=== PATIENT | female | born 1940 | race Caucasian/White ===

== ENCOUNTER → 2020-01-24 13:20 | Outpatient (BNVA) | payer MEDICARE, SELFPAY | PROVIDERS: PCP Family Medicine; Visit Provider Nurse Practitioner Family | DX: E11.65 Type 2 diabetes mellitus with hyperglycemia (principal); E55.9 Vitamin D deficiency, unspecified; Z79.4 Long term (current) use of insulin; E03.9 Hypothyroidism, unspecified; E78.5 Hyperlipidemia, unspecified; N18.9 Chronic kidney disease, unspecified | CPT/HCPCS: 80053; 80061; 82306; 83036; 83721; 84443; 85025 ==

== ENCOUNTER → 2020-09-18 08:40 | Outpatient (BNVA) | payer MEDICARE, SELFPAY | PROVIDERS: PCP Nurse Practitioner Family; Visit Provider Family Medicine | DX: E03.9 Hypothyroidism, unspecified (principal); E78.5 Hyperlipidemia, unspecified; N18.9 Chronic kidney disease, unspecified; E11.65 Type 2 diabetes mellitus with hyperglycemia; E55.9 Vitamin D deficiency, unspecified; Z79.4 Long term (current) use of insulin | CPT/HCPCS: 80053; 80061; 82306; 83036; 84443; 85025 ==

== ENCOUNTER → 2021-05-27 16:09 | Outpatient (BNVA) | payer MEDICARE, SELFPAY | PROVIDERS: PCP Nurse Practitioner Family; Visit Provider Internal Medicine Nephrology | DX: I10 Essential (primary) hypertension (principal); E55.9 Vitamin D deficiency, unspecified; E78.5 Hyperlipidemia, unspecified; E03.9 Hypothyroidism, unspecified; E11.65 Type 2 diabetes mellitus with hyperglycemia; Z79.4 Long term (current) use of insulin | CPT/HCPCS: 80053; 80061; 82043; 82306; 83036; 84100; 84443; 85025 ==

== ENCOUNTER 2021-06-08 09:25 | Outpatient (CLI) | payer MEDICARE, SELFPAY ==
--- NOTE | 2021-06-08 09:32 | US_ITS ---
WS: [id number] ULTRASOUND RENAL TECHNIQUE: Ultrasound examination of both kidneys. CLINICAL INFORMATION: CHRONIC KIDNEY DZ STAGE 4 COMPARISON: None. FINDINGS: RIGHT: Small simple right cortical cyst measuring 1.1 x 1.1 x 1.2 cm Right kidney is normal in size and appearance. Echogenicity: Normal. Cortical thickness: 1.3 cm; Normal. Hydronephrosis: None. Perinephric fluid: None. Right kidney measures: 9.6 cm x 4.7 cm x 5.3 cm. LEFT: Left kidney is normal in size and appearance. Echogenicity: Normal. Cortical thickness: cm; Normal. Hydronephrosis: None. Perinephric fluid: None. Left kidney measures: 9.6 cm x 5.1 cm x 5.4 cm. Normal visualized aorta. Normal bladder US/US renal BI* [id number] IMPRESSION: 1. Small simple right cortical cyst measuring 1.1 x 1.1 x 1.2 cm 2. No hydronephrosis in either kidney.
== END 2021-06-08 09:26 | disposition home or self-care (01) ==
PROVIDERS: PCP Family Medicine; Visit Provider Internal Medicine Nephrology
DX: N18.4 Chronic kidney disease, stage 4 (severe) (principal); N28.1 Cyst of kidney, acquired
CPT/HCPCS: 76770

== ENCOUNTER → 2021-08-25 09:37 | Outpatient (BNVA) | payer MEDICARE, SELFPAY | PROVIDERS: PCP Family Medicine; Visit Provider Internal Medicine Nephrology | DX: N18.4 Chronic kidney disease, stage 4 (severe) (principal) | CPT/HCPCS: 80069; 82043; 82310; 83970 ==

== ENCOUNTER → 2021-09-30 11:37 | Outpatient (BNVA) | payer MEDICARE, SELFPAY | PROVIDERS: PCP Family Medicine; Visit Provider Family Medicine | DX: E11.65 Type 2 diabetes mellitus with hyperglycemia (principal); Z79.4 Long term (current) use of insulin; E03.9 Hypothyroidism, unspecified; E78.2 Mixed hyperlipidemia; E55.9 Vitamin D deficiency, unspecified; I10 Essential (primary) hypertension | CPT/HCPCS: 80053; 80061; 82306; 83036; 84443; 85025 ==

== ENCOUNTER → 2022-06-02 10:12 | Outpatient (BNVA) | payer MEDICARE, SELFPAY | PROVIDERS: PCP Family Medicine; Visit Provider Family Medicine | DX: I10 Essential (primary) hypertension (principal); E55.9 Vitamin D deficiency, unspecified; Z79.4 Long term (current) use of insulin; E78.2 Mixed hyperlipidemia; K21.9 Gastro-esophageal reflux disease without esophagitis; E03.9 Hypothyroidism, unspecified; E11.65 Type 2 diabetes mellitus with hyperglycemia | CPT/HCPCS: 80053; 80061; 82306; 83036; 84443; 85025 ==

== ENCOUNTER → 2022-07-13 08:59 | Outpatient (BNVA) | payer MEDICARE, SELFPAY | PROVIDERS: PCP Family Medicine; Referring Provider Family Medicine; Visit Provider Podiatrist Foot & Ankle Surgery | DX: E11.65 Type 2 diabetes mellitus with hyperglycemia (principal); Z79.4 Long term (current) use of insulin; M21.611 Bunion of right foot; M21.612 Bunion of left foot; M20.41 Other hammer toe(s) (acquired), right foot; M20.42 Other hammer toe(s) (acquired), left foot | CPT/HCPCS: 99204 ==

== ENCOUNTER → 2022-09-20 09:00 | Outpatient (BNVA) | payer MEDICARE, SELFPAY | PROVIDERS: PCP Family Medicine; Visit Provider Family Medicine | DX: E55.9 Vitamin D deficiency, unspecified (principal); E11.65 Type 2 diabetes mellitus with hyperglycemia; Z79.4 Long term (current) use of insulin; I10 Essential (primary) hypertension | CPT/HCPCS: 80053; 82306; 83036; 85025 ==

== ENCOUNTER 2022-11-20 00:11 | Emergency (ER) | payer MEDICARE, SELFPAY ==
[2022-11-20 00:29] VITALS: BP 154/73; PULSE 68; RESP 18; TEMP 37.1; O2SAT 94; BMI 26.9
[2022-11-20 01:02] VITALS: BP 168/70; PULSE 60; RESP 16; O2SAT 97
--- NOTE | 2022-11-20 01:08 | ECG_ITS ---
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 Measurements Intervals [place] Rate: 68 P: 0 GA: 0 QRS: -23 QRSD: 83 T: 22 QT: 397 QTc: 423 Interpretive Statements SINUS RHYTHM WITH FIRST DEGREE AV BLOCK LOW QRS VOLTAGE IN PRECORDIAL LEADS [QRS DEFLECTION < 1.0 mV IN CHEST LEADS] POSSIBLE RIGHT VENTRICULAR CONDUCTION DELAY [RSR (QR) IN V1/V2] POSSIBLE ANTERIOR MYOCARDIAL INFARCTION , PROBABLY OLD INFERIOR MYOCARDIAL INFARCTION , PROBABLY OLD Compared to ECG 02/20/2015 16:02:37 Supraventricular rhythm now present Low QRS voltage now present Myocardial infarct finding now present Sinus rhythm no longer present First degree AV block no longer present Incomplete right bundle-branch block no longer present Electronically Signed On 11-20-2022 8:16:03 WORKERS' COMPENSATION CLAIMS SUPERVISOR by Ghazal Santamaria M.D. [id number]
[2022-11-20 01:09] LABS: Glucose Point of Care 63 mg/dL (70-110)
--- NOTE | 2022-11-20 01:26 | XRR_ITS ---
PROCEDURE INFORMATION: Exam: XR Chest Exam date and time: 11/20/2022 1:32 AM Age: 82 years old Clinical indication: Other: Dizzy; Additional info: Dizzy, diaphroesis TECHNIQUE: Imaging protocol: Radiologic exam of the chest. Views: 1 view. COMPARISON: No relevant prior studies available. FINDINGS: Lungs: There are increased interstitial opacity seen in the mid lower hemithoraces bilaterally, findings that could represent mild pulmonary edema. There are some strandy opacities present in the lower hemithoraces bilaterally that most probably represents atelectasis. Pleural spaces: Unremarkable. No pleural effusion. No pneumothorax. Heart/Mediastinum: Unremarkable. No cardiomegaly. Bones/joints: Unremarkable. XR/XR chest 1V portable [id number] IMPRESSION: 1. Subtle increased interstitial opacities are seen in the mid lower hemithoraces, findings that could represent pulmonary edema. 2. Strandy opacities in the lower hemithoraces most probably represents atelectasis versus parenchymal or pleural scarring.
[2022-11-20 01:30] VITALS: BP 143/70; RESP 16
--- NOTE | 2022-11-20 01:40 | ED_ITS ---
HPI - General Adult General: Chief complaint: General Medical Stated complaint: dizzy, clammy, low bp Time Seen by Provider: 11/20/22 00:50 Source: patient and family History of Present Illness: 82-year-old female with a history of diabetes. She is insulin-dependent. She notes that before arrival this evening, she began to feel exceptionally hot which is uncommon for her. She went into the next room. She was ashen and clammy according to her , but this resolved pretty quickly. She is asymptomatic now. She did not feel ill prior to this. She has not run a fever. She has not had a cough, congestion, or vomiting. Onset (ago): hour(s) Radiation: other Severity: mild Quality: other Pain Consistency: other Relieving factors: other Exacerbating factors: other Associated symptoms: Reports diaphoresis; Deny chest pain, confusion, cough, dyspnea, fevers/chills, headache(s), short of breath, vomiting or weakness Treatments prior to arrival: none Review of Systems Const: Reports: diaphoresis; Denies: fever(s) Eyes: Denies: change in vision ENMT: Denies: throat pain Card: Denies: chest pain Resp: Denies: dyspnea, productive cough or non-productive cough GI: Denies: abdominal pain or vomiting : Denies: difficulty voiding Neuro: Denies: headache(s) or confusion PFSH ED PFSH: Medical History Anxiety CKD (chronic kidney disease) Diabetes mellitus Foot deformity, bilateral GERD (gastroesophageal reflux disease) Hx of ovarian cancer Hx of pancreatitis Hyperlipidemia Hypertension Hypothyroid Iron deficiency anemia Osteoporosis Vitamin D deficiency Surgical History Hx of colonoscopy (~2013) Hx of hysterectomy Hx of thyroidectomy Family History Father Cancer Social History Smoking and tobacco status: never smoked Physical Exam Const: COMMON NORMALS: no acute distress GENERAL APPEARANCE: cooperative, comfortable and well kempt; not ill appearing and not frail appearing ORIENTATION/CONSCIOUSNESS: Yes awake, Yes oriented to person, Yes oriented to place and Yes oriented to time HENMT: COMMON NORMALS: normocephalic, atraumatic and Normal external nose present HEAD & SCALP: normocephalic and atraumatic FACE & SINUS: normal facial exam and face symmetric NOSE: Normal external nose present Eye: COMMON NORMALS: Equal, round and reactive pupils present and EOMs intact bilaterally PUPIL: Yes Equal, round and reactive pupils present Neck/C-Spine: GENERAL: Yes trachea midline Chest: CHEST: Yes Symmetrical chest wall rise Resp: COMMON NORMALS: normal respiratory effort, No retractions, No use of accessory muscles and clear to auscultation bilaterally AUSCULTATION: clear to auscultation bilaterally Cardio: COMMON NORMALS: regular rate and regular rhythm RATE: regular rate RHYTHM: regular rhythm GI: COMMON NORMALS: Normal to inspection, nondistended, normoactive bowel sounds present Extremity: COMMON NORMALS: no pedal edema Neuro: SERGEY COMA SCALE: document GCS findings Sergey coma scale eye opening: Spontaneous [place] coma scale verbal response: Orientated Sergey coma scale motor response: Obey commands [place] coma scale total score: 15 SENSORIUM/ORIENTATION: Yes oriented to person, Yes oriented to place and Yes oriented to time SENSORY EXAM: Yes extremities (intact) Psych: COMMON NORMALS: speech normal APPEARANCE: Yes well kempt SPEECH: Yes normal speech Skin: COMMON NORMALS: no rashes or lesions noted GENERAL SKIN EXAM: no rashes or lesions noted Course Vital Signs: Vital signs: Vital Signs Temperature 98.7 F 11/20/22 00:29 Pulse Rate 60 11/20/22 01:02 Respiratory Rate 16 11/20/22 01:30 Blood Pressure 143/70 11/20/22 01:30 Pulse Oximetry 97 11/20/22 01:02 Oxygen Delivery Me thod 11/20/22 00:29 [facility] - General Adult Medical Decision Making On presentation, patient's bedside glucose is 63. He is asymptomatic now, but this is likely the cause of her diaphoresis and hot feeling at home. Again, she is asymptomatic now. COVID and flu are pending.Chest x-ray is stable from prior. EKG shows a sinus rhythm with a first-degree AV block normal axis and no acute ST wave changes. Rate is 68. Urinalysis is pending. Urinalysis shows significant pyuria. We will treat this as well. Otherwise the patient remains asymptomatic, and stable. She will be allowed discharge. Lab Data Radiology Impressions Chest X-Ray 11/20/22 01:26 IMPRESSION: 1. Subtle increased interstitial opacities are seen in the mid lower hemithoraces, findings that could represent pulmonary edema. 2. Strandy opacities in the lower hemithoraces most probably represents atelectasis versus parenchymal or pleural scarring. Laboratory Results POC Glucose 71 mg/dL (70-110) 11/20/22 01:51 Urine Color Yellow (Yellow) 11/20/22 02:14 Urine Appearance Clear (CLEAR) 11/20/22 02:14 Urine pH 5 (5-7) 11/20/22 02:14 Ur Specific [place] 1.015 (1.005-1.030) 11/20/22 02:14 Urine Protein Neg (Negative) 11/20/22 02:14 Urine Glucose (UA) 1+ (Normal) H 11/20/22 02:14 Urine Ketones Negative (Negative) 11/20/22 02:14 Urine Blood Neg (Negative) 11/20/22 02:14 Urine Nitrate Negative (Negative) 11/20/22 02:14 Urine Bilirubin Neg (Negative) 11/20/22 02:14 Urine Urobilinogen Norm mg/dL (Negative) 11/20/22 02:14 Ur Leukocyte Esterase 1+ (Negative) H 11/20/22 02:14 Urine RBC 0-4 /hpf (0-2) H 11/20/22 02:14 Urine WBC 40-55 /hpf (0-5) H 11/20/22 02:14 Ur Squamous Epith Cells 0-4 /hpf (0-5) H 11/20/22 02:14 Amorphous Sediment Not Reportable 11/20/22 02:14 Urine Bacteria 3+ /hpf (NONE) H 11/20/22 02:14 Influenza Type A Ag negative (Negative) 11/20/22 01:07 Influenza Type B Ag negative (Negative) 11/20/22 01:07 SARS-CoV-2 Ag (Rapid) negative (Negative) 11/20/22 01:07 Discharge Plan Discharge Patient Disposition: Home Clinical Impression: Urinary tract infection, Hypoglycemia Condition: Stable Prescriptions: New levofloxacin 500 mg tablet 500 mg PO DAILY 7 Days Qty: 7 0RF No Action aspirin [Adult Low Dose Aspirin] 81 mg tablet,delayed release (DR/EC) 81 mg PO DAILY rosuvastatin 20 mg tablet See Rx Instructions .ROUTE .COMPLEX Qty: 90 3RF Dose Instruction: TAKE 1 TABLET BY MOUTH DAILY Rx Instructions: TAKE 1 TABLET BY MOUTH DAILY fluticasone propionate [Flonase Allergy Relief] 50 mcg/actuation spray,suspension 2 spray intranasal DAILY Qty: 16 1RF Rx Instructions: administer into each nostril glipizide 5 mg tablet 5 mg PO BID Qty: 180 3RF Rx Instructions: NEEDS APPOINTMENT insulin glargine [Lantus Solostar U-100 Insulin] 100 unit/mL (3 mL) insulin pen 23 unit SUBCUT BID Qty: 15 3RF levothyroxine 75 mcg tablet See Rx Instructions .ROUTE .COMPLEX Qty: 30 3RF Dose Instruction: Take 1 tablet by mouth once daily Rx Instructions: Take 1 tablet by mouth once daily losartan-hydrochlorothiazide 50-12.5 mg tablet See Rx Instructions .ROUTE .COMPLEX Qty: 90 3RF Dose Instruction: TAKE 1 TABLET BY MOUTH DAILY Rx Instructions: TAKE 1 TABLET BY MOUTH DAILY ([facility] [place]) pen needle, diabetic [BD Ultra-Fine Mini Pen Needle] 31 gauge x 3/16 needle See Rx Instructions .ROUTE .MEDSUPPLY Qty: 50 4RF Rx Instructions: As directed omega 6-owi-kxa-fish oil [Fish Oil] 1,000 mg (120 mg-180 mg) capsule 1 cap PO BID Qty: 60 3RF ergocalciferol (vitamin D2) 50 mcg (2,000 unit) capsule 50 mcg PO DAILY Qty: 30 2RF Jardiance 25 mg tablet 25 mg PO DAILY Qty: 30 4RF Rx Instructions: 340 B loratadine 10 mg tablet 10 mg PO DAILY (DME) lancets Misc See Rx Instructions .Route Qty: 100 1RF Rx Instructions: As directed ([facility] [place]) blood-glucose meter Kit See Rx Instructions .Route Qty: 1 0RF Rx Instructions: check blood sugar fasting and 2 hours after largest meal of the day (DME) Diabetic shoes See Rx Instructions .Route .MEDSUPPLY Qty: 1 0RF Rx Instructions: As directed ([facility] [place]) OneTouch Ultra Test Strip See Rx Instructions .ROUTE .COMPLEX Qty: 100 5RF Dose Instruction: USE 1 STRIP TO CHECK GLUCOSE 4 TIMES DAILY DIRECTED Rx Instructions: USE 1 STRIP TO CHECK GLUCOSE 4 TIMES DAILY DIRECTED Discharge Orders: Discharge ED (Routine); Ordered 11/20/22 Ordered By: Roverto Harvey Referrals: Ariadne Campos MD [Primary Care Provider] - 1-3 days Patient Instructions: Hypoglycemia in a Person with Diabetes (ED), Urinary Tract Infection in Older Adults (ED) Activity Restrictions/Additional Instructions: Continue to check your sugar every 2 hours for the next 8 hours, then back to normal checks. Ensure that your sugar is staying up appropriately. Do not take your nighttime insulin dose this morning. Antibiotics as directed. Return for fever, mental status changes, chest discomfort, shortness of breath, any other concerning symptoms. Coding Level of Care Code ED R&D Lab Technician for Chg Fwd Exam Comprehensive
[2022-11-20 01:58] LABS: Influenza A by IFA negative (Negative); Influenza B by IFA negative (Negative); SARS Covid-2 Antigen negative (Negative)
[2022-11-20 02:12] LABS: Glucose Point of Care 71 mg/dL (70-110)
[2022-11-20 02:30] LABS: Add Urine Microscopic? YES; Bilirubin Urine Neg (Negative); Blood Urine Neg (Negative); Glucose Urine UA 1+ (Normal); Ketones Urine Negative (Negative); Leukocyte Esterase Urine 1+ (Negative); Nitrate Urine Negative (Negative); Protein Urine Neg (Negative); RBC Urine 0-4 /hpf (0-2); Specific Gravity, Urine 1.015 (1.005-1.030); Squamous Epithelial Cell Urine 0-4 /hpf (0-5); Urine Appearance Clear (CLEAR); Urine Color Yellow (Yellow); Urobilinogen Urine Norm (Negative); WBC Urine 40-55 /hpf (0-5); pH Urine 5 (5-7)
[2022-11-20 02:31] LABS: Add Urine Culture? Yes; Bacteria Urine 3+ /hpf
[2022-11-20] MEDS: levoFLOXacin 500 mg Tablet PO (03:21)
== END 2022-11-20 03:22 | disposition home or self-care (01) ==
PROVIDERS: Nurse Practitioner Family; Emergency Provider Emergency Medicine; PCP Family Medicine
DX: N39.0 Urinary tract infection, site not specified (principal); E11.649 Type 2 diabetes mellitus with hypoglycemia without coma; E11.22 Type 2 diabetes mellitus with diabetic chronic kidney disease; I12.9 Hypertensive chronic kidney disease with stage 1 through stage 4 chronic kidney disease, or unspecified chronic kidney disease; N18.9 Chronic kidney disease, unspecified; Z85.43 Personal history of malignant neoplasm of ovary; E78.5 Hyperlipidemia, unspecified; Z79.84 Long term (current) use of oral hypoglycemic drugs; Z79.82 Long term (current) use of aspirin; Z79.4 Long term (current) use of insulin; Z20.822 Contact with and (suspected) exposure to COVID-19
CPT/HCPCS: 36416; 71045; 81001; 82962; 87077; 87086; 87186; 87426; 87804; 93005; 99285

== ENCOUNTER 2022-12-06 13:58 | Outpatient (CLI) | payer MEDICARE, SELFPAY ==
[2022-12-06 14:55] LABS: Basophils # 0.1 10^3/uL (0.0-0.1); Basophils % 0.6 %; Eosinophils # 0.3 10^3/uL (0.0-0.8); Eosinophils % 2.2 %; Hematocrit 34.6 % (37.0-47.0); Hemoglobin 11.2 g/dL (11.5-15.3); Lymphocytes # 3.5 10^3/uL (0.8-4.8); Lymphocytes % 30.5 %; Mean Corpuscular HGB Conc 32.4 g/dL (30.0-36.0); Mean Corpuscular Volume 92.8 fl (81-99); Mean Platelet Volume 9.9 fL (7.4-10.4); Monocytes % 8.8 %; Neutrophils # 6.68 10^3/uL (1.8-7.7); Neutrophils % 57.6 %; Nucleated Red Blood Cells % 0 %; Platelet Count 235 10^3/cmm (130-400); Red Blood Count 3.73 10^6/uL (4.1-5.3); Red Cell Distribution Width 12.3 % (12.1-15.1); White Blood Count 11.6 10^3/uL (4.0-10.0)
[2022-12-06 15:34] LABS: Creatinine Urine, Random 66 mg/dL (28-217); Microalbumin Random Urine 11 ug/dL (0-20)
[2022-12-06 15:39] LABS: Microalbum Creatinine Ratio Ur 167 mg/dL (0-20)
[2022-12-06 15:47] LABS: Calcium 9.6 mg/dL (8.5-10.5)
[2022-12-06 15:54] LABS: 25 Hydroxy Vitamin D 49 ng/mL (30-100); Anion Gap 15.5 (5-19); Blood Urea Nitrogen 63 mg/dL (8-23); Calcium 9.4 mg/dL (8.5-10.5); Carbon Dioxide 24 mmol/L (22-29); Chloride 104 mmol/L (98-107); Glucose 180 mg/dL (65-115); Potassium 4.5 mmol/L (3.5-5.1); Sodium 139 mmol/L (136-145)
== END 2022-12-06 13:59 | disposition home or self-care (01) ==
PROVIDERS: PCP Family Medicine; Visit Provider Registered Nurse
DX: N18.4 Chronic kidney disease, stage 4 (severe) (principal); E21.3 Hyperparathyroidism, unspecified; E55.9 Vitamin D deficiency, unspecified
CPT/HCPCS: 36415; 80069; 82044; 82306; 82310; 83970; 85025

== ENCOUNTER → 2022-12-12 12:09 | Outpatient (BNVA) | payer MEDICARE, SELFPAY | PROVIDERS: PCP Family Medicine; Visit Provider Family Medicine | DX: E11.65 Type 2 diabetes mellitus with hyperglycemia (principal); B37.9 Candidiasis, unspecified; E03.9 Hypothyroidism, unspecified; E78.2 Mixed hyperlipidemia; Z79.4 Long term (current) use of insulin | CPT/HCPCS: 80053; 80061; 83036; 84443; 85025 ==

== ENCOUNTER → 2023-04-11 11:07 | Outpatient (BNVA) | payer MEDICARE, SELFPAY | PROVIDERS: PCP Family Medicine; Visit Provider Internal Medicine Nephrology | DX: N18.9 Chronic kidney disease, unspecified (principal); E55.9 Vitamin D deficiency, unspecified; E11.65 Type 2 diabetes mellitus with hyperglycemia; Z79.4 Long term (current) use of insulin; E03.9 Hypothyroidism, unspecified; E11.22 Type 2 diabetes mellitus with diabetic chronic kidney disease | CPT/HCPCS: 80053; 80061; 80069; 82043; 82306; 82310; 83036; 83970; 84443; 85025 ==

== ENCOUNTER → 2023-05-15 12:13 | Outpatient (BNVA) | payer MEDICARE, SELFPAY | PROVIDERS: PCP Family Medicine; Visit Provider Internal Medicine Nephrology | DX: N18.9 Chronic kidney disease, unspecified (principal); R79.89 Other specified abnormal findings of blood chemistry | CPT/HCPCS: 82310; 83970; 84100 ==

== ENCOUNTER → 2023-07-03 11:12 | Outpatient (BNVA) | payer MEDICARE, SELFPAY | PROVIDERS: PCP Family Medicine; Visit Provider Internal Medicine Nephrology | DX: N18.9 Chronic kidney disease, unspecified; I12.9 Hypertensive chronic kidney disease with stage 1 through stage 4 chronic kidney disease, or unspecified chronic kidney disease | CPT/HCPCS: 80069; 82043; 82310; 83970; 85025 ==

== ENCOUNTER → 2023-07-24 10:24 | Outpatient (BNVA) | payer MEDICARE, SELFPAY | PROVIDERS: PCP Family Medicine; Visit Provider Family Medicine | DX: E78.5 Hyperlipidemia, unspecified; N18.9 Chronic kidney disease, unspecified; E03.9 Hypothyroidism, unspecified; E11.65 Type 2 diabetes mellitus with hyperglycemia; Z79.4 Long term (current) use of insulin; I12.9 Hypertensive chronic kidney disease with stage 1 through stage 4 chronic kidney disease, or unspecified chronic kidney disease; E11.22 Type 2 diabetes mellitus with diabetic chronic kidney disease | CPT/HCPCS: 80053; 80061; 83036; 84443; 85025 ==

== ENCOUNTER → 2023-11-14 12:32 | Outpatient (BNVA) | payer MEDICARE, SELFPAY | PROVIDERS: PCP Family Medicine; Visit Provider Family Medicine | DX: H61.21 Impacted cerumen, right ear (principal); E11.9 Type 2 diabetes mellitus without complications; Z79.4 Long term (current) use of insulin; E11.65 Type 2 diabetes mellitus with hyperglycemia; E03.9 Hypothyroidism, unspecified; E78.2 Mixed hyperlipidemia; I10 Essential (primary) hypertension; E78.5 Hyperlipidemia, unspecified; N18.9 Chronic kidney disease, unspecified | CPT/HCPCS: 80053; 85025 ==

== ENCOUNTER → 2024-02-15 10:00 | Outpatient (BNVA) | payer MEDICARE, SELFPAY | PROVIDERS: PCP Family Medicine; Visit Provider Family Medicine | DX: E55.9 Vitamin D deficiency, unspecified (principal); I10 Essential (primary) hypertension; E78.2 Mixed hyperlipidemia; N18.9 Chronic kidney disease, unspecified; E03.9 Hypothyroidism, unspecified; E11.65 Type 2 diabetes mellitus with hyperglycemia; Z79.4 Long term (current) use of insulin; E11.9 Type 2 diabetes mellitus without complications | CPT/HCPCS: 80053; 80061; 82306; 83036; 84443; 85025 ==

== ENCOUNTER 2024-04-30 11:14 | Emergency (ER) | payer MEDICARE, SELFPAY ==
--- NOTE | 2024-04-30 11:21 | XRR_ITS ---
PROCEDURE INFORMATION: Exam: XR Chest Exam date and time: 04/30/2024 11:53 AM Age: 83 years old Clinical indication: Shortness of breath; Patient HX: Reports working outside on Monday and states she feels like she over worked herself. PT C/O of back pain and states she seen a chiropractor yesterday. PT C/O of overall feeling weak and body aches since Monday. PT is diabetic. PT denies chest pain. ; Additional info: SOB TECHNIQUE: Imaging protocol: Radiologic exam of the chest. Views: 1 view. COMPARISON: CR (CHEST, ) 20/11/2022 01:32 FINDINGS: Lungs: Unremarkable. No consolidation. Minor senescent changes of the lung bases. Pleural spaces: Unremarkable. No pleural effusion. No pneumothorax. Heart/Mediastinum: Unremarkable. No cardiomegaly. Bones/joints: Unremarkable. XR/XR chest 1V portable [id number] IMPRESSION: No radiographic evidence of acute cardiopulmonary disease
--- NOTE | 2024-04-30 11:21 | ECG_ITS ---
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 Measurements Intervals [place] Rate: 93 P: 69 GA: 243 QRS: -58 QRSD: 126 T: 37 QT: 385 QTc: 480 Interpretive Statements SINUS RHYTHM WITH FIRST DEGREE AV BLOCK WITH OCCASIONAL VENTRICULAR PREMATURE COMPLEXES RIGHT BUNDLE BRANCH BLOCK [120+ ms QRS DURATION, UPRIGHT V1, 40+ ms S IN I/aVL/V4/V5/V6] LEFT ANTERIOR FASCICULAR BLOCK [QRS AXIS <= -45, QR IN I, RS IN II] POSSIBLE ANTERIOR MYOCARDIAL INFARCTION , OF INDETERMINATE AGE [30 ms Q WAVE IN V3/V4, OR R < 0.2 mV IN V4] Compared to ECG 11/20/2022 01:15:42 Ventricular premature complex(es) now present Right bundle-branch block now present Left anterior fascicular block now present Myocardial infarct finding still present Electronically Signed On 04-30-2024 16:19:12 CDT by Harpreet Recio M.D. [id number]
[2024-04-30 11:45] VITALS: BP 119/54; PULSE 63; RESP 18; TEMP 36.4; O2SAT 97; BMI 25.3
[2024-04-30 12:20] LABS: Basophils % 1.1 %; Hematocrit 35.8 % (36-47); Lymphocytes # 0.9 10^3/uL (0.8-4.8); Lymphocytes % 32.3 %; Mean Corpuscular HGB Conc 33.8 g/dL (30-55); Mean Corpuscular Hemoglobin 30.6 pg (27-33); Mean Corpuscular Volume 90.4 fl (85-98); Mean Platelet Volume 10.8 fL (7.4-10.4); Monocytes # 0.2 10^3/uL (0.2-0.9); Monocytes % 8.4 %; Neutrophils # 1.65 10^3/uL (1.8-7.7); Neutrophils % 57.8 %; Nucleated Red Blood Cells % 0 %; Platelet Count 96 10^3/cmm (157-399); Red Blood Count 3.96 10^6/uL (3.85-5.65); Red Cell Distribution Width 12.7 % (12.1-15.1); White Blood Count 2.85 10^3/uL (3.29-11.43)
[2024-04-30 12:47] LABS: Alanine Aminotransferase 47 U/L (0-33); Albumin Level 3.8 g/dL (3.5-5.2); Alkaline Phosphatase 49 U/L (35-105); Anion Gap 18.2 (5-19); Aspartate Amino Transferase 73 U/L (0-32); Blood Urea Nitrogen 62 mg/dL (8-23); Calcium 8.7 mg/dL (8.5-10.5); Carbon Dioxide 23 mmol/L (22-29); Chloride 98 mmol/L (98-107); Creatinine Clr Calc Pharmacy 9.3152; Globulin 3.2 g/dL (1.3-4.6); Glucose 209 mg/dL (65-115); NT Pro B Type Natriuretic Pept 962 pg/mL (0-450); Osmolality Calculated 304 mOsm/kg (285-295); Potassium 4.2 mmol/L (3.5-5.1); Slide Review Slide Review Perform; Sodium 135 mmol/L (136-145); Total Bilirubin 0.3 mg/dL (0.15-1.2)
[2024-04-30] MEDS: ondansetron 2 mg/ML SDV 2 mL 4 MG IVP (14:21)
[2024-04-30] MEDS: sodium chloride 0.9% 500 ML 999 ML IV (14:21)
[2024-04-30 14:23] VITALS: RESP 16
[2024-04-30] MEDS: morphine 4 mg/mL SDV 1 mL IVP (14:23)
--- NOTE | 2024-04-30 14:23 | ED_ITS ---
HPI - Weakness 2 General: Chief complaint: Weakness Stated complaint: sob Time Seen by Provider: 04/30/24 13:58 Source: patient Mode of arrival: ambulatory Limitations: no limitations History of Present Illness: 83-year-old female states she had been w orking outside on Monday states she felt like if she overdone it and strained her back states she been having muscle spasms in her back with some generalized weakness and not feeling well since then. She states she did have a chiropractor visit and felt slightly improved but still having pains in her back. She denies any fever she has had no vomiting or diarrhea. Denies any chest pain Associated symptoms: Denies chest pain, chills, easy bruising, fever(s), headache(s), nausea or vomiting Review of Systems 2 Const: Reports: body aches; Denies: fever(s), chills or change in appetite ENMT: Denies: throat pain or dental pain Card: Denies: chest pain Resp: Denies: dyspnea GI: Denies: abdominal pain, nausea, vomiting or diarrhea Musc: Reports: back pain; Denies: neck pain Skin/Breast: Denies: rash Neuro: Denies: headache(s) Reymundo/Lymph: Denies: easy bruising PFSH ED 2 PFSH: Medical History (Updated 04/30/24 @ 15:26 by Camila Medina MD) Enrolled in chronic care management Iron deficiency anemia Osteoporosis Anxiety Foot deformity, bilateral Hx of ovarian cancer Hx of pancreatitis Hypertension Vitamin D deficiency Hyperlipidemia CKD (chronic kidney disease) GERD (gastroesophageal reflux disease) Hypothyroid Diabetes mellitus Surgical History Hx of colonoscopy (~2013) Hx of thyroidectomy Hx of hysterectomy Family History Father Cancer Social History Smoking and tobacco/nicotine status: never used tobacco/nicotine Second hand smoke exposure: No Alcohol intake: never Substance/Drug Use: never Caregiver/support person: Yes (spouse) Lives independently: Yes Household members: spouse Marital status: service: No Current occupational status: retired Current gender identity: Female Special priya needs: No Agree to transfusion: Yes Physical Exam 2 Const: COMMON NORMALS: no acute distress, patient oriented x3 and healthy appearing HENMT: COMMON NORMALS: normocephalic and atraumatic HEAD & SCALP: n ormocephalic and atraumatic Eye: COMMON NORMALS: Equal, round and reactive pupils present and EOMs intact bilaterally PUPIL: Yes Equal, round and reactive pupils present Neck/C-Spine: COMMON NORMALS: full ROM and supple Chest: COMMONS NORMALS: normal inspection of the chest and normal palpation of entire chest wall Resp: COMMON NORMALS: normal respiratory effort, No retractions, No use of accessory muscles and clear to auscultation bilaterally AUSCULTATION: clear to auscultation bilaterally Cardio: COMMON NORMALS: regular rate, regular rhythm and No murmurs present (Cardio) RATE: regular rate RHYTHM: regular rhythm GI: COMMON NORMALS: Normal to inspection, nondistended, normoactive bowel sounds present, Soft to palpation, non-tender and no masses PALPATION: Yes Soft to palpation Extremity: COMMON NORMALS: normal to inspection and full ROM Neuro: COMMON NORMALS: patient oriented x3, moves all extremities and no focal motor deficits Psych: COMMON NORMALS: mental status grossly normal, Normal thought process present and cooperative THOUGHT PROCESS: Normal thought process present Skin: COMMON NORMALS: no rashes or lesions noted and no wounds GENERAL SKIN EXAM: no rashes or lesions noted Course 2 Vital Signs: Vital signs: Vital Signs Temperature 97.6 F 04/30/24 11:45 Pulse Rate 80 04/30/24 15:49 Respiratory Rate 18 04/30/24 15:49 Blood Pressure 114/65 04/30/24 15:49 Pulse Oximetry 94 04/30/24 15:49 Oxygen Delivery Me thod Room Air 04/30/24 14:25 MDM - Weakness Medical Decision Making Patient presents here with weakness she is also been having back pain since Monday this is likely muscle strain she feels much improved here after pain meds her vital signs here been normal she does have a slight leukocytosis no signs of infection no fever she is to follow-up with PCP next week have her CBC redrawn and rechecked if she feels worse she is return she understands agrees to plan Medical Records I reviewed the patient's medical records. Lab Data I reviewed the patient's lab results. 04/30/24 12:13 04/30/24 12:13 Radiology Impressions Chest X-Ray 04/30/24 11:21 IMPRESSION: No radiographic evidence of acute cardiopulmonary disease Laboratory Results WBC 2.85 10^3/uL (3.29-11.43) L 04/30/24 12:13 RBC 3.96 10^6/uL (3.85-5.65) 04/30/24 12:13 Hgb 12.10 g/dL (11.27-16.99) 04/30/24 12:13 Hct 35.8 % (36-47) L 04/30/24 12:13 MCV 90.4 fl (85-98) 04/30/24 12:13 MCH 30.6 pg (27-33) 04/30/24 12:13 MCHC 33.8 g/dL (30-55) 04/30/24 12:13 RDW 12.7 % (12.1-15.1) 04/30/24 12:13 Plt Count 96 10^3/cmm (157-399) L 04/30/24 12:13 MPV 10.8 fL (7.4-10.4) H 04/30/24 12:13 Neut % (Auto) 57.8 % 04/30/24 12:13 Lymph % (Auto) 32.3 % 04/30/24 12:13 [place] % (Auto) 8.4 % 04/30/24 12:13 Eos % (Auto) 0.0 % 04/30/24 12:13 Baso % (Auto) 1.1 % 04/30/24 12:13 Neut # (Auto) 1.65 10^3/uL (1.8-7.7) L 04/30/24 12:13 Lymph # (Auto) 0.9 10^3/uL (0.8-4.8) 04/30/24 12:13 [place] # (Auto) 0.2 10^3/uL (0.2-0.9) 04/30/24 12:13 Eos # (Auto) 0.0 10^3/uL (0.0-0.8) 04/30/24 12:13 Baso # (Auto) 0.0 10^3/uL (0.0-0.1) 04/30/24 12:13 Nucleated RBC % (auto) 0 % 04/30/24 12:13 Nucleated RBCs # 0.0 /100WBC 04/30/24 12:13 Sodium 135 mmol/L (136-145) L 04/30/24 12:13 Potassium 4.2 mmol/L (3.5-5.1) 04/30/24 12:13 Chloride 98 mmol/L (98-107) 04/30/24 12:13 Carbon Dioxide 23 mmol/L (22-29) 04/30/24 12:13 Anion Gap 18.2 (5-19) 04/30/24 12:13 BUN 62 mg/dL (8-23) H 04/30/24 12:13 Creatinine 4.0 mg/dL (0.5-0.9) H 04/30/24 12:13 GFR Calculation Not Reportable 04/30/24 12:13 Glucose 209 mg/dL (65-115) H 04/30/24 12:13 Calculated Osmolality 304 mOsm/kg (285-295) H 04/30/24 12:13 Calcium 8.7 mg/dL (8.5-10.5) 04/30/24 12:13 Total Bilirubin 0.3 mg/dL (0.15-1.2) 04/30/24 12:13 AST 73 U/L (0-32) H 04/30/24 12:13 ALT 47 U/L (0-33) H 04/30/24 12:13 Alkaline Phosphatase 49 U/L (35-105) 04/30/24 12:13 NT-Pro-B Natriuret Pep 962 pg/mL (0-450) H 04/30/24 12:13 Total Protein 7.0 g/dL (6.6-8.7) 04/30/24 12:13 Albumin 3.8 g/dL (3.5-5.2) 04/30/24 12:13 Globulin 3.2 g/dL (1.3-4.6) 04/30/24 12:13 TSH 4.03 uIU/mL (0.27-4.20) 04/30/24 12:13 Urine Color Yellow (Yellow) 04/30/24 12:20 Urine Appearance Cloudy (CLEAR) A 04/30/24 12:20 Urine pH 5 (5-7) 04/30/24 12:20 Ur Specific [place] 1.020 (1.005-1.030) 04/30/24 12:20 Urine Protein 1+ (Negative) H 04/30/24 12:20 Urine Glucose (UA) 4+ (Normal) H 04/30/24 12:20 Urine Ketones Negative (Negative) 04/30/24 12:20 Urine Blood 2+ (Negative) H 04/30/24 12:20 Urine Nitrate Negative (Negative) 04/30/24 12:20 Urine Bilirubin Neg (Negative) 04/30/24 12:20 Urine Urobilinogen Norm mg/dL (Negative) 04/30/24 12:20 Ur Leukocyte Esterase Negative (Negative) 04/30/24 12:20 Urine RBC 0-4 /hpf (0-2) H 04/30/24 12:20 Urine WBC Rare /hpf (0-5) 04/30/24 12:20 Ur Squamous Epith Cells 5-10 /hpf (0-5) H 04/30/24 12:20 Amorphous Sediment Not Reportable 04/30/24 12:20 Urine Bacteria 1+ /hpf (NONE) H 04/30/24 12:20 Fine Granular Casts 0-4 /lpf H 04/30/24 12:20 Urine Mucus 1+ /hpf 04/30/24 12:20 All radiology interpretation(s) finalized by discharge EKG Data EKG 1: I personally reviewed and interpreted this EKG as follows: EKG interpretation date: 04/30/24 EKG interpretation time: 14:07 Interpretation: nsr hr [address] or t wave abnormalities qrs 126 qtc 436 Discharge Plan Discharge Patient Disposition: Home Clinical Impression: Weakness, Back pain Condition: Stable Prescriptions: No Action aspirin [Adult Low Dose Aspirin] 81 mg tablet,delayed release (DR/EC) 81 mg PO DAILY (DME) OneTouch Ultra Test Strip See Rx Instructions .ROUTE .COMPLEX Qty: 100 5RF Dose Instruction: USE 1 STRIP TO CHECK GLUCOSE 4 TIMES DAILY DIRECTED Rx Instructions: USE 1 STRIP TO CHECK GLUCOSE 4 TIMES DAILY DIRECTED omega 8-rvs-unk-fish oil [Fish Oil] 1,000 mg (120 mg-180 mg) capsule 1 cap PO BID Qty: 60 3RF (DME) pen needle, diabetic [BD Ultra-Fine Mini Pen Needle] 31 gauge x 3/16 needle See Rx Instructions .ROUTE .MEDSUPPLY Qty: 50 4RF Rx Instructions: As directed loratadine 10 mg tablet 10 mg PO DAILY (DME) lancets Misc See Rx Instructions .Route Qty: 100 1RF Rx Instructions: As directed (DME) blood-glucose meter Kit See Rx Instructions .Route Qty: 1 0RF Rx Instructions: check blood sugar fasting and 2 hours after largest meal of the day (DME) Diabetic shoes See Rx Instructions .Route .MEDSUPPLY Qty: 1 0RF Rx Instructions: As directed triamcinolone acetonide 0.025 % cream See Rx Instructions .ROUTE .COMPLEX Rx Instructions: APPLY THIN LAYER TO AFFECTED AREA 1-2 TIMES DAILY NEEDED FOR ITCHING hydrochlorothiazide 12.5 mg tablet 12.5 mg PO DAILY Ozempic 0.25 mg or 0.5 mg (2 mg/3 mL) pen injector 0.25 mg SUBCUT .ONCE WEEKLY levothyroxine 75 mcg tablet 75 mcg PO QAM fluticasone propionate 50 mcg/actuation spray,suspension 2 spray intranasal DAILY PRN (Reason: ALLERGIES) rosuvastatin 20 mg tablet 20 mg PO DAILY Lantus Solostar U-100 Insulin 100 unit/mL (3 mL) insulin pen 23 unit SUBCUT BID Jardiance 25 mg tablet 25 mg PO DAILY Discharge Orders: Discharge ED (Routine); Ordered 04/30/24 Ordered By: Camila Medina Referrals: Ariadne Campos MD [Primary Care Provider] - 1-3 days Discharge Diet: Advance as tolerated Discharge Activity: Resume usual activity Patient Instructions: Weakness (ED) Coding Level of Care Code ED Contact Centre Supervisor for Julian Osborne
[2024-04-30 14:25] VITALS: BP 110/54; PULSE 82; RESP 16; O2SAT 90
[2024-04-30 14:35] LABS: Thyroid Stimulating Hormone 4.03 uIU/mL (0.27-4.20)
[2024-04-30 14:45] LABS: Add Urine Microscopic? YES; Bilirubin Urine Neg (Negative); Blood Urine 2+ (Negative); Glucose Urine UA 4+ (Normal); Ketones Urine Negative (Negative); Leukocyte Esterase Urine Negative (Negative); Nitrate Urine Negative (Negative); Protein Urine 1+ (Negative); Urine Appearance Cloudy (CLEAR); Urine Color Yellow (Yellow); Urobilinogen Urine Norm (Negative); pH Urine 5 (5-7)
[2024-04-30 14:46] LABS: Bacteria Urine 1+ /hpf; Fine Granular Casts Urine 0-4 /lpf; Mucus Urine 1+ /hpf; RBC Urine 0-4 /hpf (0-2); WBC Urine RARE /hpf (0-5)
[2024-04-30 15:49] VITALS: BP 114/65; PULSE 80; RESP 18; O2SAT 94
== END 2024-04-30 15:52 | disposition home or self-care (01) ==
PROVIDERS: Emergency Provider Emergency Medicine; PCP Family Medicine
DX: R53.1 Weakness (principal); M54.9 Dorsalgia, unspecified; Z79.82 Long term (current) use of aspirin; Z79.4 Long term (current) use of insulin; Z79.85 Long-term (current) use of injectable non-insulin antidiabetic drugs; Z85.43 Personal history of malignant neoplasm of ovary; E78.5 Hyperlipidemia, unspecified; E11.22 Type 2 diabetes mellitus with diabetic chronic kidney disease; I12.9 Hypertensive chronic kidney disease with stage 1 through stage 4 chronic kidney disease, or unspecified chronic kidney disease; N18.9 Chronic kidney disease, unspecified
CPT/HCPCS: 36415; 71045; 80053; 81001; 83880; 84443; 85025; 93005; 96361; 96374; 96375; 99285; J2270; J2405; J7040

== ENCOUNTER 2024-05-13 13:42 | Inpatient (IN) | payer MEDICARE, SELFPAY ==
[2024-05-13] VITALS (48 sets, daily range): BP systolic 103–122; BP diastolic 40–80; PULSE 81–105; RESP 14–28; TEMP 37.1–37.3; O2SAT 90–98
[2024-05-13 14:02] LABS: Glucose Point of Care 145 mg/dL (70-110)
--- NOTE | 2024-05-13 14:18 | CT_ITS ---
WS: [id number] CT HEAD NONCONTRAST HISTORY: ams TECHNIQUE: Contiguous axial imaging performed through the brain in 2.5 mm imaging. Bone and soft tiss ue windows. Sagittal and coronal reformats reviewed. All CT scans at [facility] use at least one of these dose optimization techniques: automated exposure control; mA and/or kV adjustment per pa tient size (includes targeted exams where dose is matched to clinical indication); or iterative recon struction. DLP: 1085.13 mGy.cm COMPARISON: 04/17/2015 No acute intracranial hemorrhage, midline shift or mass effect. Mild atrophy and small vessel ischemic disease. Normal posterior fossa. Ventricles: Normal size with no hydrocephalus. No inferior displacement the cerebellar tonsils. Paranasal sinuses: As visualized are clear. Mastoid air cells: Well pneumatized. Calvarium and scalp: Skull is intact with no soft tissue edema or swelling. CT/CT head wo con* [id number] IMPRESSION: 1. No acute intracranial hemorrhage or edema. 2. Mild atrophy and mild small vessel ischemic disease. Very similar to 015.
--- NOTE | 2024-05-13 14:18 | XRR_ITS ---
PROCEDURE INFORMATION: Exam: XR Chest Exam date and time: 05/13/2024 2:24 PM Age: 83 years old Clinical indication: Other: AMS TECHNIQUE: Imaging protocol: Radiologic exam of the chest. Views: 1 view. COMPARISON: CR XR chest 1V portable [id number] 04/30/2024 11:53 AM FINDINGS: Lungs: Slightly increased diffuse bilateral mild pulmonary edema and/or pneumonitis, possibly superimposed upon some fibrosis. Otherwise, unremarkable. Pleural spaces: Unremarkable. No pleural effusion. No pneumothorax. Heart/Mediastinum: Unremarkable. No cardiomegaly. Bones/joints: Unchanged mild scoliosis with mild and moderate multilevel spondylosis. XR/XR chest 1V portable [id number] IMPRESSION: Slightly increased diffuse bilateral pulmonary edema and/or pneumonitis, possibly superimposed upon some fibrosis.
[2024-05-13 14:52] LABS: Basophils # 0.1 10^3/uL (0.0-0.1); Basophils % 0.4 %; Hematocrit 29.1 % (36-47); Lymphocytes # 4.8 10^3/uL (0.8-4.8); Lymphocytes % 41.2 %; Mean Corpuscular HGB Conc 32.6 g/dL (30-55); Mean Corpuscular Hemoglobin 30.1 pg (27-33); Mean Corpuscular Volume 92.1 fl (85-98); Mean Platelet Volume 10.9 fL (7.4-10.4); Monocytes # 1.1 10^3/uL (0.2-0.9); Monocytes % 9.4 %; Neutrophils % 48.6 %; Nucleated Red Blood Cells % 0 %; Platelet Count 118 10^3/cmm (157-399); Red Blood Count 3.16 10^6/uL (3.85-5.65); Red Cell Distribution Width 13.3 % (12.1-15.1); White Blood Count 11.53 10^3/uL (3.29-11.43)
[2024-05-13 15:18] LABS: Slide Review Slide Review Perform
[2024-05-13 15:30] LABS: Alanine Aminotransferase 44 U/L (0-33); Albumin Level 3.2 g/dL (3.5-5.2); Alkaline Phosphatase 41 U/L (35-105); Anion Gap 18.1 (5-19); Aspartate Amino Transferase 73 U/L (0-32); Blood Urea Nitrogen 75 mg/dL (8-23); Calcium 7.7 mg/dL (8.5-10.5); Carbon Dioxide 19 mmol/L (22-29); Chloride 94 mmol/L (98-107); Creatinine Clr Calc Pharmacy 8.2647; Globulin 3.3 g/dL (1.3-4.6); Glucose 137 mg/dL (65-115); Osmolality Calculated 288 mOsm/kg (285-295); Potassium 4.1 mmol/L (3.5-5.1); Sodium 127 mmol/L (136-145); Thyroid Stimulating Hormone 5.05 uIU/mL (0.27-4.20); Total Bilirubin 0.3 mg/dL (0.15-1.2); Total Protein 6.5 g/dL (6.6-8.7)
--- NOTE | 2024-05-13 16:17 | ED_ITS ---
HPI - Weakness 2 General: Chief complaint: Weakness Stated complaint: stroke like symtoms Sent by PCP Time Seen by Provider: 05/13/24 16:16 Source: patient Mode of arrival: ambulatory History of Present Illness: 83-year-old female presents emergency ro om with generalized weakness altered mental status over the last couple of days. reports she has difficult time completing sentences, she stares off into space and seems to sleep excessively. Symptoms began initially on April 30. She was seen in the ER at that time for back pain which was treated as musculoskeletal. Her urine at that point was negative. She not having any fever sweats or chills or chills she denies any shortness of breath or cough. Some mild abdominal discomfort at this time. MD Complaint: generalized weakness and focal weakness Onset (ago): week(s) (2) Location: generalized Relieving factors: none Exacerbating factors: none Associated symptoms: Denies chest pain, chills, confusion, melena, decreased appetite, diaphoresis, dysuria, easy bruising, fever(s), headache(s), myalgias, nausea, rash, short of breath, syncope or vomiting Review of Systems 2 Const: Reports: fatigue and malaise; Denies: fever(s), chills or diaphoresis Card: Denies: chest pain or syncope Resp: Denies: dyspnea GI: Denies: nausea, vomiting or melena : Denies: dysuria Musc: Denies: neck pain or back pain Skin/Breast: Denies: rash Neuro: Denies: headache(s) or confusion Reymundo/Lymph: Denies: easy bruising PFSH ED 2 PFSH: Medical History Enrolled in chronic care management Iron deficiency anemia Osteoporosis Anxiety Foot deformity, bilateral Hx of ovarian cancer Hx of pancreatitis Hypertension Vitamin D deficiency Hyperlipidemia CKD (chronic kidney disease) GERD (gastroesophageal reflux disease) Hypothyroid Diabetes mellitus Surgical History Hx of colonoscopy (~2013) Hx of thyroidectomy Hx of hysterectomy Family History Father Cancer Social History Smoking and tobacco/nicotine status: never used tobacco/nicotine Second hand smoke exposure: No Alcohol intake: never Substance/Drug Use: never Caregiver/support person: Yes (spouse) Lives independently: Yes Household members: spouse Marital status: service: No Current occupational status: retired Current gender identity: Female Special priya needs: No Agree to transfusion: Yes Physical Exam 2 Const: COMMON NORMALS: no acute distress GENERAL APPEARANCE: cooperative and comfortable ORIENTATION/CONSCIOUSNESS: Yes awake, Yes oriented to person, Yes oriented to place and Yes oriented to time HENMT: COMMON NORMALS: normocephalic, atraumatic and hearing grossly normal bilaterally HEAD & SCALP: normocephalic and atraumatic Resp: COMMON NORMALS: normal respiratory effort, No retractions, No use of accessory muscles and clear to auscultation bilaterally AUSCULTATION: clear to auscultation bilaterally Cardio: COMMON NORMALS: regular rate, regular rhythm and No murmurs present (Cardio) RATE: regular rate RHYTHM: regular rhythm GI: COMMON NORMALS: Soft to palpation and No hepatosplenomegaly present A USCULTATION: Yes normoactive bowel sounds PALPATION: Yes Soft to palpation, No Tenderness to palpation present (GI), No Guarding due to palpation present (GI) and Yes No hepatosplenomegaly present Extremity: COMMON NORMALS: normal to inspection, capillary refill normal, no clubbing, cyanosis or edema, no calf tenderness and no pedal edema Neuro: SENSORIUM/ORIENTATION: Yes oriented to person, Yes oriented to place and Yes oriented to time Skin: COMMON NORMALS: no rashes or lesions noted GENERAL SKIN EXAM: no rashes or lesions noted Course 2 Vital Signs: Vital signs: Vital Signs Temperature 98.2 F 05/14/24 04:00 Pulse Rate 91 05/14/24 04:00 Respiratory Rate 22 H 05/14/24 04:00 Blood Pressure 124/63 05/14/24 04:00 Pulse Oximetry 95 05/14/24 04:00 Oxygen Delivery Me thod Room Air 05/14/24 04:00 MDM - Weakness Medical Decision Making Hemoccult negative Patient generally weak having difficulty with word finding since been going on for last several days CT did not show anything acute. She has some mild hyponatremia and some relatively new anemia BUN is 75 creatinine 4.4 which is not terribly far from what her baseline is her previous creatinine was 4.1. Due to her creatinine did not do a CTA head and neck. Will place on observation for further evaluation stroke new onset congestive heart failure anemia, acute on chronic kidney failure. She does have some increased pulmonary vascular markings as well as worsening cardiomegaly. Discussed with hospitalist will place on obs. Medical Records I reviewed the patient's medical records. Lab Data I reviewed the patient's lab results. 05/14/24 03:32 05/14/24 03:32 Radiology Impressions Chest X-Ray 05/13/24 14:18 IMPRESSION: Slightly increased diffuse bilateral pulmonary edema and/or pneumonitis, possibly superimposed upon some fibrosis. Head CT 05/13/24 14:18 IMPRESSION: 1. No acute intracranial hemorrhage or edema. 2. Mild atrophy and mild small vessel ischemic disease. Very similar to 04/17/2015. Laboratory Results WBC 11.53 10^3/uL (3.29-11.43) H 05/13/24 14:38 RBC 3.16 10^6/uL (3.85-5.65) L 05/13/24 14:38 Hgb 9.50 g/dL (11.27-16.99) L 05/13/24 14:38 Hct 29.1 % (36-47) L 05/13/24 14:38 MCV 92.1 fl (85-98) 05/13/24 14:38 MCH 30.1 pg (27-33) 05/13/24 14:38 MCHC 32.6 g/dL (30-55) 05/13/24 14:38 RDW 13.3 % (12.1-15.1) 05/13/24 14:38 Plt Count 118 10^3/cmm (157-399) L 05/13/24 14:38 MPV 10.9 fL (7.4-10.4) H 05/13/24 14:38 Neut % (Auto) 48.6 % 05/13/24 14:38 Lymph % (Auto) 41.2 % 05/13/24 14:38 [place] % (Auto) 9.4 % 05/13/24 14:38 Eos % (Auto) 0.0 % 05/13/24 14:38 Baso % (Auto) 0.4 % 05/13/24 14:38 Neut # (Auto) 5.60 10^3/uL (1.8-7.7) 05/13/24 14:38 Lymph # (Auto) 4.8 10^3/uL (0.8-4.8) 05/13/24 14:38 [place] # (Auto) 1.1 10^3/uL (0.2-0.9) H 05/13/24 14:38 Eos # (Auto) 0.0 10^3/uL (0.0-0.8) 05/13/24 14:38 Baso # (Auto) 0.1 10^3/uL (0.0-0.1) 05/13/24 14:38 Nucleated RBC % (auto) 0 % 05/13/24 14:38 Nucleated RBCs # 0.0 /100WBC 05/13/24 14:38 PT 13.50 SECONDS (12.1-14.9) 05/13/24 14:38 INR 1.00 (0.8-1.2) 05/13/24 14:38 APTT 35.4 SECONDS (23.9-36.7) 05/13/24 14:38 Sodium 127 mmol/L (136-145) L 05/13/24 14:38 Potassium 4.1 mmol/L (3.5-5.1) 05/13/24 14:38 Chloride 94 mmol/L (98-107) L 05/13/24 14:38 Carbon Dioxide 19 mmol/L (22-29) L 05/13/24 14:38 Anion Gap 18.1 (5-19) 05/13/24 14:38 BUN 75 mg/dL (8-23) H 05/13/24 14:38 Creatinine 4.4 mg/dL (0.5-0.9) H 05/13/24 14:38 GFR Calculation Not Reportable 05/13/24 14:38 Glucose 137 mg/dL (65-115) H 05/13/24 14:38 POC Glucose 141 mg/dL (70-110) H 05/13/24 16:18 Calculated Osmolality 288 mOsm/kg (285-295) 05/13/24 14:38 Lactic Acid 1.5 mmol/L (0.5-2.2) 05/13/24 14:38 Calcium 7.7 mg/dL (8.5-10.5) L 05/13/24 14:38 Total Bilirubin 0.3 mg/dL (0.15-1.2) 05/13/24 14:38 AST 73 U/L (0-32) H 05/13/24 14:38 ALT 44 U/L (0-33) H 05/13/24 14:38 Alkaline Phosphatase 41 U/L (35-105) 05/13/24 14:38 Creatine Kinase 42 U/L (26-192) 05/13/24 14:38 NT-Pro-B Natriuret Pep 1023 pg/mL (0-450) H 05/13/24 14:38 Total Protein 6.5 g/dL (6.6-8.7) L 05/13/24 14:38 Albumin 3.2 g/dL (3.5-5.2) L 05/13/24 14:38 Globulin 3.3 g/dL (1.3-4.6) 05/13/24 14:38 TSH 5.05 uIU/mL (0.27-4.20) H 05/13/24 14:38 Urine Color Yellow (Yellow) 05/13/24 17:57 Urine Appearance Clear (CLEAR) 05/13/24 17:57 Urine pH 5 (5-7) 05/13/24 17:57 Ur Specific Dante 1.020 (1.005-1.030) 05/13/24 17:57 Urine Protein 1+ (Negative) H 05/13/24 17:57 Urine Glucose (UA) 2+ (Normal) H 05/13/24 17:57 Urine Ketones Negative (Negative) 05/13/24 17:57 Urine Blood Neg (Negative) 05/13/24 17:57 Urine Nitrate Negative (Negative) 05/13/24 17:57 Urine Bilirubin Neg (Negative) 05/13/24 17:57 Urine Urobilinogen Norm mg/dL (Negative) 05/13/24 17:57 Ur Leukocyte Esterase Negative (Negative) 05/13/24 17:57 Urine RBC None /hpf (0-2) 05/13/24 17:57 Urine WBC Rare /hpf (0-5) 05/13/24 17:57 Ur Squamous Epith Cells None /hpf (0-5) 05/13/24 17:57 Amorphous Sediment 1+ /hpf 05/13/24 17:57 Urine Bacteria Trace /hpf (NONE) 05/13/24 17:57 Urine Opiates Screen Negative ng/mL (Negative) 05/13/24 17:57 Ur Barbiturates Screen Negative ng/mL (Negative) 05/13/24 17:57 Ur Phencyclidine Scrn Negative ng/mL (Negative) 05/13/24 17:57 Ur Amphetamines Screen Negative ng/mL (Negative) 05/13/24 17:57 U Benzodiazepines Scrn Negative ng/mL (Negative) 05/13/24 17:57 Urine Cocaine Screen Negative ng/mL (Negative) 05/13/24 17:57 U Marijuana (THC) Screen Negative ng/mL (Negative) 05/13/24 17:57 All radiology interpretation(s) finalized by discharge Discharge Plan Discharge Patient Disposition: Admitted As Inpatient Admit Provider: Mirella Torres Clinical Impression: Acute CVA (cerebrovascular accident), Anemia, Acute kidney injury superimposed on chronic kidney disease, CHF (congestive heart failure) Condition: Stable Coding Level of Care Code ED Habitat Management Coordinator for Julian Osborne
[2024-05-13 16:22] LABS: Glucose Point of Care 141 mg/dL (70-110)
--- NOTE | 2024-05-13 16:30 | ECG_ITS ---
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 Measurements Intervals [place] Rate: 90 P: 50 MA: 232 QRS: -45 QRSD: 128 T: 32 QT: 403 QTc: 493 Interpretive Statements SINUS RHYTHM WITH FIRST DEGREE AV BLOCK WITH FREQUENT VENTRICULAR PREMATURE COMPLEXES RIGHT BUNDLE BRANCH BLOCK [120+ ms QRS DURATION, UPRIGHT V1, 40+ ms S IN I/aVL/V4/V5/V6] LEFT ANTERIOR FASCICULAR BLOCK [QRS AXIS <= -45, QR IN I, RS IN II] Compared to ECG 04/30/2024 14:07:43 Ventricular premature complex(es) now present Myocardial infarct finding no longer present Electronically Signed On 05-17-2024 13:18:38 CDT by Tacho Galeano M.D. [id number]
[2024-05-13 16:56] LABS: Partial Thromboplastin Time 35.4 SECONDS (23.9-36.7)
[2024-05-13 16:57] LABS: Creatine Phosphokinase 42 U/L (26-192); Lactic Sepsis W/Reflex 1.5 mmol/L (0.5-2.2)
[2024-05-13 18:09] LABS: NT Pro B Type Natriuretic Pept 1023 pg/mL (0-450)
[2024-05-13 18:20] LABS: Amphetamines Screen Urine Negative (Negative); Barbiturates Screen Urine Negative (Negative); Benzodiazepines Screen Urine Negative (Negative); Cocaine Screen Urine Negative (Negative); Opiate Screen Urine Negative (Negative); PCP Screen Urine Negative (Negative); THC Screen Urine Negative (Negative); Urine Appearance Clear (CLEAR); Urine Color Yellow (Yellow); pH Urine 5 (5-7)
[2024-05-13 18:21] LABS: Add Urine Culture? No; Add Urine Microscopic? YES; Amorphous Sediment Urine 1+ /hpf; Bacteria Urine TRACE /hpf; Bilirubin Urine Neg (Negative); Blood Urine Neg (Negative); Glucose Urine UA 2+ (Normal); Ketones Urine Negative (Negative); Leukocyte Esterase Urine Negative (Negative); Nitrate Urine Negative (Negative); Protein Urine 1+ (Negative); Urobilinogen Urine Norm (Negative); WBC Urine RARE /hpf (0-5)
[2024-05-13 20:42] LABS: Glucose Point of Care 131 mg/dL (70-110)
--- NOTE | 2024-05-13 21:45 | PM.HP ---
Providers/Chief Complaint Admitting Physician: Mirella Torres MD Primary Care Provider: Ariadne Campos MD Chief Complaint: stroke like symtoms Sent by PCP History of Present Illness Annalise Mariscal is a 83 year old female With a history of diabetes and chronic kidney disease presents in her words for pain all over. She tells me this pain is severe and it has been going on ever since she started Ozempic. She states her is really worried about her and he thinks it is due to the Ozempic. She denies trouble remembering she denies trouble talking. She has no complaints except for overall pain but she is unable to describe this. Per the ER notes and signout to the hospitalist earlier as well as the current nurse that there was concern that the patient was possibly having a stroke. She was seen in her PCPs office patient was unable to urinate which she does report. She just recently had a urinary tract infection. She was found to have word finding difficulties and sent to the emergency room. In the emergency room the patient did show word finding difficulties workup however was negative. Review of Systems Const: Reports: body aches; Denies: fever(s) or chills Eyes: Denies: change in vision ENMT: Denies: throat pain or nasal congestion Card: Denies: chest pain or palpitations Resp: Denies: dyspnea or productive cough GI: Denies: abdominal pain, nausea, vomiting or change in stool character : Reports: difficulty voiding; Denies: dysuria Skin/Breast: Denies: rash or lesions Neuro: Denies: headache(s) or dizziness Psych: Denies: anxiety or depression Reymundo/Lymph: Denies: easy bruising or easy bleeding Medications/Allergies Home Medications Medication Instructions Recorded Confirmed Last Taken Type aspirin 81 mg tablet,delayed 81 mg PO DAILY 01/24/20 05/13/24 05/13/24 History release (Adult Low Dose Aspirin) blood-glucose meter #1 ea 11/30/21 05/13/24 Unknown Rx lancets #100 ea 06/02/22 05/13/24 Unknown Rx loratadine 10 mg tablet 10 mg PO DAILY 06/02/22 05/13/24 05/13/24 History Diabetic shoes #1 ea 09/14/22 05/13/24 Unknown Rx blood sugar diagnostic (OneTouch #100 ea 11/14/23 05/13/24 Unknown Rx Ultra Test strips) omega 4-xeh-tth-fish oil 1,000 mg 1 cap PO BID #60 caps 11/14/23 05/13/24 05/13/24 Rx (120 mg-180 mg) capsule (Fish Oil) pen needle, diabetic 31 gauge x #50 ea 11/14/23 05/13/24 Unknown Rx 3/16 (BD Ultra-Fine Mini Pen Needle) empagliflozin 25 mg tablet 25 mg PO DAILY 04/30/24 05/13/24 05/13/24 History (Jardiance) fluticasone propionate 50 2 spray intranasal DAILY PRN 04/30/24 05/13/24 Unknown History mcg/actuation nasal ALLERGIES spray,suspension hydrochlorothiazide 12.5 mg tablet 12.5 mg PO DAILY 04/30/24 05/13/24 05/13/24 History insulin glargine 100 unit/mL (3 23 unit SUBCUT BID 04/30/24 05/13/24 05/13/24 History mL) subcutaneous pen (Lantus Solostar U-100 Insulin) levothyroxine 75 mcg tablet 75 mcg PO QAM 04/30/24 05/13/24 05/13/24 History rosuvastatin 20 mg tablet 20 mg PO DAILY 04/30/24 05/13/24 05/13/24 History semaglutide 0.25 mg or 0.5 mg (2 0.25 mg SUBCUT .ONCE WEEKLY 04/30/24 05/13/24 3 Days Ago History mg/3 mL) subcutaneous pen injector ~05/10/24 (Ozempic) triamcinolone acetonide 0.025 % See Rx Instructions .Route .COMPLEX 04/30/24 05/13/24 Unknown History topical cream Allergies Allergy/AdvReac Type Severity Reaction Status Date / Time Sulfa (Sulfonamide Allergy Unknown Verified 05/13/24 13:57 Antibiotics) PFSH Acute PFSH: Medical History Enrolled in chronic care management Iron deficiency anemia Osteoporosis Anxiety Foot deformity, bilateral Hx of ovarian cancer Hx of pancreatitis Hypertension Vitamin D deficiency Hyperlipidemia CKD (chronic kidney disease) GERD (gastroesophageal reflux disease) Hypothyroid Diabetes mellitus Surgical History Hx of colonoscopy (~2013) Hx of thyroidectomy Hx of hysterectomy Family History Father Cancer Social History Smoking and tobacco/nicotine status: never used tobacco/nicotine Second hand smoke exposure: No Alcohol intake: never Substance/Drug Use: never Caregiver/support person: Yes (spouse) Lives independently: Yes Household members: spouse Marital status: service: No Current occupational status: retired Current gender identity: Female Special priya needs: No Agree to transfusion: Yes Vitals/I&O/Wt Last Vital Signs Temp 98.7 F 05/13/24 20:35 Pulse 93 05/13/24 20:55 Resp 25 H 05/13/24 20:55 BP 110/40 05/13/24 20:55 Pulse Ox 97 05/13/24 20:55 O2 Del Method Room Air 05/13/24 20:35 Weight last 48 hrs Weight 64.864 kg Physical Exam Narrative: Elderly white female in no acute distress at time of exam Neurologic she is alert and oriented to person place time and situation NIH of 1 with a right upper extremity drift. Patient does have slow recall mild impairment of memory. And some word finding difficulty however her NIH exam for speech is normal. HEENT head is normocephalic atraumatic pupils equal round and reactive to light and commendation extraocular muscles are intact there is no scleral icterus neck is supple no JVD carotid bruits or lymphadenopathy heart is irregular with ectopy no loud murmur is auscultated Lungs are clear to auscultation without wheezes rales or rhonchi Abdomen soft protuberant positive bowel sounds hyperactive no rebound rigidity or guarding nontender Extremities no clubbing cyanosis or edema Skin no rashes or lesions noted Psych patient's mood and affect is appropriate Back pelvis no CVA tenderness Data 05/13/24 14:38 05/13/24 14:38 Micro: Microbiology 05/13/24 17:06 Blood Culture - Preliminary Blood SPECIMEN COLLECTED 05/13/24 16:57 Blood Culture - Preliminary Blood SPECIMEN COLLECTED CT Head: My impression: Significant cerebral atrophy noted. Significant white matter disease noted Radiologist's impression: 1. No acute intracranial hemorrhage or edema. 2. Mild atrophy and mild small vessel ischemic disease. Very similar to 04/17/2015. CXR: My impression: Poor inspiratory effort No significant change in lungs from prior exam Perhaps some minimal fibrotic changes Radiologist's impression: IMPRESSION: Slightly increased diffuse bilateral pulmonary edema and/or pneumonitis, possibly superimposed upon some fibrosis. EKG 1: My Interpretation: Sinus rhythm rate of 90 first-degree AV block with AR interval of 0.23 frequent PVCs noted EKG computer-generated impression: SINUS RHYTHM WITH FIRST DEGREE AV BLOCK WITH FREQUENT VENTRICULAR PREMATURE COMPLEXES RIGHT BUNDLE BRANCH BLOCK [120+ ms QRS DURATION, UPRIGHT V1, 40+ ms S IN I/aVL/V4/V5/V6] LEFT ANTERIOR FASCICULAR BLOCK [QRS AXIS <= -45, QR IN I, RS IN II] A&P Assessment and plan (1) Memory impairment: MRI of brain to ascertain degree of atrophy and white matter disease and rule out stroke Formal MoCA or slums as a screening test for memory impairment is appropriate (2) Generalized pain: (3) Acute kidney injury superimposed on chronic kidney disease: Noted the significant increase in creatinine on 07/03/2023 as well as 04/2024. There are reports that patient has started new medications like Ozempic around that time Will hold both Jiardiance and Ozempic at this time Both medications can also worsen chronic kidney disease if patient is hypovolemic. Will gently hydrate patient UA is negative for urinary tract infection (4) Diabetes mellitus: See above Qualifiers: Diabetes mellitus type: type 2 Diabetes mellitus group home insulin use: with middle or intermediate school principal use Diabetes mellitus complication status: with hyperglycemia Qualified Code(s): E11.65 - Type 2 diabetes mellitus with hyperglycemia; Z79.4 - long term care phlebotomist (current) use of insulin (5) Abnormal CT of brain: MRI of brain Attestations Medical Necessity Statement*: Patient with acute on chronic kidney disease generalized pain and weakness and memory impairment patient requires a neurologic workup and close observation. Coding Level of Care Code Acute Code for [facility] Fwd Diagnoses Memory impairment R41.3 Generalized pain R52 Acute kidney injury superimposed on chronic kidney disease N17.9; N18.9 Type 2 diabetes mellitus with hyperglycemia, with long-term current use of insulin E11.65; Z79.4 Diabetes mellitus type: type 2 Diabetes mellitus middle or intermediate school principal insulin use: with group home use Diabetes mellitus complication status: with hyperglycemia Abnormal CT of brain R90.89
[2024-05-13] MEDS: sodium chloride 0.9% 1,000 ML 75 ML IV (22:50)
[2024-05-14] VITALS (8 sets, daily range): BP systolic 106–128; BP diastolic 52–64; PULSE 86–93; RESP 18–22; TEMP 36.7–37.2; O2SAT 94–99
[2024-05-14 04:14] LABS: Basophils # 0.1 10^3/uL (0.0-0.1); Basophils % 0.5 %; Lymphocytes # 4.3 10^3/uL (0.8-4.8); Lymphocytes % 42.9 %; Mean Corpuscular HGB Conc 33.2 g/dL (30-55); Mean Corpuscular Hemoglobin 30.1 pg (27-33); Mean Corpuscular Volume 90.6 fl (85-98); Mean Platelet Volume 11.3 fL (7.4-10.4); Monocytes # 0.8 10^3/uL (0.2-0.9); Monocytes % 8.2 %; Neutrophils # 4.78 10^3/uL (1.8-7.7); Neutrophils % 48.1 %; Nucleated Red Blood Cells % 0 %; Platelet Count 111 10^3/cmm (157-399); Red Blood Count 3.09 10^6/uL (3.85-5.65); Red Cell Distribution Width 13.3 % (12.1-15.1); White Blood Count 9.94 10^3/uL (3.29-11.43)
[2024-05-14 04:36] LABS: Anion Gap 19.8 (5-19); Carbon Dioxide 19 mmol/L (22-29); Chloride 93 mmol/L (98-107); Glucose 103 mg/dL (65-115); Osmolality Calculated 294 mOsm/kg (285-295); Phosphorus 4.3 mg/dL (2.5-4.5); Potassium 3.8 mmol/L (3.5-5.1); Sodium 128 mmol/L (136-145)
[2024-05-14 05:01] LABS: Blood Urea Nitrogen 89 mg/dL (8-23); Creatinine Clr Calc Pharmacy 7.4426
[2024-05-14 05:04] LABS: Slide Review Slide Review Perform
[2024-05-14 06:19] LABS: Glucose Point of Care 103 mg/dL (70-110)
[2024-05-14] MEDS: levothyroxine 75 mcg Tablet PO (06:24)
[2024-05-14] MEDS: aspirin 81 mg EC Tablet PO (09:19)
[2024-05-14] MEDS: insulin glargine 100 units/1 mL 23 UNIT SUBCUT ×2 (09:20→17:08)
[2024-05-14] MEDS: heparin 5,000 unit/mL INJ 1 mL 5000 UNIT SUBCUT ×2 (09:20→20:31)
--- NOTE | 2024-05-14 10:02 | PC.CHAP ---
Pastoral Care Encounter/Spiritual Assessment Type of Contact [] Declined canvas shrinker visit [] Patient/Family/Request visit [] Outpatient visit [] Follow-up visit [] Physician referral [] Code/Alert [x] Routine visit [] Staff referral [] Actively dying [] Patient sleeping [] Family support [] [] Out of room [] Palliative care [] [] Receiving care in room [] Pre-surgical visit [] Trauma [] Long length of stay [] ICU visit [] Other: Relational/Emotional Strength [x] Patient feels connected with others/family/visitors/staff [] Distress [] Loneliness/isolation [] Abandonment Spirituality of Patient [x] Person of Quynh [] Attends Episcopal of their Quynh [x] Believes in Prayer [] Reads Bible or Anabaptist materials [] There are Spiritual issues to be addressed Appeals Assistant Interventions [x] Prayer [x] Active listening [] Non-anxious presence [x] Spiritual/emotional support [] Crisis/trauma care [] Spiritual counseling [] Bereavement support [] Provided bereavement packet [] Provided Bible/devotional materials [] Provided toy/stuffed animal, coloring book to patient or family member [] Provided Communion [] Anointing/Warren [] Salvation [x] Completed spiritual assessment [] Other: Impact on Illness or Injury [] Angry [] Fearful [] Anxious [] Often cries [] Exhaustion [] Unable to work [] Unable to attend zoroastrianism [] Unable to walk/stand [] Unable to read [] Unable to drive [] Unable to eat/drink [] Unable to sleep [] Unable to be with family [] Patient intubated [] Other: Summary Time spent with patient 5 min
--- NOTE | 2024-05-14 11:02 | US_ITS ---
WS: [id number] RENAL ULTRASOUND HISTORY: carito COMPARISON: 06/08/2021 TECHNIQUE: 2-D and color Doppler imaging of the kidney submitted. Right kidney: 9.7 cm x 5.3 cm x 5.7 cm. Cortex: 1.3 cm Normal echogenicity with no hydronephrosis or mass. Left kidney: 9.2 cm x 5.4 cm x 4.8 cm. Cortex: 1.0 cm Normal echogenicity with no hydronephrosis or mass. Aorta: Normal. Urinary Bladder: Normal distention. US/US renal BI* [id number] IMPRESSION: Normal renal ultrasound.
--- NOTE | 2024-05-14 11:06 | ECG_ITS ---
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 Measurements Intervals [place] Rate: 89 P: 50 [place]: 220 QRS: -53 QRSD: 146 T: 20 QT: 414 QTc: 504 Interpretive Statements SINUS RHYTHM WITH FIRST DEGREE AV BLOCK RIGHT BUNDLE BRANCH BLOCK [120+ ms QRS DURATION, UPRIGHT V1, 40+ ms S IN I/aVL/V4/V5/V6] LEFT ANTERIOR FASCICULAR BLOCK [QRS AXIS <= -45, QR IN I, RS IN II] Compared to ECG 05/13/2024 16:30:29 Ventricular premature complex(es) no longer present Electronically Signed On 05-17-2024 13:22:29 CDT by Tacho Galeano M.D. [id number]
[2024-05-14 12:02] LABS: Estmated Average Glucose 200; Hemoglobin A1C 8.6 % (4.0-6.0)
[2024-05-14 12:09] LABS: Creatine Phosphokinase 63 U/L (26-192); Ferritin 935 ng/mL (15-150); Iron 14 ug/dL (37-145); NT Pro B Type Natriuretic Pept 912 pg/mL (0-450); Percent Saturation 8.4 % (20-50); Total Iron Binding Capacity 166 mcg/dl; Unsaturated Iron Binding 152 ug/dL (112-347)
[2024-05-14 12:14] LABS: HIV 1 & 2 Antibody Non-Reactive (Non-Reactiv); HIV 1 & 2 Antigen Non-Reactive (Non-Reactiv)
[2024-05-14 12:18] LABS: Hepatitis A Antibody IgM Non-Reactive (Nonreactive); Hepatitis B Core IgM Non-Reactive (Nonreactive); Hepatitis B Surface Antigen Non-Reactive (Nonreactive); Hepatitis C Virus Antibody Non-Reactive (Nonreactive)
[2024-05-14 12:33] LABS: Free T4 Free Thyroxine 1.09 ng/dL (0.82-1.77); T3 Free 0.9 PG/ML (2.0-4.4)
--- NOTE | 2024-05-14 12:37 | P.PN_ITS ---
Subjective 2 Subjective: - Morning, she does seem to have signifi cant memory slowing, fogginess, but is alert to person, to place, not to time -Her response are delayed, she does sign ificant cognitive slowing, and forgetfulness, but does get a lot of questions right, no focal neurologic deficits, no focal weakness, no slurring of words no facial droop no visual deficits ? She does report diffuse musculoskeletal aches and pains, no one placed in particular ? We discussed her uremia, possible uremic encephalopathy her renal failure she is shocked to learn about her worsening renal function ? She does tell me that she had a UTI about a week ago, finished antibiotics on Monday, she is not exactly sure which antibiotic she was prescribed ? Denies any flank pain no dysuria Vitals/I&O/Wt Last Vital Signs Temp 98.9 F 05/14/24 07:51 Pulse 88 05/14/24 07:51 Resp 21 H 05/14/24 07:51 BP 106/55 05/14/24 07:51 Pulse Ox 94 05/14/24 07:51 O2 Del Method Room Air 05/14/24 07:51 Weight last 48 hrs Weight 68.13 kg Weight 64.864 kg Physical Exam 2 Const: COMMON NORMALS: no acute distress and patient oriented x3 HENMT: COMMON NORMALS: normocephalic HEAD & SCALP: normocephalic Resp: COMMON NORMALS: normal respiratory effort, No retractions, No use of accessory muscles and clear to auscultation bilaterally AUSCULTATION: clear to auscultation bilaterally Cardio: COMMON NORMALS: regular rate, regular rhythm, S1 normal heart sound present and S2 normal heart sound present RATE: regular rate RHYTHM: r egular rhythm HEART SOUNDS: S1 normal heart sound present and S2 normal heart sound present GI: COMMON NORMALS: Normal to inspection, nondistended, normoactive bowel sounds present and non-tender Extremity: COMMON NORMALS: no calf tenderness and no pedal edema Neuro: COMMON NORMALS: patient oriented x3 Psych: COMMON NORMALS: mental status grossly normal Data 05/14/24 03:32 05/14/24 03:32 Micro: Microbiology 05/13/24 17:06 Blood Culture - Preliminary Blood SPECIMEN COLLECTED 05/13/24 16:57 Blood Culture - Preliminary Blood SPECIMEN COLLECTED A&P Assessment and plan (1) Memory impairment: (2) Generalized pain: (3) Acute kidney injury superimposed on chronic kidney disease: (4) Diabetes mellitus: See above Qualifiers: Diabetes mellitus type: type 2 Diabetes mellitus intermediate insulin use: with terminal operations manager use Diabetes mellitus complication status: with hyperglycemia Qualified Code(s): E11.65 - Type 2 diabetes mellitus with hyperglycemia; Z79.4 - MCC (current) use of insulin (5) Abnormal CT of brain: MRI of brain (6) Acute encephalopathy: (7) Uremic encephalopathy: (8) Hypertension: Qualifiers: Hypertension type: essential hypertension Qualified Code(s): I10 - Essential (primary) hypertension (9) CHF (congestive heart failure): (10) Hyperlipidemia: Qualifiers: Hyperlipidemia type: mixed hyperlipidemia Qualified Code(s): E78.2 - Mixed hyperlipidemia (11) Transaminitis: (12) Generalized weakness: Plan Acute encephalopathy ? Head CT within normal limits, no focal neurologic deficits ? UA within normal limits - chest x-ray shows diffuse bilateral pulm edema and/or pneumonitis, ? Could be uremic encephalopathy ? Could be component of hyponatremia ? Continue IV fluids ? Neurochecks, night stroke scale, aspiration precautions ? MRI of the brain ordered Uremic encephalopathy ? Monitor ? IV fluids Acute renal failure on chronic kidney disease ? Patient has CKD, at times looking at her blood work she has had uremia ? Renal ultrasound ? Urine studies ? Consult nephrology Transaminitis, ? Liver ultrasound ? HIV ? Acute hep ? Lipase, GGT Generalized weakness ? PT OT Acute on chronic anemia ? Iron studies, ferritin, Hemoccult stool Type 2 diabetes mellitus, continue Lantus 23 units twice daily, low-dose sliding scale Full code ? Heparin for DVT prophylaxis Attestations 2 Medical Necessity Statement*: Patient requires hospitalization, inpatient, greater than 2 midnights, for acute encephalopathy, uremic encephalopathy, NICOLAS, uremia, transaminitis, and High MDM includes number and complexity of problems actively addressed during encounter and amount and/or complexity of data reviewed/ordered as documented Diagnoses Memory impairment R41.3 Generalized pain R52 Acute kidney injury superimposed on chronic kidney disease N17.9; N18.9 Type 2 diabetes mellitus with hyperglycemia, with long-term current use of insulin E11.65; Z79.4 Diabetes mellitus type: type 2 Diabetes mellitus terminal operations manager insulin use: with terminal operations manager use Diabetes mellitus complication status: with hyperglycemia Abnormal CT of brain R90.89 Acute encephalopathy G93.40 Uremic encephalopathy G93.49; N19 Essential hypertension I10 Hypertension type: essential hypertension CHF (congestive heart failure) I50.9 Mixed hyperlipidemia E78.2 Hyperlipidemia type: mixed hyperlipidemia Transaminitis R74.01 Generalized weakness R53.1
[2024-05-14 13:01] LABS: Glucose Point of Care 133 mg/dL (70-110)
[2024-05-14 13:21] LABS: Troponin(5th) Baseline 64 ng/L (0-10)
[2024-05-14 15:04] LABS: Troponin 5 2HR 57.72 ng/L (0-10)
--- NOTE | 2024-05-14 15:07 | ECG_ITS ---
[facility] Test Date: 2024-05-14 Pat Name: Annalise Mariscal Department: Room: 104 Gender: Female [employer]ner: : 1940 Requested By: Joey Jack Order Number: [id number] Miladis MD: Tacho Galeano M.D. Measurements Intervals [place] Rate: 94 P: 59 IL: 250 QRS: -47 QRSD: 149 T: 32 QT: 361 QTc: 451 Interpretive Statements SINUS RHYTHM WITH FIRST DEGREE AV BLOCK WITH FREQUENT VENTRICULAR PREMATURE COMPLEXES RIGHT BUNDLE BRANCH BLOCK [120+ ms QRS DURATION, UPRIGHT V1, 40+ ms S IN I/aVL/V4/V5/V6] LEFT ANTERIOR FASCICULAR BLOCK [QRS AXIS <= -45, QR IN I, RS IN II] Compared to ECG 05/14/2024 11:28:44 Ventricular premature complex(es) now present Electronically Signed On 05-17-2024 13:50:02 CDT by Tacho Galeano M.D. [id number]
[2024-05-14 15:08] LABS: Troponin 5 2HR Delta -6.28 ABS# (0-10)
[2024-05-14 15:54] LABS: Amphetamines Screen Urine Negative (Negative); Barbiturates Screen Urine Negative (Negative); Benzodiazepines Screen Urine Negative (Negative); Cocaine Screen Urine Negative (Negative); Opiate Screen Urine Negative (Negative); PCP Screen Urine Negative (Negative); THC Screen Urine Negative (Negative)
[2024-05-14] MEDS: sodium chloride 0.9% 1,000 ML 75 ML IV (16:09)
[2024-05-14 16:11] LABS: Urea Nitrogen,Urine Random 383 mg/dL
[2024-05-14 16:17] LABS: Urine Creatinine 87 mg/dL (28-217)
[2024-05-14 16:19] LABS: Urine Protein Random 47 mg/dL
[2024-05-14 16:51] LABS: Urine Random Sodium < 10 mmol/L
[2024-05-14 17:42] LABS: Glucose Point of Care 244 mg/dL (70-110)
[2024-05-14 18:54] LABS: Glucose Point of Care 243 mg/dL (70-110)
[2024-05-14 19:01] LABS: Eosinophil Urine No Eosinophils Seen
[2024-05-14] MEDS: insulin lispro 100 unit/1 mL SUBCUT (19:20)
[2024-05-14 19:23] LABS: Troponin 5 6HR 58.95 ng/L (0-10)
[2024-05-14 19:24] LABS: Troponin 5 6HR Delta -5.05 ng/L (0-12)
[2024-05-14 20:48] LABS: Glucose Point of Care 232 mg/dL (70-110)
--- NOTE | 2024-05-14 22:05 | MR_ITS ---
WS: [id number] MRI HEAD WITHOUT CONTRAST TECHNIQUE: Sagittal T1, T2 axial, T2 axial FLAIR, axial and coronal T1 images, axial susceptibility w eighted imaging, axial diffusion weighted images, and coronal T2 images were obtained. CLINICAL INFORMATION: r/o stroke, atrophy, WMD COMPARISON: CT head 05/13/2024 FINDINGS: No evidence of restricted diffusion to suggest acute ischemia. Ventricular system and basal cisterns are patent. Mild small vessel changes. Moderate parenchymal volume loss. Small vessel changes in the letitia. Normal posterior fossa. Normal vascular flow voids at the skull base. No extra-axial fluid kyleigh ections. No evidence of mass or mass effect. Paranasal sinuses and mastoid air cells are well aerated . Small punctate foci of hemosiderin in the RIGHT thalamus. Moderate symmetric atrophy temporal lobes a nd hippocampal formations. MR/MR head wo con* [id number] IMPRESSION: 1. No evidence of restricted diffusion to suggest acute ischemia. 2. Mild small vessel changes. Moderate parenchymal volume loss. 3. Small vessel changes in the letitia. 4. Moderate symmetric atrophy temporal lobes and hippocampal formations. 5. Chronic punctate foci of hemosiderin in the RIGHT thalamus. 6. No other acute findings.
[2024-05-15] VITALS (28 sets, daily range): BP systolic 105–139; BP diastolic 50–76; PULSE 80–98; RESP 18–35; TEMP 36.4–37.6; O2SAT 87–100
[2024-05-15] MEDS: levothyroxine 75 mcg Tablet PO (05:44)
[2024-05-15] MEDS: sodium chloride 0.9% 1,000 ML 75 ML IV (05:44)
[2024-05-15 06:20] LABS: Glucose Point of Care 115 mg/dL (70-110)
[2024-05-15] MEDS: heparin 5,000 unit/mL INJ 1 mL 5000 UNIT SUBCUT ×2 (08:16→21:17)
[2024-05-15] MEDS: aspirin 81 mg EC Tablet PO (08:16)
[2024-05-15] MEDS: insulin glargine 100 units/1 mL 23 UNIT SUBCUT ×2 (08:16→17:38)
[2024-05-15 09:58] LABS: Basophils # 0.1 10^3/uL (0.0-0.1); Basophils % 0.5 %; Hematocrit 25.9 % (36-47); Lymphocytes # 5.5 10^3/uL (0.8-4.8); Mean Corpuscular HGB Conc 32.8 g/dL (30-55); Mean Corpuscular Hemoglobin 29.6 pg (27-33); Mean Corpuscular Volume 90.2 fl (85-98); Mean Platelet Volume 11.3 fL (7.4-10.4); Monocytes # 0.9 10^3/uL (0.2-0.9); Monocytes % 7.9 %; Neutrophils # 5.21 10^3/uL (1.8-7.7); Neutrophils % 44.3 %; Nucleated Red Blood Cells % 0 %; Platelet Count 117 10^3/cmm (157-399); Red Blood Count 2.87 10^6/uL (3.85-5.65); Red Cell Distribution Width 13.5 % (12.1-15.1); White Blood Count 11.78 10^3/uL (3.29-11.43)
[2024-05-15 10:24] LABS: Alanine Aminotransferase 42 U/L (0-33); Albumin Level 2.7 g/dL (3.5-5.2); Alkaline Phosphatase 43 U/L (35-105); Anion Gap 20.8 (5-19); Aspartate Amino Transferase 71 U/L (0-32); Calcium 6.5 mg/dL (8.5-10.5); Carbon Dioxide 17 mmol/L (22-29); Chloride 97 mmol/L (98-107); Globulin 2.9 g/dL (1.3-4.6); Glucose 117 mg/dL (65-115); Magnesium 2.1 mg/dL (1.7-2.3); NT Pro B Type Natriuretic Pept 1093 pg/mL (0-450); Osmolality Calculated 302 mOsm/kg (285-295); Potassium 3.8 mmol/L (3.5-5.1); Slide Review Slide Review Perform; Sodium 131 mmol/L (136-145); Total Bilirubin 0.2 mg/dL (0.15-1.2); Total Protein 5.6 g/dL (6.6-8.7)
[2024-05-15 10:32] LABS: Blood Urea Nitrogen 95 mg/dL (8-23)
--- NOTE | 2024-05-15 10:49 | PC.NURSE ---
family called for an update on patients condition explained what the POC was and they expressed concerns that the doctor had not been in contact with them. This nurse spoke with provider and expressed family concerns and he reported he would call them and provide an update and wanted to have a family meeting to discuss further POC. High critical labs reported during this call no new orders received from provider.
[2024-05-15 12:05] LABS: Glucose Point of Care 183 mg/dL (70-110)
[2024-05-15] MEDS: insulin lispro 100 unit/1 mL SUBCUT (12:27)
[2024-05-15 13:06] LABS: Ionized Calcium 0.9 mmol/L (1.1-1.4)
[2024-05-15 13:50] LABS: Alanine Aminotransferase 43 U/L (0-33); Albumin Level 2.7 g/dL (3.5-5.2); Alkaline Phosphatase 45 U/L (35-105); Anion Gap 20.8 (5-19); Aspartate Amino Transferase 73 U/L (0-32); Calcium 6.5 mg/dL (8.5-10.5); Carbon Dioxide 16 mmol/L (22-29); Chloride 97 mmol/L (98-107); Creatinine Clr Calc Pharmacy 6.5286; Globulin 3.1 g/dL (1.3-4.6); Glucose 189 mg/dL (65-115); Osmolality Calculated 305 mOsm/kg (285-295); Potassium 3.8 mmol/L (3.5-5.1); Sodium 130 mmol/L (136-145); Total Bilirubin 0.2 mg/dL (0.15-1.2); Total Protein 5.8 g/dL (6.6-8.7)
[2024-05-15 14:18] LABS: Blood Urea Nitrogen 97 mg/dL (8-23)
[2024-05-15 14:54] LABS: Calcium 6.5 mg/dL (8.5-10.5)
[2024-05-15 15:00] LABS: Parathyroid Hormone 230.7 pg/mL (15-65)
[2024-05-15 15:04] LABS: CENTROMERE B ANTIBODY <1.0 NEG AI (<1.0 NEG); JO-1 ANTIBODY <1.0 NEG AI (<1.0 NEG); RNP ANTIBODY <1.0 NEG AI (<1.0 NEG); SCL-70 ANTIBODY <1.0 NEG AI (<1.0 NEG); SJOGREN'S ANTIBODY (SS-A) <1.0 NEG AI (<1.0 NEG); SM ANTIBODY <1.0 NEG AI (<1.0 NEG); SS-B <1.0 NEG AI (<1.0 NEG)
[2024-05-15 15:14] LABS: Osmolality Urine 282 mOsm/kg (50-1200)
--- NOTE | 2024-05-15 15:32 | P.CONIM_ITS ---
Providers/Reason For Consult 2 Consulting Physician/Specialty*: kommana/nephrology Reason for Consult*: NICOLAS / CKD Attending Physician: Joey Jack MD Primary Care Provider: Ariadne Campos MD History of Present Illness History of Present Illness Annalise Mariscal is a 83 year old female Patient is 83-year-old female with past medical history of diabetes, hypertension, chronic kidney disease with a baseline creatinine in the 3 range about 3 months ago presented to the emergency department due to generalized weakness and generalized pain all over the body. She has started Ozempic 3 months ago and since then her p.o. intake has worsened including nausea and vomiting. Patient also complains of decreased urine output. Patient does not follow-up with nephrology on a regular basis. Creatinine was in the 4 range on presentation worsened progressively to the creatinine of 5.7 and a BUN of 97 today. Also has metabolic acidosis with a bicarbonate level of 16. Review of Systems 2 Narrative: Other ROS negative Medications/Allergies Home Medications Medication Instructions Recorded Confirmed Last Taken Type aspirin 81 mg tablet,delayed 81 mg PO DAILY 01/24/20 05/13/24 05/13/24 History release (Adult Low Dose Aspirin) blood-glucose meter #1 ea 11/30/21 05/13/24 Unknown Rx lancets #100 ea 06/02/22 05/13/24 Unknown Rx loratadine 10 mg tablet 10 mg PO DAILY 06/02/22 05/13/24 05/13/24 History Diabetic shoes #1 ea 09/14/22 05/13/24 Unknown Rx blood sugar diagnostic (OneTouch #100 ea 11/14/23 05/13/24 Unknown Rx Ultra Test strips) omega 6-lkk-jvm-fish oil 1,000 mg 1 cap PO BID #60 caps 11/14/23 05/13/24 05/13/24 Rx (120 mg-180 mg) capsule (Fish Oil) pen needle, diabetic 31 gauge x #50 ea 11/14/23 05/13/24 Unknown Rx 3/16 (BD Ultra-Fine Mini Pen Needle) empagliflozin 25 mg tablet 25 mg PO DAILY 04/30/24 05/13/24 05/13/24 History (Jardiance) fluticasone propionate 50 2 spray intranasal DAILY PRN 04/30/24 05/13/24 Unknown History mcg/actuation nasal ALLERGIES spray,suspension hydrochlorothiazide 12.5 mg tablet 12.5 mg PO DAILY 04/30/24 05/13/24 05/13/24 History insulin glargine 100 unit/mL (3 23 unit SUBCUT BID 04/30/24 05/13/24 05/13/24 History mL) subcutaneous pen (Lantus Solostar U-100 Insulin) levothyroxine 75 mcg tablet 75 mcg PO QAM 04/30/24 05/13/24 05/13/24 History rosuvastatin 20 mg tablet 20 mg PO DAILY 04/30/24 05/13/24 05/13/24 History semaglutide 0.25 mg or 0.5 mg (2 0.25 mg SUBCUT .ONCE WEEKLY 04/30/24 05/13/24 3 Days Ago History mg/3 mL) subcutaneous pen injector ~05/10/24 (Ozempic) triamcinolone acetonide 0.025 % See Rx Instructions .Route .COMPLEX 04/30/24 05/13/24 Unknown History topical cream Allergies Allergy/AdvReac Type Severity Reaction Status Date / Time Sulfa (Sulfonamide Allergy Unknown Verified 05/13/24 13:57 Antibiotics) Current Medications Generic Name Dose Route Start Last Admin Trade Name Freq PRN Reason Stop Dose Admin Aspirin 81 mg 05/14/24 09:00 05/15/24 08:16 Aspirin 81 Mg Ec Tablet PO 81 mg DAILY JOSE Administration Heparin Sodium (Porcine) 5,000 unit 05/14/24 09:00 05/15/24 08:16 Heparin 5,000 Unit/Ml Inj 1 Ml SUBCUT 5,000 unit Q12H JOSE Administration Sodium Chloride 1,000 mls @ 75 mls/hr 05/13/24 22:15 05/15/24 05:44 Sodium Chloride 0.9% IV 75 mls/hr .[id number] JOSE Administration Insulin Glargine 23 unit 05/14/24 09:00 05/15/24 08:16 Insulin Glargine 100 Units/1 Ml SUBCUT 23 unit BID JOSE Administration Insulin Human Lispro 0 unit 05/14/24 12:00 05/15/24 12:27 Insulin Lispro 100 Unit/1 Ml SUBCUT 4 unit TIDWM JOSE Administration Protocol PFSH Acute 2 PFSH: Medical History Enrolled in chronic care management Iron deficiency anemia Osteoporosis Anxiety Foot deformity, bilateral Hx of ovarian cancer Hx of pancreatitis Hypertension Vitamin D deficiency Hyperlipidemia CKD (chronic kidney disease) GERD (gastroesophageal reflux disease) Hypothyroid Diabetes mellitus Surgical History Hx of colonoscopy (~2013) Hx of thyroidectomy Hx of hysterectomy Family History Father Cancer Social History Smoking and tobacco/nicotine status: never used tobacco/nicotine Second hand smoke exposure: No Alcohol intake: never Substance/Drug Use: never Caregiver/support person: Yes (spouse) Lives independently: Yes Household members: spouse Marital status: service: No Current occupational status: retired Current gender identity: Female Special priya needs: No Agree to transfusion: Yes Vitals/I&O/Wt Last Vital Signs Temp 97.9 F 05/15/24 12:00 Pulse 93 05/15/24 14:00 Resp 25 H 05/15/24 12:00 BP 111/61 05/15/24 12:00 Pulse Ox 100 05/15/24 11:33 O2 Del Method Room Air 05/15/24 11:33 05/15/24 05/15/24 05/15/24 06:59 14:59 22:59 Intake Total 1000 / 2360 300 / 300 Output Total 300 / 750 Balance 700 / 1610 300 / 300 Weight last 48 hrs Weight 68.13 kg Physical Exam 2 Narrative: awake , alert HEENT s1s2 RRR per report Lungs clear per report No edema Data 05/15/24 09:24 05/15/24 12:57 Micro: Microbiology 05/13/24 17:06 Blood Culture - Preliminary Blood NEGATIVE TO DATE 05/13/24 16:57 Blood Culture - Preliminary Blood NEGATIVE TO DATE 05/14/24 10:13 Occult Blood (FIT) - Final Stool - Stool Aspirate A&P Assessment and plan (1) Acute kidney injury superimposed on chronic kidney disease: 1. Acute on chronic kidney disease stage IV: Baseline creatinine in the 3 range now creatinine has worsened to 5.7 associated with uremia and metabolic acidosis. NICOLAS likely contributed by prerenal in the setting of recent Ozempic use. Has normal renal ultrasound. -Will switch IV fluids to bicarbonate drip overnight, keep n.p.o. overnight, if no improvement in renal function will ask for tunneled hemodialysis catheter for HD initiation. -Avoid nephrotoxins and IV contrast studies. 2. Metabolic acidosis: Switch fluids to bicarbonate drip and monitor 3. Hyponatremia: Hypovolemic likely monitor History of diabetes History of hypertension Anemia: Hemoglobin 8.5, check iron studies will order JORDEN Patient evaluated using artificial car. 40 minutes. Consult Attestations 2 [facility] Ne[facility]ity [facility] Coding Level of Care Code Acute Code for Chg Fwd Diagnoses Acute kidney injury superimposed on chronic kidney disease N17.9; N18.9
[2024-05-15 16:09] LABS: COMPLEMENT COMPONENT C3C 117 mg/dL; COMPLEMENT COMPONENT C4C 29 mg/dL; COMPLEMENT, TOTAL (CH50) >60 U/mL (31-60)
[2024-05-15] MEDS: sodium bicarbonate 150 MEQ in dextrose 5% 1,000 ML 100 MEQ IV (16:36)
--- NOTE | 2024-05-15 16:51 | PM.PN ---
Subjective Subjective: - Patient was examined multiple times throughout the morning, with the family meeting in the afternoon, discussion with nephrology ? Patient was seen early in the morning, she was able to ambulate to the bathroom, use the bathroom she sitting up to side of bed, having her breakfast, I monitored all this, she is alert to person, place not to time she sees still seems a bit dazed, a bit groggy, response times are delayed, no focal neurologic deficits, no slurring of words, no focal weakness, she denies any headache, blurry vision, nausea, vomiting, during my history taking she gets a lot of the questions right however her response signs are delayed and she seems like she is in a cognitive fog ? I had a family meeting with patient, her daughter, and her at bedside this afternoon ? I had a detailed discussion with him that that Annalise has a history of chronic kidney disease, but I can see from her labs her creatinine is anywhere between 3-4 for the last year she is also developed episodes of her uremia as high as 91 over the last year, her family was a bit shocked to hear that she has chronic kidney disease and uremia, the etiology is likely from her history of diabetes and hypertension which is longstanding ? I think that the acute worsening of her renal function is likely because of Bactrim or use for her UTI, her last dose was on Monday ? In addition Ozempic could be an etiology behind her acute worsening in addition neck ? Nonetheless I have kept her here in the hospital, her renal ultrasound is within normal limits, I have consulted nephrology she is on IV fluids however creatinine continues to go upwards up to 5.7, if she continues to have uremia, and she is developing fluid overload ? I had a detailed discussion with her and her family about her goals of care, we had discussion about continuing medical interventions giving her time, watching her creatinine, and they are agreeable towards that ? However we also had a discussion about dialysis, given her persistent elevated creatinine her uremia, her now developing hyponatremia I think the likelihood of her needing dialysis is fairly likely, given her underlying chronic kidney disease, ? I had additional discussion with him about the risk of benefits of dialysis, shared decision making, they all voiced understanding, all questions answered etc. patient's daughter at bedside tells me that she has done a lot of research about dialysis with her underlying kidney disease and the family wants to pursue dialysis as Annalise has a good quality of life, a week before all this she was cleaning the dishes, taking care of herself taking care of family members, she is fairly independent ? I had a detailed discussion with Annalise about dialysis, what dialysis would entail, her quality of life with dialysis, that dialysis likely will be long-term for the rest of her life, discussed dialysis schedule, dialysis catheter placement, after discussing the risk benefits, Annalise and her family voiced understanding, all questions answered, agreed to proceed ? Patient's family and patient spoke to nephrology, they want to go ahead and proceed with dialysis possibly tomorrow, if her creatinine continues to worsen ? Spoke to psychological operations officer, plan is to monitor creatinine continue bicarb drip, if her creatinine worsens by tomorrow, develops worsening uremia, then will go ahead with tunneled dialysis catheter placement and dialysis Vitals/I&O/Wt Last Vital Signs Temp 97.9 F 05/15/24 12:00 Pulse 93 05/15/24 14:00 Resp 25 H 05/15/24 12:00 BP 111/61 05/15/24 12:00 Pulse Ox 100 05/15/24 11:33 O2 Del Method Room Air 05/15/24 11:33 05/15/24 05/15/24 05/15/24 06:59 14:59 22:59 Intake Total 1000 / 2360 300 / 300 811.25 / 1111.25 Output Total 300 / 750 Balance 700 / 1610 300 / 300 811.25 / 1111.25 Weight last 48 hrs Weight 68.13 kg Physical Exam Const: COMMON NORMALS: no acute distress EXAM LIMITATIONS: altered mental status ORIENTATION/CONSCIOUSNESS: Yes awake, Yes oriented to person, Yes oriented to place and Yes confused; not oriented to time Resp: COMMON NORMALS: normal respiratory effort, No retractions, No use of accessory muscles and clear to auscultation bilaterally AUSCULTATION: clear to auscultation bilaterally Cardio: COMMON NORMALS: regular rate, regular rhythm, S1 normal heart sound present and S2 normal heart sound present RATE: regular rate RHYTHM: regular rhythm HEART SOUNDS: S1 normal heart sound present and S2 normal heart sound present GI: COMMON NORMALS: Normal to inspection, nondistended, normoactive bowel sounds present and non-tender Extremity: COMMON NORMALS: no pedal edema Neuro: SENSORIUM/ORIENTATION: Yes oriented to person, Yes oriented to place and No oriented to time Psych: COMMON NORMALS: mental status grossly normal Data 05/15/24 09:24 05/15/24 12:57 Micro: Microbiology 05/13/24 17:06 Blood Culture - Preliminary Blood NEGATIVE TO DATE 05/13/24 16:57 Blood Culture - Preliminary Blood NEGATIVE TO DATE 05/14/24 10:13 Occult Blood (FIT) - Final Stool - Stool Aspirate A&P Assessment and plan (1) Memory impairment: (2) Generalized pain: (3) Acute kidney injury superimposed on chronic kidney disease: (4) Diabetes mellitus: See above Qualifiers: Diabetes mellitus type: type 2 Diabetes mellitus intermodal customer service insulin use: with intermodal customer service use Diabetes mellitus complication status: with hyperglycemia Qualified Code(s): E11.65 - Type 2 diabetes mellitus with hyperglycemia; Z79.4 - correction (current) use of insulin (5) Abnormal CT of brain: MRI of brain (6) Acute encephalopathy: (7) Uremic encephalopathy: (8) Hypertension: Qualifiers: Hypertension type: essential hypertension Qualified Code(s): I10 - Essential (primary) hypertension (9) CHF (congestive heart failure): (10) Hyperlipidemia: Qualifiers: Hyperlipidemia type: mixed hyperlipidemia Qualified Code(s): E78.2 - Mixed hyperlipidemia (11) Transaminitis: (12) Generalized weakness: Plan Acute encephalopathy ? Head CT within normal limits, no focal neurologic deficits ? UA within normal limits - chest x-ray shows diffuse bilateral pulm edema and/or pneumonitis, ? Likely related to uremic encephalopathy ? Could be component of hyponatremia ? Continue IV fluids ? Neurochecks, night stroke scale, aspiration precautions ? MRI of the brain ordered, no acute findings Uremic encephalopathy ? Monitor ? IV fluids Acute renal failure on chronic kidney disease ? Patient has CKD, at times looking at her blood work she has had uremia ? Renal ultrasound within normal limits ? Urine studies ? Likely component related to Bactrim toxicity ? Likely component related to possibly Ozempic ? Consult nephrology ? Will continue bicarb drip?monitor uremia, creatinine if she continues to have worsening uremia and renal function n.p.o. midnight, for dialysis catheter placement, and dialysis tomorrow Transaminitis, Generalized weakness ? PT OT Acute on chronic anemia ? Iron studies, ferritin, Hemoccult stool Type 2 diabetes mellitus, continue Lantus 23 units twice daily, low-dose sliding scale Full code ? Heparin for DVT prophylaxis Spoke to patient, family meeting, spoke to nephrology, spoke to general surgery, spoke to nursing staff, on bicarb drip Attestations Medical Necessity Statement*: Patient requires hospitalization for acute encephalopathy, uremic encephalopathy, acute renal failure, transaminitis, Diagnoses Memory impairment R41.3 Generalized pain R52 Acute kidney injury superimposed on chronic kidney disease N17.9; N18.9 Type 2 diabetes mellitus with hyperglycemia, with long-term current use of insulin E11.65; Z79.4 Diabetes mellitus type: type 2 Diabetes mellitus correction insulin use: with correction use Diabetes mellitus complication status: with hyperglycemia Abnormal CT of brain R90.89 Acute encephalopathy G93.40 Uremic encephalopathy G93.49; N19 Essential hypertension I10 Hypertension type: essential hypertension CHF (congestive heart failure) I50.9 Mixed hyperlipidemia E78.2 Hyperlipidemia type: mixed hyperlipidemia Transaminitis R74.01 Generalized weakness R53.1
[2024-05-15 16:59] LABS: Glucose Point of Care 155 mg/dL (70-110)
[2024-05-15] MEDS: acetaminophen 325 mg Tablet 650 MG PO (17:39)
[2024-05-15 20:18] LABS: Glucose Point of Care 326 mg/dL (70-110)
[2024-05-16] VITALS (28 sets, daily range): BP systolic 98–131; BP diastolic 39–59; PULSE 0–89; RESP 10–28; TEMP 36.7–37.1; O2SAT 94–98
[2024-05-16] MEDS: sodium bicarbonate 150 MEQ in dextrose 5% 1,000 ML 100 MEQ IV ×2 (03:39→15:20)
[2024-05-16 05:33] LABS: Basophils % 0.4 %; Eosinophils % 0.1 %; Hematocrit 24.1 % (36-47); Lymphocytes # 5.1 10^3/uL (0.8-4.8); Lymphocytes % 48.1 %; Mean Corpuscular HGB Conc 32.8 g/dL (30-55); Mean Corpuscular Hemoglobin 29.9 pg (27-33); Mean Corpuscular Volume 91.3 fl (85-98); Mean Platelet Volume 11.1 fL (7.4-10.4); Monocytes # 0.7 10^3/uL (0.2-0.9); Monocytes % 6.1 %; Neutrophils # 4.75 10^3/uL (1.8-7.7); Neutrophils % 44.7 %; Nucleated Red Blood Cells % 0 %; Platelet Count 114 10^3/cmm (157-399); Red Blood Count 2.64 10^6/uL (3.85-5.65); Red Cell Distribution Width 13.3 % (12.1-15.1); White Blood Count 10.62 10^3/uL (3.29-11.43)
[2024-05-16] MEDS: levothyroxine 88 mcg Tablet PO (05:42)
[2024-05-16 05:56] LABS: Alanine Aminotransferase 38 U/L (0-33); Albumin Level 2.7 g/dL (3.5-5.2); Alkaline Phosphatase 44 U/L (35-105); Anion Gap 19.4 (5-19); Aspartate Amino Transferase 60 U/L (0-32); Calcium 6.2 mg/dL (8.5-10.5); Carbon Dioxide 21 mmol/L (22-29); Chloride 96 mmol/L (98-107); Globulin 2.6 g/dL (1.3-4.6); Glucose 182 mg/dL (65-115); Magnesium 2.1 mg/dL (1.7-2.3); Osmolality Calculated 311 mOsm/kg (285-295); Phosphorus 4.5 mg/dL (2.5-4.5); Potassium 3.4 mmol/L (3.5-5.1); Sodium 133 mmol/L (136-145); Total Bilirubin 0.2 mg/dL (0.15-1.2); Total Protein 5.3 g/dL (6.6-8.7)
[2024-05-16 06:01] LABS: NT Pro B Type Natriuretic Pept 2313 pg/mL (0-450)
[2024-05-16 06:07] LABS: Blood Urea Nitrogen 97 mg/dL (8-23); Creatinine Clr Calc Pharmacy 6.3073
[2024-05-16 06:18] LABS: Slide Review Slide Review Perform
[2024-05-16 06:41] LABS: Glucose Point of Care 178 mg/dL (70-110)
[2024-05-16 07:15] LABS: THYROID PEROXIDASE ANTIBODIES 1 IU/mL (<9)
--- NOTE | 2024-05-16 08:08 | P.PN_ITS ---
Subjective 2 Subjective: denies any complaints Medications: Reviewed: Yes Vitals/I&O/Wt Last Vital Signs Temp 98.0 F 05/16/24 07:32 Pulse 85 05/16/24 07:32 Resp 22 H 05/16/24 07:32 BP 109/59 05/16/24 07:32 Pulse Ox 97 05/16/24 07:32 O2 Del Method Room Air 05/16/24 07:32 05/15/24 05/16/24 05/16/24 22:59 06:59 14:59 Intake Total 811.25 / 1111.25 1135 / 2246.25 Output Total 150 / 150 1025 / 1175 Balance 661.25 / 961.25 110 / 1071.25 Physical Exam 2 Narrative: awake , alert HEENT s1s2 RRR per report Lungs clear per report No edema Data 05/16/24 04:58 05/16/24 04:58 A&P Assessment and plan (1) Acute kidney injury superimposed on chronic kidney disease: 1. Acute on chronic kidney disease stage IV: Baseline creatinine in the 3 range now creatinine has worsened to 5.7 associated with uremia and metabolic acidosis. NICOLAS likely contributed by prerenal in the setting of recent Ozempic use. Has normal renal ultrasound. -on bicarbonate drip overnight, continue IVF and monitor renal fxn - noted renal fxn slightly worse , but pt on RA, and lytes stable , UOP picked up - if no improvement - will need hD -Avoid nephrotoxins and IV contrast studies. 2. Metabolic acidosis: Switch fluids to bicarbonate drip and monitor 3. Hyponatremia: Hypovolemic likely monitor History of diabetes History of hypertension Anemia: Hemoglobin 8.5, check iron studies will order JORDEN Patient evaluated using audiovisual cart. 40 minutes. Attestations 2 Medical Necessity Statement*: per [facility] Coding Level of Care Code Acute Code for Chg Fwd Diagnoses Acute kidney injury superimposed on chronic kidney disease N17.9; N18.9
[2024-05-16] MEDS: heparin 5,000 unit/mL INJ 1 mL 5000 UNIT SUBCUT ×2 (08:24→20:44)
[2024-05-16] MEDS: aspirin 81 mg EC Tablet PO (08:24)
[2024-05-16 11:50] LABS: C.Diff PCR (Lab) NEGATIVE (Negative)
[2024-05-16 12:33] LABS: Glucose Point of Care 179 mg/dL (70-110)
[2024-05-16] MEDS: insulin lispro 100 unit/1 mL SUBCUT ×2 (12:47→17:56)
[2024-05-16 12:55] LABS: ANA PATTERN Nuclear, Homogeneous; ANA SCREEN, IFA POSITIVE (NEGATIVE)
[2024-05-16 13:09] LABS: Basophils % 0.3 %; Eosinophils % 0.1 %; Hematocrit 26.6 % (36-47); Lymphocytes # 4.9 10^3/uL (0.8-4.8); Lymphocytes % 46.9 %; Mean Corpuscular HGB Conc 33.8 g/dL (30-55); Mean Corpuscular Hemoglobin 29.6 pg (27-33); Mean Corpuscular Volume 87.5 fl (85-98); Mean Platelet Volume 10.7 fL (7.4-10.4); Monocytes # 0.6 10^3/uL (0.2-0.9); Monocytes % 6.1 %; Neutrophils # 4.85 10^3/uL (1.8-7.7); Neutrophils % 46.4 %; Nucleated Red Blood Cells % 0 %; Platelet Count 140 10^3/cmm (157-399); Red Blood Count 3.04 10^6/uL (3.85-5.65); Red Cell Distribution Width 13.3 % (12.1-15.1); White Blood Count 10.46 10^3/uL (3.29-11.43)
[2024-05-16 13:23] LABS: Anion Gap 16.4 (5-19); Calcium 6.4 mg/dL (8.5-10.5); Carbon Dioxide 25 mmol/L (22-29); Chloride 97 mmol/L (98-107); Glucose 193 mg/dL (65-115); Osmolality Calculated 313 mOsm/kg (285-295); Potassium 3.4 mmol/L (3.5-5.1); Sodium 135 mmol/L (136-145)
[2024-05-16 13:31] LABS: Slide Review Slide Review Perform
--- NOTE | 2024-05-16 13:31 | P.PN_ITS ---
Subjective 2 Subjective: Patient was seen this morning, she is alert to person, to place, not to time, she follows all commands she was able to ambulate to the bathroom she is able to follow commands, I did detailed discussion with her about her creatinine, at 5.9 her uremia, she has had good urine output at about a liter, we discussed about monitoring her kidney function versus pursuing dialysis, I relayed my discussion with nephrology to patient, nephrology wants to watch her kidney function for now, see what the trajectory of her kidney function does, before fully committing patient to dialysis, patient respects that she tells me that she agrees she wants to try to avoid dialysis as much as she can, and doing if it is absolutely necessary, she is worried about the quality of life that she will have on dialysis, and a detailed discussion with her about dialysis, what it would entail, she tells me that she before all of this, was fairly functional, she can ambulate on her own and take care of her affairs on her own, the goal of dialysis would be ultimately for her to retain or return to her baseline level of functioning, she understands this, this is what she wants, she still tells me that she is agreeable to dialysis, but she wants to wait and see what the trajectory of her kidney function does over the next 24 hours, denies any shortness of breath, no chest pain, no lightheadedness, dizziness Vitals/I&O/Wt Last Vital Signs Temp 98.0 F 05/16/24 11:18 Pulse 73 05/16/24 11:18 Resp 17 05/16/24 11:18 BP 117/59 05/16/24 11:18 Pulse Ox 97 05/16/24 11:18 O2 Del Method Room Air 05/16/24 11:18 05/15/24 05/16/24 05/16/24 22:59 06:59 14:59 Intake Total 811.25 / 1111.25 1135 / 2246.25 Output Total 150 / 150 1025 / 1175 Balance 661.25 / 961.25 110 / 1071.25 Physical Exam 2 Const: COMMON NORMALS: no acute distress ORIENTATION/CONSCIOUSNESS: Yes awake, Yes oriented to person and Yes oriented to place; not oriented to time Resp: COMMON NORMALS: normal respiratory effort, No retractions, No use of accessory muscles and clear to auscultation bilaterally AUSCULTATION: clear to auscultation bilaterally Cardio: COMMON NORMALS: regular rate, regular rhythm, S1 normal heart sound present and S2 normal heart sound present RATE: regular rate RHYTHM: r egular rhythm HEART SOUNDS: S1 normal heart sound present and S2 normal heart sound present GI: COMMON NORMALS: Normal to inspection, nondistended, normoactive bowel sounds present and non-tender Extremity: COMMON NORMALS: no pedal edema Neuro: SENSORIUM/ORIENTATION: Yes oriented to person, Yes oriented to place and No oriented to time Psych: COMMON NORMALS: mental status grossly normal Data 05/16/24 04:58 05/16/24 12:57 A&P Assessment and plan (1) Memory impairment: (2) Generalized pain: (3) Acute kidney injury superimposed on chronic kidney disease: (4) Diabetes mellitus: See above Qualifiers: Diabetes mellitus type: type 2 Diabetes mellitus intermediate frame tender insulin use: with intermediate frame tender use Diabetes mellitus complication status: with hyperglycemia Qualified Code(s): E11.65 - Type 2 diabetes mellitus with hyperglycemia; Z79.4 - skilled nursing (current) use of insulin (5) Abnormal CT of brain: MRI of brain (6) Acute encephalopathy: (7) Uremic encephalopathy: (8) Hypertension: Qualifiers: Hypertension type: essential hypertension Qualified Code(s): I10 - Essential (primary) hypertension (9) CHF (congestive heart failure): (10) Hyperlipidemia: Qualifiers: Hyperlipidemia type: mixed hyperlipidemia Qualified Code(s): E78.2 - Mixed hyperlipidemia (11) Transaminitis: (12) Generalized weakness: Plan Acute encephalopathy ? Head CT within normal limits, no focal neurologic deficits ? UA within normal limits - chest x-ray shows diffuse bilateral pulm edema and/or pneumonitis, ? Likely related to uremic encephalopathy ? Could be component of hyponatremia ? Continue IV fluids ? Neurochecks, night stroke scale, aspiration precautions ? MRI of the brain ordered, no acute findings Uremic encephalopathy ? Monitor ? IV fluids Acute renal failure on chronic kidney disease ? Patient has CKD, at times looking at her blood work she has had uremia ? Renal ultrasound within normal limits ? Urine studies ? Likely component related to Bactrim toxicity ? Likely component related to possibly Ozempic ? Consult nephrology ? Will continue bicarb drip?monitor uremia, creatinine if she continues to have worsening uremia and renal function n.p.o. midnight, for dialysis catheter placement, and dialysis tomorrow Transaminitis, Generalized weakness ? PT OT Acute on chronic anemia ? Iron studies, ferritin, Hemoccult stool Type 2 diabetes mellitus, continue Lantus 23 units twice daily, low-dose sliding scale Full code ? Heparin for DVT prophylaxis Spoke to patient in detail, spoke to patient's daughter in detail about plans on holding off on dialysis for today, following kidney function, monitoring urine output, plans on possible dialysis based on kidney function tomorrow, monitor respiratory status, Attestations 2 Medical Necessity Statement*: Patient requires hospitalization for NICOLAS, uremia, uremic encephalopathy Diagnoses Memory impairment R41.3 Generalized pain R52 Acute kidney injury superimposed on chronic kidney disease N17.9; N18.9 Type 2 diabetes mellitus with hyperglycemia, with long-term current use of insulin E11.65; Z79.4 Diabetes mellitus type: type 2 Diabetes mellitus intermediate frame tender insulin use: with assisted use Diabetes mellitus complication status: with hyperglycemia Abnormal CT of brain R90.89 Acute encephalopathy G93.40 Uremic encephalopathy G93.49; N19 Essential hypertension I10 Hypertension type: essential hypertension CHF (congestive heart failure) I50.9 Mixed hyperlipidemia E78.2 Hyperlipidemia type: mixed hyperlipidemia Transaminitis R74.01 Generalized weakness R53.1
[2024-05-16 13:49] LABS: Blood Urea Nitrogen 91 mg/dL (8-23)
[2024-05-16 17:05] LABS: Glucose Point of Care 238 mg/dL (70-110)
[2024-05-16] MEDS: insulin glargine 100 units/1 mL 23 UNIT SUBCUT (17:55)
[2024-05-16 21:56] LABS: Glucose Point of Care 160 mg/dL (70-110)
[2024-05-16 22:20] LABS: Hepatitis B Surface Antigen Non-Reactive (Nonreactive)
[2024-05-17] VITALS (12 sets, daily range): BP systolic 101–145; BP diastolic 47–75; PULSE 64–86; RESP 13–26; TEMP 36.2–36.7; O2SAT 91–98
[2024-05-17] MEDS: sodium bicarbonate 150 MEQ in dextrose 5% 1,000 ML 100 MEQ IV ×2 (02:58→16:37)
[2024-05-17 05:03] LABS: Basophils % 0.4 %; Eosinophils # 0.1 10^3/uL (0.0-0.8); Eosinophils % 0.5 %; Hematocrit 25.6 % (36-47); Lymphocytes # 4.8 10^3/uL (0.8-4.8); Lymphocytes % 48.8 %; Mean Corpuscular HGB Conc 34.4 g/dL (30-55); Mean Corpuscular Volume 87.4 fl (85-98); Mean Platelet Volume 11.2 fL (7.4-10.4); Monocytes # 0.7 10^3/uL (0.2-0.9); Monocytes % 7.1 %; Neutrophils # 4.21 10^3/uL (1.8-7.7); Neutrophils % 42.9 %; Nucleated Red Blood Cells % 0 %; Platelet Count 154 10^3/cmm (157-399); Red Blood Count 2.93 10^6/uL (3.85-5.65); Red Cell Distribution Width 13.2 % (12.1-15.1); White Blood Count 9.83 10^3/uL (3.29-11.43)
[2024-05-17 05:25] LABS: Alanine Aminotransferase 35 U/L (0-33); Albumin Level 2.5 g/dL (3.5-5.2); Alkaline Phosphatase 51 U/L (35-105); Aspartate Amino Transferase 65 U/L (0-32); Calcium 6.2 mg/dL (8.5-10.5); Carbon Dioxide 29 mmol/L (22-29); Chloride 96 mmol/L (98-107); Globulin 3.2 g/dL (1.3-4.6); Glucose 117 mg/dL (65-115); Osmolality Calculated 318 mOsm/kg (285-295); Phosphorus 4.3 mg/dL (2.5-4.5); Sodium 140 mmol/L (136-145); Total Bilirubin 0.2 mg/dL (0.15-1.2); Total Protein 5.7 g/dL (6.6-8.7)
[2024-05-17 05:34] LABS: NT Pro B Type Natriuretic Pept 4008 pg/mL (0-450)
[2024-05-17 05:39] LABS: Slide Review Slide Review Perform
[2024-05-17 05:48] LABS: Anion Gap 18.3 (5-19); Potassium 3.3 mmol/L (3.5-5.1)
[2024-05-17 05:49] LABS: Blood Urea Nitrogen 88 mg/dL (8-23)
[2024-05-17 07:39] LABS: Glucose Point of Care 145 mg/dL (70-110)
[2024-05-17] MEDS: insulin glargine 100 units/1 mL 23 UNIT SUBCUT (07:39)
[2024-05-17] MEDS: levothyroxine 88 mcg Tablet PO (07:39)
[2024-05-17] MEDS: heparin 5,000 unit/mL INJ 1 mL 5000 UNIT SUBCUT ×2 (07:39→20:11)
[2024-05-17] MEDS: aspirin 81 mg EC Tablet PO (07:39)
[2024-05-17] MEDS: insulin lispro 100 unit/1 mL SUBCUT (07:39)
--- NOTE | 2024-05-17 08:54 | PC.CHAP ---
Pastoral Care Encounter/Spiritual Assessment Type of Contact [] Declined inset cutter visit [] Patient/Family/Request visit [] Outpatient visit [] Follow-up visit [] Physician referral [] Code/Alert [] Routine visit [] Staff referral [] Actively dying [x] Patient sleeping [] Family support [] [] Out of room [] Palliative care [] [] Receiving care in room [] Pre-surgical visit [] Trauma [] Long length of stay [] ICU visit [] Other: Relational/Emotional Strength [] Patient feels connected with others/family/visitors/staff [] Distress [] Loneliness/isolation [] Abandonment Spirituality of Patient [] Person of Quynh [] Attends Rastafari of their Quynh [] Believes in Prayer [] Reads Bible or Moravian materials [] There are Spiritual issues to be addressed Dairy Associate Interventions [] Prayer [] Active listening [] Non-anxious presence [] Spiritual/emotional support [] Crisis/trauma care [] Spiritual counseling [] Bereavement support [] Provided bereavement packet [] Provided Bible/devotional materials [] Provided toy/stuffed animal, coloring book to patient or family member [] Provided Communion [] Anointing/[place] [] Salvation [] Completed spiritual assessment [] Other: Impact on Illness or Injury [] Angry [] Fearful [] Anxious [] Often cries [] Exhaustion [] Unable to work [] Unable to attend yarsani [] Unable to walk/stand [] Unable to read [] Unable to drive [] Unable to eat/drink [] Unable to sleep [] Unable to be with family [] Patient intubated [] Other: Summary Time spent with patient
--- NOTE | 2024-05-17 10:00 | P.PN_ITS ---
Subjective 2 Subjective: feels better Medications: Reviewed: Yes Vitals/I&O/Wt Last Vital Signs Temp 97.8 F 05/17/24 08:00 Pulse 78 05/17/24 08:00 Resp 17 05/17/24 08:00 BP 145/62 05/17/24 08:00 Pulse Ox 91 05/17/24 08:00 O2 Del Method Room Air 05/17/24 08:00 05/16/24 05/17/24 05/17/24 22:59 06:59 14:59 Intake Total 1490 / 1730 1150 / 2880 Balance 1490 / 1730 1150 / 2880 Physical Exam 2 Narrative: awake , alert HEENT s1s2 RRR per report Lungs clear per report No edema Data 05/17/24 04:25 05/17/24 04:25 A&P Assessment and plan (1) Acute kidney injury superimposed on chronic kidney disease: 1. Acute on chronic kidney disease stage IV: Baseline creatinine in the 3 range now creatinine has worsened to 5.7 associated with uremia and metabolic acidosis. NICOLAS likely contributed by prerenal in the setting of recent Ozempic use. Has normal renal ultrasound. -continue IVF and monitor renal fxn - noted renal fxn improving , pt on RA, and lytes stable , UOP picked up - no acute indication for HD currently -Avoid nephrotoxins and IV contrast studies. 2. Metabolic acidosis: improved c 3. Hyponatremia: Hypovolemic likely monitor History of diabetes History of hypertension Anemia: Hemoglobin 8.8, check iron studies will order JORDEN Patient evaluated using audiovisual cart. 40 minutes. Attestations 2 Medical Necessity Statement*: per medicine Coding Level of Care Code Acute Code for Chg Fwd Diagnoses Acute kidney injury superimposed on chronic kidney disease N17.9; N18.9
[2024-05-17 11:12] LABS: Glucose Point of Care 119 mg/dL (70-110)
--- NOTE | 2024-05-17 13:49 | PM.PN ---
Subjective Subjective: Patient was seen this morning, she is alert to person, to place, not to time she can follow commands, denies any fevers, chills, no cough we had a detailed discussion about dialysis, she tells me that she wants to try to avoid dialysis as much as we can, her creatinine is improving, she has had good urine output, discussed monitoring, she is agreeable, at times during my conversation she does have delayed responses, cognitive slowing, no facial droop no slurring of words no focal weakness, Vitals/I&O/Wt Last Vital Signs Temp 98.0 F 05/17/24 11:31 Pulse 76 05/17/24 11:31 Resp 26 H 05/17/24 11:31 BP 120/72 05/17/24 11:31 Pulse Ox 93 05/17/24 11:31 O2 Del Method Room Air 05/17/24 11:31 05/16/24 05/17/24 05/17/24 22:59 06:59 14:59 Intake Total 1490 / 1730 1150 / 2880 Balance 1490 / 1730 1150 / 2880 Physical Exam Const: COMMON NORMALS: no acute distress EXAM LIMITATIONS: altered mental status ORIENTATION/CONSCIOUSNESS: Yes awake, Yes oriented to person and Yes oriented to place; not oriented to time Resp: COMMON NORMALS: normal respiratory effort, No retractions, No use of accessory muscles and clear to auscultation bilaterally AUSCULTATION: clear to auscultation bilaterally Cardio: COMMON NORMALS: regular rate, regular rhythm, S1 normal heart sound present and S2 normal heart sound present RATE: regular rate RHYTHM: regular rhythm HEART SOUNDS: S1 normal heart sound present and S2 normal heart sound present GI: COMMON NORMALS: Normal to inspection, nondistended, normoactive bowel sounds present and non-tender Extremity: COMMON NORMALS: no pedal edema Neuro: COMMON NORMALS: CN's II-XII intact bilaterally, moves all extremities and no focal motor deficits SENSORIUM/ORIENTATION: Yes oriented to person, Yes oriented to place and No oriented to time Psych: COMMON NORMALS: mental status grossly normal Data 05/17/24 04:25 05/17/24 04:25 A&P Assessment and plan (1) Memory impairment: (2) Generalized pain: (3) Acute kidney injury superimposed on chronic kidney disease: (4) Diabetes mellitus: See above Qualifiers: Diabetes mellitus type: type 2 Diabetes mellitus terminal manager insulin use: with terminal manager use Diabetes mellitus complication status: with hyperglycemia Qualified Code(s): E11.65 - Type 2 diabetes mellitus with hyperglycemia; Z79.4 - snf (current) use of insulin (5) Abnormal CT of brain: MRI of brain (6) Acute encephalopathy: (7) Uremic encephalopathy: (8) Hypertension: Qualifiers: Hypertension type: essential hypertension Qualified Code(s): I10 - Essential (primary) hypertension (9) CHF (congestive heart failure): (10) Hyperlipidemia: Qualifiers: Hyperlipidemia type: mixed hyperlipidemia Qualified Code(s): E78.2 - Mixed hyperlipidemia (11) Transaminitis: (12) Generalized weakness: Plan Acute encephalopathy ? Head CT within normal limits, no focal neurologic deficits ? UA within normal limits - chest x-ray shows diffuse bilateral pulm edema and/or pneumonitis, ? Likely related to uremic encephalopathy ? Could be component of hyponatremia ? Continue IV fluids ? Neurochecks, night stroke scale, aspiration precautions ? MRI of the brain ordered, no acute findings Uremic encephalopathy ? Monitor ? IV fluids Acute renal failure on chronic kidney disease ? Patient has CKD, at times looking at her blood work she has had uremia ? Renal ultrasound within normal limits ? Urine studies ? Likely component related to Bactrim toxicity ? Likely component related to possibly Ozempic ? Consult nephrology ? Will continue bicarb drip?monitor uremia, creatinine if she continues to have worsening uremia and renal function n.p.o. midnight, for dialysis catheter placement, and dialysis tomorrow Transaminitis, Generalized weakness ? PT OT Acute on chronic anemia, 8.4 ? Iron studies, ferritin, Hemoccult stool Type 2 diabetes mellitus, continue Lantus 23 units twice daily, low-dose sliding scale Full code ? Heparin for DVT prophylaxis Spoke to patient in detail, creatinine is 5.5, BUN 88, continue fluid resuscitation monitor urine output monitor creatinine, monitor mentation, she is at times confused this morning his encephalopathy, monitor closely Attestations Medical Necessity Statement*: Patient requires hospitalization for acute renal failure with CKD, now with episodes of encephalopathy Diagnoses Memory impairment R41.3 Generalized pain R52 Acute kidney injury superimposed on chronic kidney disease N17.9; N18.9 Type 2 diabetes mellitus with hyperglycemia, with long-term current use of insulin E11.65; Z79.4 Diabetes mellitus type: type 2 Diabetes mellitus terminal manager insulin use: with group home use Diabetes mellitus complication status: with hyperglycemia Abnormal CT of brain R90.89 Acute encephalopathy G93.40 Uremic encephalopathy G93.49; N19 Essential hypertension I10 Hypertension type: essential hypertension CHF (congestive heart failure) I50.9 Mixed hyperlipidemia E78.2 Hyperlipidemia type: mixed hyperlipidemia Transaminitis R74.01 Generalized weakness R53.1
--- NOTE | 2024-05-17 14:26 | PC.SOCIAL ---
IMM Updated Updated pt on IMM. No questions voiced. Provided pt a copy. Initialed, dated, & timed a copy & placed in chart.
[2024-05-17 14:43] LABS: Anion Gap 17.2 (5-19); Carbon Dioxide 28 mmol/L (22-29); Chloride 97 mmol/L (98-107); Glucose 224 mg/dL (65-115); Osmolality Calculated 320 mOsm/kg (285-295); Potassium 3.2 mmol/L (3.5-5.1); Sodium 139 mmol/L (136-145)
[2024-05-17 15:05] LABS: Blood Urea Nitrogen 83 mg/dL (8-23)
[2024-05-17 16:49] LABS: Glucose Point of Care 169 mg/dL (70-110)
--- NOTE | 2024-05-17 19:08 | PC.NURSE ---
Patient transferred to [facility] / [facility]. Report given to DENNISE Wong.
[2024-05-17 21:21] LABS: Glucose Point of Care 240 mg/dL (70-110)
[2024-05-18] VITALS (7 sets, daily range): BP systolic 109–144; BP diastolic 54–79; PULSE 65–78; RESP 15–18; TEMP 36.6–37; O2SAT 94–95
[2024-05-18] MEDS: levothyroxine 88 mcg Tablet PO (05:14)
[2024-05-18 05:52] LABS: Glucose Point of Care 103 mg/dL (70-110)
[2024-05-18 06:11] LABS: Basophils % 0.5 %; Eosinophils # 0.1 10^3/uL (0.0-0.8); Eosinophils % 0.9 %; Lymphocytes # 3.7 10^3/uL (0.8-4.8); Lymphocytes % 49.5 %; Mean Corpuscular HGB Conc 31.9 g/dL (30-55); Mean Corpuscular Hemoglobin 30.9 pg (27-33); Mean Corpuscular Volume 96.7 fl (85-98); Mean Platelet Volume 10.8 fL (7.4-10.4); Monocytes # 0.7 10^3/uL (0.2-0.9); Monocytes % 9.6 %; Neutrophils # 2.93 10^3/uL (1.8-7.7); Neutrophils % 39.2 %; Nucleated Red Blood Cells % 0 %; Platelet Count 157 10^3/cmm (157-399); Red Blood Count 2.69 10^6/uL (3.85-5.65); White Blood Count 7.48 10^3/uL (3.29-11.43)
[2024-05-18 06:40] LABS: Alanine Aminotransferase 43 U/L (0-33); Albumin Level 2.5 g/dL (3.5-5.2); Alkaline Phosphatase 40 U/L (35-105); Aspartate Amino Transferase 78 U/L (0-32); Blood Urea Nitrogen 75 mg/dL (8-23); Carbon Dioxide 32 mmol/L (22-29); Chloride 94 mmol/L (98-107); Globulin 2.8 g/dL (1.3-4.6); Glucose 104 mg/dL (65-115); Magnesium 1.9 mg/dL (1.7-2.3); NT Pro B Type Natriuretic Pept 4651 pg/mL (0-450); Osmolality Calculated 311 mOsm/kg (285-295); Phosphorus 4.3 mg/dL (2.5-4.5); Sodium 139 mmol/L (136-145); Total Bilirubin 0.2 mg/dL (0.15-1.2); Total Protein 5.3 g/dL (6.6-8.7)
[2024-05-18 06:41] LABS: Anion Gap 16.2 (5-19); Creatinine Clr Calc Pharmacy 7.1563; Potassium 3.2 mmol/L (3.5-5.1)
[2024-05-18 06:45] LABS: Calcium 5.9 mg/dL (8.5-10.5)
--- NOTE | 2024-05-18 06:56 | P.PN_ITS ---
Subjective 2 Subjective: doing better Medications: Reviewed: Yes Vitals/I&O/Wt Last Vital Signs Temp 98.6 F 05/18/24 04:00 Pulse 67 05/18/24 04:00 Resp 17 05/18/24 04:00 BP 112/54 05/18/24 04:00 Pulse Ox 94 05/18/24 04:00 O2 Del Method Room Air 05/18/24 04:00 05/17/24 05/17/24 05/18/24 14:59 22:59 06:59 Intake Total 1390 / 1390 Balance 1390 / 1390 Physical Exam 2 Narrative: awake , alert HEENT s1s2 RRR per report Lungs clear per report No edema Data 05/18/24 05:59 05/18/24 05:59 A&P Assessment and plan (1) Acute kidney injury superimposed on chronic kidney disease: 1. Acute on chronic kidney disease stage IV: Baseline creatinine in the 3 range now creatinine has worsened to 5.7 associated with uremia and metabolic acidosis. NICOLAS likely contributed by prerenal in the setting of recent Ozempic use. Has normal renal ultrasound. -continue IVF and monitor renal fxn - noted renal fxn improving , pt on RA, and lytes stable , UOP picked up - no acute indication for HD currently -Avoid nephrotoxins and IV contrast studies. 2. Metabolic acidosis: improved c 3. Hyponatremia: Hypovolemic likely monitor History of diabetes History of hypertension Anemia: Hemoglobin 8.3, check iron studies will order JORDEN Patient evaluated using audiovisual cart. 20 minutes. Attestations 2 [facility] Ne[facility]ity Statement*: [facility] C[facility] Level of Care Code Acute Code for g Fwd Diagnoses Acute kidney injury superimposed on chronic kidney disease N17.9; N18.9
[2024-05-18] MEDS: heparin 5,000 unit/mL INJ 1 mL 5000 UNIT SUBCUT ×2 (09:09→20:12)
[2024-05-18] MEDS: aspirin 81 mg EC Tablet PO (09:09)
[2024-05-18] MEDS: sodium bicarbonate 150 MEQ in dextrose 5% 1,000 ML 50 MEQ IV (09:30)
[2024-05-18 11:05] LABS: Glucose Point of Care 195 mg/dL (70-110)
--- NOTE | 2024-05-18 11:45 | PM.PN ---
Subjective Subjective: Patient was seen this morning, sitting up in a chair, denies any fevers, chills, no cough, overnight she had episodes of confusion this morning she alert to person, to place not to time she follows all commands, discussed her improving renal function, she is pleased with this, but frustrated about being here in the hospital, Vitals/I&O/Wt Last Vital Signs Temp 98.0 F 05/18/24 07:38 Pulse 77 05/18/24 07:38 Resp 15 05/18/24 07:38 BP 144/72 05/18/24 07:38 Pulse Ox 95 05/18/24 07:38 O2 Del Method Room Air 05/18/24 07:38 05/17/24 05/18/24 05/18/24 22:59 06:59 14:59 Intake Total 1390 / 1390 240 / 240 Balance 1390 / 1390 240 / 240 Physical Exam Const: COMMON NORMALS: no acute distress ORIENTATION/CONSCIOUSNESS: Yes awake, Yes oriented to person and Yes oriented to place Resp: COMMON NORMALS: normal respiratory effort, No retractions, No use of accessory muscles and clear to auscultation bilaterally AUSCULTATION: clear to auscultation bilaterally Cardio: COMMON NORMALS: regular rate, regular rhythm, S1 normal heart sound present and S2 normal heart sound present RATE: regular rate RHYTHM: regular rhythm HEART SOUNDS: S1 normal heart sound present and S2 normal heart sound present GI: COMMON NORMALS: Normal to inspection, nondistended, normoactive bowel sounds present and non-tender Extremity: COMMON NORMALS: no pedal edema Neuro: SENSORIUM/ORIENTATION: Yes oriented to person and Yes oriented to place Psych: COMMON NORMALS: mental status grossly normal Data 05/18/24 05:59 05/18/24 05:59 A&P Assessment and plan (1) Memory impairment: (2) Generalized pain: (3) Acute kidney injury superimposed on chronic kidney disease: (4) Diabetes mellitus: See above Qualifiers: Diabetes mellitus type: type 2 Diabetes mellitus ferry terminal supervisor insulin use: with ferry terminal supervisor use Diabetes mellitus complication status: with hyperglycemia Qualified Code(s): E11.65 - Type 2 diabetes mellitus with hyperglycemia; Z79.4 - intermodal truck driver (current) use of insulin (5) Abnormal CT of brain: MRI of brain (6) Acute encephalopathy: (7) Uremic encephalopathy: (8) Hypertension: Qualifiers: Hypertension type: essential hypertension Qualified Code(s): I10 - Essential (primary) hypertension (9) CHF (congestive heart failure): (10) Hyperlipidemia: Qualifiers: Hyperlipidemia type: mixed hyperlipidemia Qualified Code(s): E78.2 - Mixed hyperlipidemia (11) Transaminitis: (12) Generalized weakness: Plan Acute encephalopathy ? Head CT within normal limits, no focal neurologic deficits ? UA within normal limits - chest x-ray shows diffuse bilateral pulm edema and/or pneumonitis, ? Likely related to uremic encephalopathy ? Could be component of hyponatremia ? Continue IV fluids ? Neurochecks, night stroke scale, aspiration precautions ? MRI of the brain ordered, no acute findings Uremic encephalopathy ? Monitor ? IV fluids Acute renal failure on chronic kidney disease ? Patient has CKD, at times looking at her blood work she has had uremia ? Renal ultrasound within normal limits ? Urine studies ? Likely component related to Bactrim toxicity ? Likely component related to possibly Ozempic ? Consult nephrology ? Will continue bicarb drip?monitor uremia, creatinine if she continues to have worsening uremia and renal function n.p.o. midnight, for dialysis catheter placement, and dialysis tomorrow Transaminitis, Generalized weakness ? PT OT Acute on chronic anemia, 8.4 ? Iron studies, ferritin, Hemoccult stool Type 2 diabetes mellitus, continue Lantus 23 units twice daily, low-dose sliding scale Full code ? Heparin for DVT prophylaxis Plan for today, decrease fluids 50 cc an hour, monitor for fluid overload Attestations Medical Necessity Statement*: Patient requires hospitalization for acute renal failure, improving with IV fluids, intermittent encephalopathy, will obtain a UA Diagnoses Memory impairment R41.3 Generalized pain R52 Acute kidney injury superimposed on chronic kidney disease N17.9; N18.9 Type 2 diabetes mellitus with hyperglycemia, with long-term current use of insulin E11.65; Z79.4 Diabetes mellitus type: type 2 Diabetes mellitus ferry terminal supervisor insulin use: with longterm use Diabetes mellitus complication status: with hyperglycemia Abnormal CT of brain R90.89 Acute encephalopathy G93.40 Uremic encephalopathy G93.49; N19 Essential hypertension I10 Hypertension type: essential hypertension CHF (congestive heart failure) I50.9 Mixed hyperlipidemia E78.2 Hyperlipidemia type: mixed hyperlipidemia Transaminitis R74.01 Generalized weakness R53.1
[2024-05-18] MEDS: hyDROXYzine 25 mg Capsule PO (12:12)
[2024-05-18] MEDS: insulin lispro 100 unit/1 mL SUBCUT ×2 (12:13→17:50)
[2024-05-18] MEDS: ALPRAZolam 0.5 mg Tablet 0.25 MG PO (13:44)
[2024-05-18 14:44] LABS: Vit D 1,25 (Oh)2, Total 9 pg/mL (18-72); Vit D2 1,25 (Oh)2 <8 pg/mL; Vit D3 1,25 (Oh)2 9 pg/mL
--- NOTE | 2024-05-18 15:10 | PC.NURSE ---
pt c/o feeling very nervous ..pt with tremors.Dr Jack notified and he ordered a one time dose of hydroxyzine which did not affect pt. He was notified again..and he ordered 0.25 mg alprazolam.This settled pt down..and she is currently resting comfortably.
[2024-05-18 16:37] LABS: Add Urine Microscopic? NO; Charge for UA Resulting for Rev
[2024-05-18 16:51] LABS: Specific Gravity, Urine 1.015 (1.005-1.030); Urine Appearance Clear (CLEAR); Urine Color Yellow (Yellow); pH Urine 9 (5-7)
[2024-05-18 16:51] LABS: Anion Gap 16.2 (5-19); Blood Urea Nitrogen 72 mg/dL (8-23); Carbon Dioxide 34 mmol/L (22-29); Chloride 92 mmol/L (98-107); Glucose 169 mg/dL (65-115); Osmolality Calculated 313 mOsm/kg (285-295); Potassium 3.2 mmol/L (3.5-5.1); Sodium 139 mmol/L (136-145)
[2024-05-18 16:52] LABS: Bilirubin Urine Neg (Negative); Blood Urine Neg (Negative); Glucose Urine UA 2+ (Normal); Ketones Urine Negative (Negative); Leukocyte Esterase Urine Negative (Negative); Nitrate Urine Negative (Negative); Protein Urine Neg (Negative); Sulfosalicylic Acid Urine Negative (Negative); Urobilinogen Urine Norm (Negative)
[2024-05-18 16:52] LABS: Creatinine Clr Calc Pharmacy 7.1563
[2024-05-18 16:54] LABS: Calcium 5.7 mg/dL (8.5-10.5)
[2024-05-18 17:45] LABS: Glucose Point of Care 162 mg/dL (70-110)
[2024-05-18] MEDS: insulin glargine 100 units/1 mL 23 UNIT SUBCUT (17:50)
[2024-05-18 18:14] LABS: Ionized Calcium 0.8 mmol/L (1.1-1.4)
[2024-05-18 20:16] LABS: Glucose Point of Care 232 mg/dL (70-110)
[2024-05-19] VITALS (9 sets, daily range): BP systolic 106–144; BP diastolic 54–72; PULSE 65–88; RESP 16–19; TEMP 36.4–36.9; O2SAT 91–95
[2024-05-19] MEDS: levothyroxine 88 mcg Tablet PO (05:38)
[2024-05-19 05:41] LABS: Basophils % 0.3 %; Eosinophils # 0.1 10^3/uL (0.0-0.8); Eosinophils % 1.3 %; Hematocrit 24.6 % (36-47); Lymphocytes # 2.1 10^3/uL (0.8-4.8); Lymphocytes % 35.7 %; Mean Corpuscular HGB Conc 32.5 g/dL (30-55); Mean Corpuscular Volume 92.1 fl (85-98); Mean Platelet Volume 10.4 fL (7.4-10.4); Monocytes # 0.8 10^3/uL (0.2-0.9); Monocytes % 13.3 %; Neutrophils # 2.94 10^3/uL (1.8-7.7); Neutrophils % 49.1 %; Nucleated Red Blood Cells % 0 %; Platelet Count 156 10^3/cmm (157-399); Red Blood Count 2.67 10^6/uL (3.85-5.65); Red Cell Distribution Width 12.8 % (12.1-15.1)
[2024-05-19 05:47] LABS: Glucose Point of Care 89 mg/dL (70-110)
[2024-05-19 06:07] LABS: Blood Urea Nitrogen 68 mg/dL (8-23); Carbon Dioxide 36 mmol/L (22-29); Chloride 95 mmol/L (98-107); Glucose 82 mg/dL (65-115); Osmolality Calculated 311 mOsm/kg (285-295); Sodium 141 mmol/L (136-145)
[2024-05-19 06:17] LABS: Creatinine Clr Calc Pharmacy 7.4426
[2024-05-19 06:19] LABS: Calcium 5.7 mg/dL (8.5-10.5)
--- NOTE | 2024-05-19 07:55 | P.PN_ITS ---
Subjective 2 Subjective: feeling well Medications: Reviewed: Yes Vitals/I&O/Wt Last Vital Signs Temp 97.8 F 05/19/24 04:00 Pulse 65 05/19/24 06:00 Resp 17 05/19/24 04:00 BP 112/68 05/19/24 04:00 Pulse Ox 94 05/19/24 04:00 O2 Del Method Room Air 05/19/24 04:00 05/18/24 05/19/24 05/19/24 22:59 06:59 14:59 Intake Total 240 / 598 480 / 1078 Output Total 700 / 1300 500 / 1800 Balance -460 / -702 -20 / -722 Physical Exam 2 Narrative: awake , alert HEENT s1s2 RRR per report Lungs clear per report No edema Data 05/19/24 05:09 05/19/24 05:09 Micro: Microbiology 05/13/24 17:06 Blood Culture - Final Blood NO GROWTH AFTER 5 DAYS 05/13/24 16:57 Blood Culture - Final Blood NO GROWTH AFTER 5 DAYS A&P Assessment and plan (1) Acute kidney injury superimposed on chronic kidney disease: 1. Acute on chronic kidney disease stage IV: Baseline creatinine in the 3 range now creatinine has worsened to 5.7 associated with uremia and metabolic acidosis. NICOLAS likely contributed by prerenal in the setting of recent Ozempic use. Has normal renal ultrasound. -continue IVF and monitor renal fxn - noted renal fxn improving , pt on RA, and lytes stable , UOP picked up --> can DC home with close nephrology follow up - no acute indication for HD currently -Avoid nephrotoxins and IV contrast studies. 2. Metabolic acidosis: improved c 3. Hyponatremia: Hypovolemic likely monitor History of diabetes History of hypertension Anemia: Hemoglobin 8.3, check iron studies will order JORDEN Patient evaluated using audiovisual cart. 20 minutes. Attestations 2 Medical Necessity Statement*: per medicine Coding Level of Care Code Acute Code for Chg Fwd Diagnoses Acute kidney injury superimposed on chronic kidney disease N17.9; N18.9
[2024-05-19] MEDS: calcium carbonate 500 mg Chew Tablet 1500 MG PO (08:33)
[2024-05-19] MEDS: aspirin 81 mg EC Tablet PO (08:33)
[2024-05-19] MEDS: cholecalciferol (vitamin D3) 1,000 unit Tablet 2000 UNIT PO (08:33)
[2024-05-19] MEDS: potassium chloride ER 20 mEq Tablet PO (08:33)
[2024-05-19] MEDS: heparin 5,000 unit/mL INJ 1 mL 5000 UNIT SUBCUT ×2 (08:34→20:29)
[2024-05-19] MEDS: insulin glargine 100 units/1 mL 23 UNIT SUBCUT ×2 (09:23→17:32)
[2024-05-19 10:15] LABS: Alanine Aminotransferase 50 U/L (0-33); Albumin Level 2.5 g/dL (3.5-5.2); Alkaline Phosphatase 46 U/L (35-105); Anion Gap 15.6 (5-19); Aspartate Amino Transferase 90 U/L (0-32); Blood Urea Nitrogen 66 mg/dL (8-23); Carbon Dioxide 36 mmol/L (22-29); Chloride 94 mmol/L (98-107); Globulin 2.9 g/dL (1.3-4.6); Glucose 160 mg/dL (65-115); Magnesium 1.7 mg/dL (1.7-2.3); Osmolality Calculated 316 mOsm/kg (285-295); Potassium 3.6 mmol/L (3.5-5.1); Sodium 142 mmol/L (136-145); Total Bilirubin 0.3 mg/dL (0.15-1.2); Total Protein 5.4 g/dL (6.6-8.7)
[2024-05-19 10:16] LABS: Creatinine Clr Calc Pharmacy 7.4426
[2024-05-19] MEDS: ALPRAZolam 0.5 mg Tablet 0.25 MG PO ×3 (10:29→23:38)
[2024-05-19 11:58] LABS: Glucose Point of Care 176 mg/dL (70-110)
[2024-05-19] MEDS: insulin lispro 100 unit/1 mL SUBCUT (12:02)
--- NOTE | 2024-05-19 13:30 | P.PN_ITS ---
Subjective 2 Subjective: Patient was seen this morning, sitting up in a chair, she does report generalized weakness, alert to person, place, to time, we discussed her creatinine improving, she does have hypocalcemia, we discussed monitoring her creatinine and calcium until tomorrow and if continues to have a positive trajectory, plan on discharging tomorrow, she is agreeable Vitals/I&O/Wt Last Vital Signs Temp 97.6 F 05/19/24 08:00 Pulse 85 05/19/24 08:00 Resp 19 H 05/19/24 08:00 BP 136/72 05/19/24 08:00 Pulse Ox 91 05/19/24 08:00 O2 Del Method Room Air 05/19/24 08:00 05/18/24 05/19/24 05/19/24 22:59 06:59 14:59 Intake Total 240 / 598 480 / 1078 1550 / 1550 Output Total 700 / 1300 500 / 1800 500 / 500 Balance -460 / -702 -20 / -722 1050 / 1050 Physical Exam 2 Const: COMMON NORMALS: no acute distress and patient oriented x3 Resp: COMMON NORMALS: normal respiratory effort, No retractions, No use of accessory muscles and clear to auscultation bilaterally AUSCULTATION: clear to auscultation bilaterally Cardio: COMMON NORMALS: regular rate, regular rhythm, S1 normal heart sound present and S2 normal heart sound present RATE: regular rate RHYTHM: r egular rhythm HEART SOUNDS: S1 normal heart sound present and S2 normal heart sound present GI: COMMON NORMALS: Normal to inspection, nondistended, normoactive bowel sounds present and non-tender Extremity: COMMON NORMALS: no pedal edema Neuro: COMMON NORMALS: patient oriented x3 Psych: COMMON NORMALS: mental status grossly normal Data 05/19/24 05:09 05/19/24 09:48 Micro: Microbiology 05/13/24 17:06 Blood Culture - Final Blood NO GROWTH AFTER 5 DAYS 05/13/24 16:57 Blood Culture - Final Blood NO GROWTH AFTER 5 DAYS A&P Assessment and plan (1) Memory impairment: (2) Generalized pain: (3) Acute kidney injury superimposed on chronic kidney disease: (4) Diabetes mellitus: See above Qualifiers: Diabetes mellitus type: type 2 Diabetes mellitus termite control representative insulin use: with termite control representative use Diabetes mellitus complication status: with hyperglycemia Qualified Code(s): E11.65 - Type 2 diabetes mellitus with hyperglycemia; Z79.4 - nursing home (current) use of insulin (5) Abnormal CT of brain: MRI of brain (6) Acute encephalopathy: (7) Uremic encephalopathy: (8) Hypertension: Qualifiers: Hypertension type: essential hypertension Qualified Code(s): I10 - Essential (primary) hypertension (9) CHF (congestive heart failure): (10) Hyperlipidemia: Qualifiers: Hyperlipidemia type: mixed hyperlipidemia Qualified Code(s): E78.2 - Mixed hyperlipidemia (11) Transaminitis: (12) Generalized weakness: Plan Acute encephalopathy ? Head CT within normal limits, no focal neurologic deficits ? UA within normal limits - chest x-ray shows diffuse bilateral pulm edema and/or pneumonitis, ? Likely related to uremic encephalopathy ? Could be component of hyponatremia ? Continue IV fluids ? Neurochecks, night stroke scale, aspiration precautions ? MRI of the brain ordered, no acute findings Uremic encephalopathy ? Monitor ? IV fluids Acute renal failure on chronic kidney disease, creatinine improving to 5 ? Patient has CKD, at times looking at her blood work she has had uremia ? Renal ultrasound within normal limits ? Urine studies ? Likely component related to Bactrim toxicity ? Likely component related to possibly Ozempic ? Consult nephrology ? Creatinine improved with conservative interventions, no plans on dialysis Transaminitis, Generalized weakness ? PT OT Acute on chronic anemia, 8.4 ? Iron studies, ferritin, Hemoccult stool Type 2 diabetes mellitus, continue Lantus 23 units twice daily, low-dose sliding scale Hypocalcemia, with hypoalbuminemia, corrected calcium 7.2, due to low ionized calcium, will start her on calcium by 1000 mg daily, Full code ? Heparin for DVT prophylaxis Plan for today, decrease fluids 50 cc an hour, monitor for fluid overload, calcium supplementation plan on discharging tomorrow Attestations 2 Medical Necessity Statement*: Patient requires hospitalization for hypocalcemia, acute renal failure Diagnoses Memory impairment R41.3 Generalized pain R52 Acute kidney injury superimposed on chronic kidney disease N17.9; N18.9 Type 2 diabetes mellitus with hyperglycemia, with long-term current use of insulin E11.65; Z79.4 Diabetes mellitus type: type 2 Diabetes mellitus termite control representative insulin use: with intermediate use Diabetes mellitus complication status: with hyperglycemia Abnormal CT of brain R90.89 Acute encephalopathy G93.40 Uremic encephalopathy G93.49; N19 Essential hypertension I10 Hypertension type: essential hypertension CHF (congestive heart failure) I50.9 Mixed hyperlipidemia E78.2 Hyperlipidemia type: mixed hyperlipidemia Transaminitis R74.01 Generalized weakness R53.1
[2024-05-19] MEDS: sodium chloride 0.9% 1,000 ML 50 ML IV (13:57)
[2024-05-19 16:28] LABS: Glucose Point of Care 118 mg/dL (70-110)
--- NOTE | 2024-05-19 17:13 | PC.NURSE ---
Provider is notified that patient is more anxious today. She is complaining of being restless and shaky. Provider ordered her xanax to be TID PRN. order entered.
[2024-05-19 20:09] LABS: Glucose Point of Care 159 mg/dL (70-110)
[2024-05-20] VITALS (9 sets, daily range): BP systolic 122–147; BP diastolic 61–73; PULSE 56–77; RESP 18–21; TEMP 36.2–37; O2SAT 90–98
[2024-05-20 05:24] LABS: Glucose Point of Care 65 mg/dL (70-110)
[2024-05-20] MEDS: dextrose 10% 125 ML 750 ML IV (05:26)
[2024-05-20 05:54] LABS: Glucose Point of Care 108 mg/dL (70-110)
[2024-05-20] MEDS: levothyroxine 88 mcg Tablet PO (06:09)
[2024-05-20 06:21] LABS: Basophils % 0.5 %; Eosinophils # 0.1 10^3/uL (0.0-0.8); Hematocrit 27.6 % (36-47); Lymphocytes # 1.8 10^3/uL (0.8-4.8); Lymphocytes % 29.3 %; Mean Corpuscular HGB Conc 31.5 g/dL (30-55); Mean Corpuscular Hemoglobin 29.9 pg (27-33); Mean Corpuscular Volume 94.8 fl (85-98); Mean Platelet Volume 10.7 fL (7.4-10.4); Monocytes # 0.8 10^3/uL (0.2-0.9); Monocytes % 13.7 %; Neutrophils # 3.35 10^3/uL (1.8-7.7); Nucleated Red Blood Cells % 0 %; Platelet Count 166 10^3/cmm (157-399); Red Blood Count 2.91 10^6/uL (3.85-5.65); Red Cell Distribution Width 12.9 % (12.1-15.1); White Blood Count 6.08 10^3/uL (3.29-11.43)
[2024-05-20 06:40] LABS: Anion Gap 15.4 (5-19); Blood Urea Nitrogen 59 mg/dL (8-23); Calcium 6.1 mg/dL (8.5-10.5); Carbon Dioxide 31 mmol/L (22-29); Chloride 99 mmol/L (98-107); Creatinine Clr Calc Pharmacy 7.7527; Glucose 65 mg/dL (65-115); Osmolality Calculated 309 mOsm/kg (285-295); Potassium 3.4 mmol/L (3.5-5.1); Sodium 142 mmol/L (136-145)
--- NOTE | 2024-05-20 07:26 | P.PN_ITS ---
Subjective 2 Subjective: feels ok Medications: Reviewed: Yes Vitals/I&O/Wt Last Vital Signs Temp 97.1 F L 05/20/24 04:00 Pulse 56 L 05/20/24 04:57 Resp 18 05/20/24 04:00 BP 122/61 05/20/24 04:00 Pulse Ox 94 05/20/24 04:00 O2 Del Method Room Air 05/20/24 04:00 05/19/24 05/20/24 05/20/24 22:59 06:59 14:59 Intake Total 480 / 2250 485 / 2735 Output Total 850 / 1625 600 / 2225 Balance -370 / 625 -115 / 510 Physical Exam 2 Narrative: awake , alert HEENT s1s2 RRR per report Lungs clear per report No edema Data 05/20/24 05:05 05/20/24 05:05 A&P Assessment and plan (1) Acute kidney injury superimposed on chronic kidney disease: 1. Acute on chronic kidney disease stage IV: Baseline creatinine in the 3 range now creatinine has worsened to 5.7 associated with uremia and metabolic acidosis. NICOLAS likely contributed by prerenal in the setting of recent Ozempic use. Has normal renal ultrasound. -continue IVF and monitor renal fxn - noted renal fxn improving , pt on RA, and lytes stable , UOP picked up --> can DC home with close nephrology follow up - no acute indication for HD currently -Avoid nephrotoxins and IV contrast studies. 2. Metabolic acidosis: improved 3. Hyponatremia: Hypovolemic likely monitor History of diabetes History of hypertension Anemia: Hemoglobin 8.7, check iron studies will order JORDEN Patient evaluated using audiovisual cart. 20 minutes. Attestations 2 Medical Necessity Statement*: per deepthi Coding Level of Care Code Acute Code for Chg Fwd Diagnoses Acute kidney injury superimposed on chronic kidney disease N17.9; N18.9
[2024-05-20] MEDS: cholecalciferol (vitamin D3) 1,000 unit Tablet 2000 UNIT PO (08:25)
[2024-05-20] MEDS: calcium carbonate 500 mg Chew Tablet 1000 MG PO (08:25)
[2024-05-20] MEDS: heparin 5,000 unit/mL INJ 1 mL 5000 UNIT SUBCUT ×2 (08:25→20:21)
[2024-05-20] MEDS: aspirin 81 mg EC Tablet PO (08:25)
[2024-05-20] MEDS: ALPRAZolam 0.5 mg Tablet 0.25 MG PO ×2 (08:30→17:54)
--- NOTE | 2024-05-20 09:22 | PC.NURSE ---
Updated provider on low blood sugars overnight. Lantus 23 units held per Doctors orders.
--- NOTE | 2024-05-20 10:10 | P.PN_ITS ---
Subjective 2 Subjective: She feels shaky today. Does not feel cold. No fever or chills Vitals/I&O/Wt Last Vital Signs Temp 97.8 F 05/20/24 08:00 Pulse 72 05/20/24 08:00 Resp 21 H 05/20/24 08:00 BP 126/73 05/20/24 08:00 Pulse Ox 98 05/20/24 08:00 O2 Del Method Room Air 05/20/24 08:00 05/19/24 05/20/24 05/20/24 22:59 06:59 14:59 Intake Total 480 / 2250 485 / 2735 240 / 240 Output Total 850 / 1625 600 / 2225 Balance -370 / 625 -115 / 510 240 / 240 Physical Exam 2 Const: COMMON NORMALS: patient oriented x3 and alert GENERAL APPEARANCE: c ooperative ORIENTATION/CONSCIOUSNESS: Yes awake OTHER: Coarse tremor/asterixis. HENMT: COMMON NORMALS: oropharynx normal Neck/C-Spine: COMMON NORMALS: no JVD Resp: COMMON NORMALS: normal respiratory effort and clear to auscultation bilaterally AUSCULTATION: clear to auscultation bilaterally Cardio: COMMON NORMALS: no JVD, regular rhythm, S1 normal heart sound present, S2 normal heart sound present and No murmurs present (Cardio) RHYTHM: regular rhythm HEART SOUNDS: S1 normal heart sound present and S2 normal heart sound present GI: COMMON NORMALS: Normal to inspection, nondistended, normoactive bowel sounds present, Soft to palpation and non-tender PALPATION: Yes Soft to palpation Extremity: COMMON NORMALS: no joint enlargement and no pedal edema Neuro: COMMON NORMALS: patient oriented x3 and moves all extremities S ENSORIUM/ORIENTATION: Yes alert Data 05/20/24 05:05 05/20/24 05:05 A&P Assessment and plan (1) Memory impairment: (2) Generalized pain: (3) Acute kidney injury superimposed on chronic kidney disease: (4) Diabetes mellitus: See above Qualifiers: Diabetes mellitus complication status: with hyperglycemia Diabetes mellitus exterminator termite insulin use: with custodial use Diabetes mellitus type: type 2 Qualified Code(s): E11.65 - Type 2 diabetes mellitus with hyperglycemia; Z79.4 - exterminator termite (current) use of insulin (5) Abnormal CT of brain: MRI of brain (6) Acute encephalopathy: (7) Uremic encephalopathy: (8) Hypertension: Qualifiers: Hypertension type: essential hypertension Qualified Code(s): I10 - Essential (primary) hypertension (9) CHF (congestive heart failure): (10) Hyperlipidemia: Qualifiers: Hyperlipidemia type: mixed hyperlipidemia Qualified Code(s): E78.2 - Mixed hyperlipidemia (11) Transaminitis: (12) Generalized weakness: Plan Acute encephalopathy Reports having some shakiness , with coarse tremors, possible asterixis Raps was treated today. Suspect metabolic encephalopathy. Possibly secondary to hypoglycemia earlier today, otherwise likely due to renal failure. Also was hypoglycemic this morning glucose under 65. Currently glucose rechecked 116. She states her glucose at home usually runs in the 100s. Does not seem to have relative hypoglycemia at this time. Reviewed vitals, CBC, BMP, glucose Accu-Cheks, blood culture. Discussed with nursing, lining caser. ? Head CT within normal limits, no focal neurologic deficits ? UA within normal limits - chest x-ray shows diffuse bilateral pulm edema and/or pneumonitis, ? Likely related to uremic encephalopathy ? Hyponatremia resolved. ? Continue IV fluids ? Neurochecks, night stroke scale, aspiration precautions ? MRI of the brain ordered, no acute findings Hypoglycemia: Held insulin Lantus for now. Her Humalog dose was held. Encourage oral intake. Add protein shakes as she does not have good oral intake. Uremic encephalopathy. Repeat CMP. ? Monitor ? IV fluids Acute renal failure on chronic kidney disease, creatinine improving to 5 ? Patient has CKD, at times looking at her blood work she has had uremia ? Renal ultrasound within normal limits ? Urine studies ? Likely component related to Bactrim toxicity ? Likely component related to possibly Ozempic ? Consult nephrology ? Creatinine improved with conservative interventions, no plans on dialysis Transaminitis, follow-up CMP requested. Generalized weakness ? PT OT Acute on chronic anemia, 8.7 ? Iron studies, ferritin, Hemoccult stool Type 2 diabetes mellitus, hold Lantus due to hypoglycemia. Reassess glucose. Consider restarting Lantus at lower dose. Add nutritional supplements. Hypocalcemia, with hypoalbuminemia, corrected calcium 7.2, due to low ionized calcium, will start her on calcium by 1000 mg daily, Full code ? Heparin for DVT prophylaxis Plan for today, decrease fluids 50 cc an hour, monitor for fluid overload, calcium supplementation plan on discharging tomorrow Attestations 2 Medical Necessity Statement*: Continue admission for reassessment of hypoglycemia, encephalopathy. and High MDM includes number and complexity of problems actively addressed during encounter and amount and/or complexity of data reviewed/ordered [ resulted lab(s)/test(s), ordered lab(s)/test(s) and other healthcare professional discussion] as documented Diagnoses Memory impairment R41.3 Generalized pain R52 Acute kidney injury superimposed on chronic kidney disease N17.9; N18.9 Type 2 diabetes mellitus with hyperglycemia, with long-term current use of insulin E11.65; Z79.4 Diabetes mellitus complication status: with hyperglycemia Diabetes mellitus custodial insulin use: with exterminator termite use Diabetes mellitus type: type [address] of brain R90.89 Acute encephalopathy G93.40 Uremic encephalopathy G93.49; N19 Essential hypertension I10 Hypertension type: essential hypertension CHF (congestive heart failure) I50.9 Mixed hyperlipidemia E78.2 Hyperlipidemia type: mixed hyperlipidemia Transaminitis R74.01 Generalized weakness R53.1
--- NOTE | 2024-05-20 10:14 | PC.NURSE ---
Provider ordered to stop normal saline at this time.
[2024-05-20 12:50] LABS: Glucose Point of Care 116 mg/dL (70-110)
[2024-05-20 12:50] LABS: Glucose Point of Care 86 mg/dL (70-110)
--- NOTE | 2024-05-20 13:01 | PC.NURSE ---
Nursing noticed that her body shakes and anxiety did improve when patients entered the room. Patient was more comfortable and calm with his presents.
--- NOTE | 2024-05-20 13:05 | PC.NURSE ---
Patient was given an apple juice after she ate 25% of her lunch since her blood sugar was 86.
[2024-05-20 13:10] LABS: DNA AB (DS) CRITHIDIA,IFA NEGATIVE (NEGATIVE)
[2024-05-20 14:04] LABS: Glucose Point of Care 145 mg/dL (70-110)
--- NOTE | 2024-05-20 15:10 | PC.OT ---
OT TREATMENT ATTEMPTED IN A.M. AND P.M. AT FIRST ATTEMPT THE PATIENT IS SLEEPING AND HER REQUESTS THAT I COME BACK LATER. AT SECOND ATTEMPT THE PATIENT CONTINUES TO SLEEP SOUNDLY. WILL ATTEMPT AGAIN AT A LATER TIME.
[2024-05-20 16:27] LABS: Glucose Point of Care 134 mg/dL (70-110)
[2024-05-20 20:25] LABS: Glucose Point of Care 179 mg/dL (70-110)
[2024-05-21] VITALS (9 sets, daily range): BP systolic 128–152; BP diastolic 66–78; PULSE 45–94; RESP 17–18; TEMP 36.4–37.1; O2SAT 91–97
[2024-05-21] MEDS: levothyroxine 88 mcg Tablet PO (03:55)
[2024-05-21] MEDS: dextrose 10% 125 ML 750 ML IV (04:48)
--- NOTE | 2024-05-21 05:21 | PC.NURSE ---
Nurse went in to check on patient due to patient coming off tele and patient was found trying to get OOB. The nurse assisted patient up to the commode but patient appeared very weak and not acting appropriately. The patient was assisted back into bed and nurse checked accucheck which was 69. The patient was awake and alert but would not agree to eat or drink anything she kept saying, No thank you I dont want anything . Bolus of dextrose 10% of 125ml was administered, recheck of accucheck was 107 after that, patient still did not want a snack. Messaged to make her aware of hypoglycemic episode.
[2024-05-21 05:22] LABS: Glucose Point of Care 69 mg/dL (70-110)
[2024-05-21 05:22] LABS: Glucose Point of Care 107 mg/dL (70-110)
--- NOTE | 2024-05-21 06:11 | P.PN_ITS ---
Subjective 2 Subjective: no new c/o Medications: Reviewed: Yes Vitals/I&O/Wt Last Vital Signs Temp 98.5 F 05/21/24 04:00 Pulse 76 05/21/24 05:47 Resp 17 05/21/24 04:00 BP 140/72 05/21/24 04:00 Pulse Ox 93 05/21/24 04:00 O2 Del Method Room Air 05/21/24 04:00 05/20/24 05/20/24 05/21/24 14:59 22:59 06:59 Intake Total 1480 / 1480 200 / 1680 225 / 1905 Output Total 550 / 550 700 / 1250 450 / 1700 Balance 930 / 930 -500 / 430 -225 / 205 Physical Exam 2 Narrative: awake , alert HEENT s1s2 RRR per report Lungs clear per report No edema Data 05/22/24 04:20 05/21/24 05:57 A&P Assessment and plan (1) Acute kidney injury superimposed on chronic kidney disease: 1. Acute on chronic kidney disease stage IV: Baseline creatinine in the 3 range now creatinine has worsened to 5.7 associated with uremia and metabolic acidosis. NICOLAS likely contributed by prerenal in the setting of recent Ozempic use. Has normal renal ultrasound. -continue IVF and monitor renal fxn - noted renal fxn improving , pt on RA, and lytes stable , UOP picked up --> can DC home with close nephrology follow up - no acute indication for HD currently -Avoid nephrotoxins and IV contrast studies. 2. Metabolic acidosis: improved 3. Hyponatremia: Hypovolemic likely monitor History of diabetes History of hypertension Anemia: Hemoglobin 8.7, check iron studies will order JORDEN Patient evaluated using audiovisual cart. 20 minutes. Attestations 2 Medical Necessity Statement*: per leannmi Coding Level of Care Code Acute Code for Chg Fwd Diagnoses Acute kidney injury superimposed on chronic kidney disease N17.9; N18.9
[2024-05-21 06:37] LABS: Basophils % 0.4 %; Eosinophils # 0.1 10^3/uL (0.0-0.8); Hematocrit 30.2 % (36-47); Lymphocytes # 1.9 10^3/uL (0.8-4.8); Lymphocytes % 26.8 %; Mean Corpuscular HGB Conc 31.8 g/dL (30-55); Mean Corpuscular Hemoglobin 30.4 pg (27-33); Mean Corpuscular Volume 95.6 fl (85-98); Mean Platelet Volume 10.8 fL (7.4-10.4); Monocytes # 0.9 10^3/uL (0.2-0.9); Monocytes % 13.2 %; Neutrophils # 4.09 10^3/uL (1.8-7.7); Neutrophils % 58.2 %; Nucleated Red Blood Cells % 0 %; Platelet Count 182 10^3/cmm (157-399); Red Blood Count 3.16 10^6/uL (3.85-5.65); Red Cell Distribution Width 12.8 % (12.1-15.1); White Blood Count 7.04 10^3/uL (3.29-11.43)
[2024-05-21 06:41] LABS: Glucose Point of Care 96 mg/dL (70-110)
[2024-05-21 07:00] LABS: Blood Urea Nitrogen 55 mg/dL (8-23); Calcium 6.7 mg/dL (8.5-10.5); Carbon Dioxide 29 mmol/L (22-29); Chloride 100 mmol/L (98-107); Creatinine Clr Calc Pharmacy 8.0898; Glucose 105 mg/dL (65-115); Osmolality Calculated 311 mOsm/kg (285-295); Sodium 143 mmol/L (136-145)
[2024-05-21 07:06] LABS: Anion Gap 18.4 (5-19); Potassium 4.4 mmol/L (3.5-5.1)
[2024-05-21] MEDS: aspirin 81 mg EC Tablet PO (08:50)
[2024-05-21] MEDS: calcium carbonate 500 mg Chew Tablet 1000 MG PO (08:51)
[2024-05-21] MEDS: heparin 5,000 unit/mL INJ 1 mL 5000 UNIT SUBCUT ×2 (08:52→21:03)
[2024-05-21] MEDS: cholecalciferol (vitamin D3) 1,000 unit Tablet 2000 UNIT PO (08:52)
--- NOTE | 2024-05-21 10:51 | PC.NURSE ---
This RN has reviewed DENNISE Zhou nurse residence charting and agrees with all documentation.
[2024-05-21 11:12] LABS: Glucose Point of Care 111 mg/dL (70-110)
[2024-05-21 11:19] LABS: Glucose Point of Care 263 mg/dL (70-110)
[2024-05-21 12:04] LABS: Glucose Point of Care 316 mg/dL (70-110)
[2024-05-21] MEDS: insulin lispro 100 unit/1 mL SUBCUT ×3 (12:31→17:16)
[2024-05-21 13:44] LABS: Glucose Point of Care 413 mg/dL (70-110)
--- NOTE | 2024-05-21 14:21 | PC.OT ---
OT TREATMENT ATTEMPTED TWICE TODAY; A.M. AND P.M. PATIENT IS SLEEPING SOUNDLY AND DOES NOT AWAKEN. REQUESTS TO LET HER SLEEP.
--- NOTE | 2024-05-21 14:28 | PC.NURSE ---
Physician orders to give humalog 5units one time now for glucose of 413
[2024-05-21 14:36] LABS: Glucose Point of Care 336 mg/dL (70-110)
[2024-05-21 16:08] LABS: Glucose Point of Care 210 mg/dL (70-110); Glucose Point of Care 234 mg/dL (70-110)
[2024-05-21 16:41] LABS: Glucose Point of Care 192 mg/dL (70-110)
[2024-05-21 18:46] LABS: Glucose Point of Care 69 mg/dL (70-110)
[2024-05-21 19:06] LABS: Glucose Point of Care 95 mg/dL (70-110)
--- NOTE | 2024-05-21 19:22 | P.PN_ITS ---
Subjective 2 Subjective: This morning she was not feeling well. Blood glucose was low again at 65. She subsequently did have a good breakfast. Vitals/I&O/Wt Last Vital Signs Temp 98.7 F 05/21/24 16:30 Pulse 68 05/21/24 16:30 Resp 17 05/21/24 11:02 BP 150/66 05/21/24 16:30 Pulse Ox 91 05/21/24 16:30 O2 Del Method Room Air 05/21/24 16:30 05/21/24 05/21/24 05/21/24 06:59 14:59 22:59 Intake Total 225 / 1905 480 / 480 Output Total 450 / 1700 700 / 700 Balance -225 / 205 -220 / -220 Physical Exam 2 Narrative: Accompanied by her . Const: COMMON NORMALS: patient oriented x3 and alert GENERAL APPEARANCE: c ooperative ORIENTATION/CONSCIOUSNESS: Yes awake OTHER: Coarse tremor/asterixis is improved. HENMT: COMMON NORMALS: oropharynx normal Neck/C-Spine: COMMON NORMALS: no JVD Resp: COMMON NORMALS: normal respiratory effort and clear to auscultation bilaterally AUSCULTATION: clear to auscultation bilaterally Cardio: COMMON NORMALS: no JVD, regular rhythm, S1 normal heart sound present, S2 normal heart sound present and No murmurs present (Cardio) RHYTHM: regular rhythm HEART SOUNDS: S1 normal heart sound present and S2 normal heart sound present GI: COMMON NORMALS: Normal to inspection, nondistended, normoactive bowel sounds present, Soft to palpation and non-tender PALPATION: Yes Soft to palpation Extremity: COMMON NORMALS: no joint enlargement and no pedal edema Neuro: COMMON NORMALS: patient oriented x3 and moves all extremities S ENSORIUM/ORIENTATION: Yes alert Data 05/21/24 05:57 05/21/24 05:57 A&P Assessment and plan (1) Memory impairment: (2) Generalized pain: (3) Acute kidney injury superimposed on chronic kidney disease: (4) Diabetes mellitus: See above Qualifiers: Diabetes mellitus type: type 2 Diabetes mellitus correction insulin use: with intermodal customer service use Diabetes mellitus complication status: with hyperglycemia Qualified Code(s): E11.65 - Type 2 diabetes mellitus with hyperglycemia; Z79.4 - correction (current) use of insulin (5) Abnormal CT of brain: MRI of brain (6) Acute encephalopathy: (7) Uremic encephalopathy: (8) Hypertension: Qualifiers: Hypertension type: essential hypertension Qualified Code(s): I10 - Essential (primary) hypertension (9) CHF (congestive heart failure): (10) Hyperlipidemia: Qualifiers: Hyperlipidemia type: mixed hyperlipidemia Qualified Code(s): E78.2 - Mixed hyperlipidemia (11) Transaminitis: (12) Generalized weakness: Plan Acute encephalopathy she is still having coarse tremor, asterixis, but this appears to be somewhat better compared to yesterday. Morning she was not feeling well again, and again had an episode of hypoglycemia glucose down to 65 with acute metabolic encephalopathy. Given sliding scale insulin after blood glucose started rising this afternoon up to 400, but subsequently again with hypoglycemia. Cut down insulin sliding scale. Monitor for risk of hypoglycemia. Reviewed vitals, CBC, BMP, glucose Accu-Cheks, blood culture. Discussed with her nurse and director case management. ? Head CT within normal limits, no focal neurologic deficits ? UA within normal limits - chest x-ray shows diffuse bilateral pulm edema and/or pneumonitis, ? Likely related to uremic encephalopathy ? Hyponatremia resolved. ? Continue IV fluids ? Neurochecks, night stroke scale, aspiration precautions ? MRI of the brain ordered, no acute findings Hypoglycemia, labile blood glucose: Again with symptomatic hypoglycemia this morning, blood glucose down to 65, with some confusion, difficulty walking. Improved after dextrose. Continue to hold long-acting insulin. In the afternoon becoming hyperglycemic, blood sugars up to 400s, given sliding scale insulin, subsequently blood sugar with an episode down to 69. Will further decrease sliding scale insulin parameters cutting them in half. Reassess blood glucose. Uremic encephalopathy. Repeat CMP. ? Monitor ? Stop IV fluids Acute renal failure on chronic kidney disease, creatinine improving to 5 ? Patient has CKD, at times looking at her blood work she has had uremia ? Renal ultrasound within normal limits ? Urine studies ? Likely component related to Bactrim toxicity ? Likely component related to possibly Ozempic ? Consult nephrology ? Creatinine improved with conservative interventions, no plans on dialysis Transaminitis, follow-up CMP requested. Generalized weakness ? PT OT Acute on chronic anemia, 8.7 ? Iron studies, ferritin, Hemoccult stool Type 2 diabetes mellitus, hold Lantus due to hypoglycemia. Reassess glucose. Consider restarting Lantus at lower dose. Add nutritional supplements. Hypocalcemia, with hypoalbuminemia, corrected calcium 7.2, due to low ionized calcium, will start her on calcium by 1000 mg daily, Full code ? Heparin for DVT prophylaxis Plan for today, decrease fluids 50 cc an hour, monitor for fluid overload, calcium supplementation plan on discharging tomorrow Attestations 2 Medical Necessity Statement*: Continue admission for assessment of management of hypoglycemia episodes, further adjustment of insulin therapy. Diagnoses Memory impairment R41.3 Generalized pain R52 Acute kidney injury superimposed on chronic kidney disease N17.9; N18.9 Type 2 diabetes mellitus with hyperglycemia, with long-term current use of insulin E11.65; Z79.4 Diabetes mellitus type: type 2 Diabetes mellitus intermodal customer service insulin use: with correction use Diabetes mellitus complication status: with hyperglycemia Abnormal CT of brain R90.89 Acute encephalopathy G93.40 Uremic encephalopathy G93.49; N19 Essential hypertension I10 Hypertension type: essential hypertension CHF (congestive heart failure) I50.9 Mixed hyperlipidemia E78.2 Hyperlipidemia type: mixed hyperlipidemia Transaminitis R74.01 Generalized weakness R53.1
[2024-05-21 20:14] LABS: Glucose Point of Care 98 mg/dL (70-110)
[2024-05-21] MEDS: ALPRAZolam 0.5 mg Tablet 0.25 MG PO (21:04)
[2024-05-21 22:21] LABS: Glucose Point of Care 75 mg/dL (70-110)
[2024-05-21 23:15] LABS: Glucose Point of Care 101 mg/dL (70-110)
[2024-05-22] VITALS (10 sets, daily range): BP systolic 131–148; BP diastolic 65–90; PULSE 70–88; RESP 16–18; TEMP 36.9–37; O2SAT 92–95; BMI 28.4
[2024-05-22 00:19] LABS: Glucose Point of Care 103 mg/dL (70-110)
[2024-05-22 01:55] LABS: Glucose Point of Care 99 mg/dL (70-110)
--- NOTE | 2024-05-22 03:36 | ECG_ITS ---
[facility] Test Date: 2024-05-22 Pat Name: Annalise Mariscal Department: Room: 278 Gender: Female Sterile Processing Manager: : [id number] Requested By: Ryan Pace Order Number: [id number] Miladis MD: Ace Cuevas M.D. Measurements Intervals [place] Rate: 75 P: 58 UT: 304 QRS: -48 QRSD: 114 T: 27 QT: 423 QTc: 475 Interpretive Statements SINUS RHYTHM WITH FIRST DEGREE AV BLOCK INCOMPLETE RIGHT BUNDLE BRANCH BLOCK [90+ ms QRS DURATION, TERMINAL R IN V1/V2, 40+ ms S IN I/aVL/V4/V5/V6] LEFT ANTERIOR FASCICULAR BLOCK [QRS AXIS <= -45, QR IN I, RS IN II] POSSIBLE ANTERIOR MYOCARDIAL INFARCTION , PROBABLY OLD [30 ms Q WAVE IN V3/V4, OR R < 0.2 mV IN V4] Compared to ECG 05/14/2024 15:07:57 Incomplete right bundle-branch block now present Myocardial infarct finding now present Right bundle-branch block no longer present Electronically Signed On 05-23-2024 0:07:32 CDT by Ace Cuevas M.D. [email or web address]
--- NOTE | 2024-05-22 04:20 | PC.NURSE ---
Patient stating tht she had chest tightening and doesn't feel right . Hospitalist notified and ekg performed.
[2024-05-22 05:08] LABS: Basophils % 0.4 %; Eosinophils # 0.1 10^3/uL (0.0-0.8); Eosinophils % 0.7 %; Hematocrit 27.6 % (36-47); Lymphocytes # 2.9 10^3/uL (0.8-4.8); Lymphocytes % 36.6 %; Mean Corpuscular HGB Conc 31.5 g/dL (30-55); Mean Corpuscular Hemoglobin 29.4 pg (27-33); Mean Corpuscular Volume 93.2 fl (85-98); Mean Platelet Volume 10.4 fL (7.4-10.4); Monocytes # 1.1 10^3/uL (0.2-0.9); Monocytes % 13.3 %; Neutrophils % 48.5 %; Nucleated Red Blood Cells % 0 %; Platelet Count 197 10^3/cmm (157-399); Red Blood Count 2.96 10^6/uL (3.85-5.65); Red Cell Distribution Width 12.9 % (12.1-15.1); White Blood Count 8.04 10^3/uL (3.29-11.43)
[2024-05-22 05:23] LABS: Troponin T (5th) Once 46 ng/L (0-10)
[2024-05-22 05:25] LABS: Anion Gap 17.2 (5-19); Blood Urea Nitrogen 52 mg/dL (8-23); Calcium 6.2 mg/dL (8.5-10.5); Carbon Dioxide 25 mmol/L (22-29); Chloride 100 mmol/L (98-107); Glucose 84 mg/dL (65-115); Osmolality Calculated 299 mOsm/kg (285-295); Potassium 4.2 mmol/L (3.5-5.1); Sodium 138 mmol/L (136-145)
[2024-05-22 05:27] LABS: Creatinine Clr Calc Pharmacy 8.2239
[2024-05-22] MEDS: levothyroxine 88 mcg Tablet PO (06:13)
[2024-05-22 06:20] LABS: Glucose Point of Care 101 mg/dL (70-110)
[2024-05-22 06:20] LABS: Glucose Point of Care 96 mg/dL (70-110)
[2024-05-22] MEDS: calcium carbonate 500 mg Chew Tablet 1000 MG PO (08:20)
[2024-05-22] MEDS: aspirin 81 mg EC Tablet PO (08:20)
[2024-05-22] MEDS: cholecalciferol (vitamin D3) 1,000 unit Tablet 2000 UNIT PO (08:20)
[2024-05-22] MEDS: heparin 5,000 unit/mL INJ 1 mL 5000 UNIT SUBCUT (08:21)
--- NOTE | 2024-05-22 09:06 | XR_ITS ---
WS: [id number] Exam: XR chest 1V portable [id number] Date/Time of Exam: 05/22/2024 9:09 AM Reason For Exam: chest tightness Comparison 05/13/2024. The lungs are fully expanded. Mild cardiac enlargement unchanged. No pleural effusions. Regional bon y elements are intact. The mediastinum is normal in contour. XR/XR chest 1V portable [id number] IMPRESSION: 1. Mild cardiac enlargement. No acute process.
--- NOTE | 2024-05-22 09:08 | P.PN_ITS ---
Subjective 2 Subjective: no new c/o Medications: Reviewed: Yes Vitals/I&O/Wt Last Vital Signs Temp 98.6 F 05/22/24 04:00 Pulse 77 05/22/24 07:19 Resp 17 05/22/24 07:19 BP 131/65 05/22/24 07:19 Pulse Ox 93 05/22/24 07:19 O2 Del Method Room Air 05/22/24 07:19 05/21/24 05/22/24 05/22/24 22:59 06:59 14:59 Intake Total 240 / 720 Output Total 400 / 1100 550 / 1650 Balance -400 / -620 -310 / -930 Weight last 48 hrs Weight 70.505 kg Physical Exam 2 Narrative: awake , alert HEENT s1s2 RRR per report Lungs clear per report No edema Data 05/22/24 04:20 05/22/24 04:20 A&P Assessment and plan (1) Acute kidney injury superimposed on chronic kidney disease: 1. Acute on chronic kidney disease stage IV: Baseline creatinine in the 3 range now creatinine has worsened to 5.7 associated with uremia and metabolic acidosis. NICOLAS likely contributed by prerenal in the setting of recent Ozempic use. Has normal renal ultrasound. -off IVFs - noted renal fxn improving , pt on RA, and lytes stable , UOP picked up --> can DC home with close nephrology follow up -Avoid nephrotoxins and IV contrast studies. 2. Metabolic acidosis: improved 3. Hyponatremia: improved History of diabetes History of hypertension Anemia: Hemoglobin 8.7, check iron studies Patient evaluated using audiovisual cart. 20 minutes. Attestations 2 Medical Necessity Statement*: per deepthi Coding Level of Care Code Acute Code for Chg Fwd Diagnoses Acute kidney injury superimposed on chronic kidney disease N17.9; N18.9
--- NOTE | 2024-05-22 09:52 | PC.SOCIAL ---
IMM Update Pg. 2 of IMM updated and reviewed with patient who verbalized understanding. Copy provided.
[2024-05-22 11:36] LABS: Glucose Point of Care 310 mg/dL (70-110)
[2024-05-22 11:36] LABS: Troponin T (5th) Once 49 ng/L (0-10)
[2024-05-22] MEDS: insulin lispro 100 unit/1 mL SUBCUT (11:53)
--- NOTE | 2024-05-22 15:34 | PM.DCS ---
Discharge Providers Date of Admission: 05/16/24 13:45 Date of Discharge: May 22, 2024 Attending Provider at Admission: Mirella Torres MD Attending Provider at Discharge: Ryan Pace Primary Care Provider: Ariadne Campos MD Diagnoses at Discharge Discharge Diagnosis (1) Acute kidney injury superimposed on chronic kidney disease: Status: Acute Reason for Visit Reason for Visit: stroke like symtoms Sent by PCP Hospital Course Hospital Course Pleasant 83-year-old lady with diabetes, hypertension, CKD, presenting with acute renal failure, with dehydration, additionally on Ozempic, received Bactrim for a UTI. Initially with progressive worsening of renal function, creatinine up to 4.9, uremic, with acute metabolic encephalopathy, with confusion, hypocalcemia, received IV fluid, albumin, calcium, renal function showed gradual improvement. Mental status gradually improved as well, was noted to have some asterixis which had gradually resolved. She was assessed by nephrology. She is asked to follow-up with nephrology after discharge. During hospitalization she was also noted to have episodes of hypoglycemia and long-acting insulin was discontinued entirely. She discharges with low-dose sliding scale and will be checking her glucose more frequently at least 2-3 times a day. Please follow-up glucose, in case increasing in the morning consider starting low with long-acting insulin. She had an episode of diarrhea while in the hospital after having Glucerna she states that it happened to her before. His diarrhea was profuse we attempted to collect a stool sample prior to discharge, however, it had resolved without further bowel movements. Physical Exam Narrative: She is awake alert, in much better spirits, feeling much better. Tremor and encephalopathy resolved. She states she would like to return home. She did have an episode of diarrhea she states after having Glucerna. Const: COMMON NORMALS: patient oriented x3 and alert GENERAL APPEARANCE: cooperative ORIENTATION/CONSCIOUSNESS: Yes awake HENMT: COMMON NORMALS: oropharynx normal Neck/C-Spine: COMMON NORMALS: no JVD Resp: COMMON NORMALS: normal respiratory effort and clear to auscultation bilaterally AUSCULTATION: clear to auscultation bilaterally Cardio: COMMON NORMALS: no JVD, regular rhythm, S1 normal heart sound present, S2 normal heart sound present and No murmurs present (Cardio) RHYTHM: regular rhythm HEART SOUNDS: S1 normal heart sound present and S2 normal heart sound present GI: COMMON NORMALS: Normal to inspection, nondistended, normoactive bowel sounds present, Soft to palpation and non-tender PALPATION: Yes Soft to palpation Extremity: COMMON NORMALS: no joint enlargement and no pedal edema Neuro: COMMON NORMALS: patient oriented x3 and moves all extremities SENSORIUM/ORIENTATION: Yes alert Skin: COMMON NORMALS: no rashes or lesions noted GENERAL SKIN EXAM: no rashes or lesions noted Discharge Data Studies Completed and Pending Completed Studies During Hospitalization Category Date Time Status CT head wo con* [id number] Urgent Cat Scan 05/13/24 14:18 Completed CXRP [XR chest 1V portable [id number]] Routine Exams 05/22/24 09:06 Completed XR chest 1V portable [id number] Urgent Exams 05/13/24 14:18 Completed MR head wo con* [id number] Routine MRI 05/14/24 22:05 Completed US renal BI* [id number] Routine Ultrasound 05/14/24 11:02 Completed Pending at discharge Category Date Time Status Basic Metabolic Panel AM LABS Lab 05/23/24 04:00 Ordered Basic Metabolic Panel AM LABS Lab 05/24/24 04:00 Ordered C.Diff PCR (Lab) Routine Lab 05/22/24 10:43 Uncollected Complete Blood Count w/Auto AM LABS Lab 05/23/24 04:00 Ordered Complete Blood Count w/Auto AM LABS Lab 05/24/24 04:00 Ordered Radiology Impressions Head CT 05/13/24 14:18 IMPRESSION: 1. No acute intracranial hemorrhage or edema. 2. Mild atrophy and mild small vessel ischemic disease. Very similar to 04/17/2015. Renal Ultrasound 05/14/24 11:02 IMPRESSION: Normal renal ultrasound. Head MRI 05/14/24 22:05 IMPRESSION: 1. No evidence of restricted diffusion to suggest acute ischemia. 2. Mild small vessel changes. Moderate parenchymal volume loss. 3. Small vessel changes in the letitia. 4. Moderate symmetric atrophy temporal lobes and hippocampal formations. 5. Chronic punctate foci of hemosiderin in the RIGHT thalamus. 6. No other acute findings. Chest X-Ray 05/22/24 09:06 IMPRESSION: 1. Mild cardiac enlargement. No acute process. Laboratory Results WBC 8.04 10^3/uL (3.29-11.43) 05/22/24 04:20 RBC 2.96 10^6/uL (3.85-5.65) L 05/22/24 04:20 Hgb 8.70 g/dL (11.27-16.99) L 05/22/24 04:20 Hct 27.6 % (36-47) L 05/22/24 04:20 MCV 93.2 fl (85-98) 05/22/24 04:20 MCH 29.4 pg (27-33) 05/22/24 04:20 MCHC 31.5 g/dL (30-55) 05/22/24 04:20 RDW 12.9 % (12.1-15.1) 05/22/24 04:20 Plt Count 197 10^3/cmm (157-399) 05/22/24 04:20 MPV 10.4 fL (7.4-10.4) 05/22/24 04:20 Neut % (Auto) 48.5 % 05/22/24 04:20 Lymph % (Auto) 36.6 % 05/22/24 04:20 Winkler % (Auto) 13.3 % 05/22/24 04:20 Eos % (Auto) 0.7 % 05/22/24 04:20 Baso % (Auto) 0.4 % 05/22/24 04:20 Neut # (Auto) 3.90 10^3/uL (1.8-7.7) 05/22/24 04:20 Lymph # (Auto) 2.9 10^3/uL (0.8-4.8) 05/22/24 04:20 Winkler # (Auto) 1.1 10^3/uL (0.2-0.9) H 05/22/24 04:20 Eos # (Auto) 0.1 10^3/uL (0.0-0.8) 05/22/24 04:20 Baso # (Auto) 0.0 10^3/uL (0.0-0.1) 05/22/24 04:20 Nucleated RBC % (auto) 0 % 05/22/24 04:20 Nucleated RBCs # 0.0 /100WBC 05/22/24 04:20 PT 13.50 SECONDS (12.1-14.9) 05/13/24 14:38 INR 1.00 (0.8-1.2) 05/13/24 14:38 APTT 35.4 SECONDS (23.9-36.7) 05/13/24 14:38 Sodium 138 mmol/L (136-145) 05/22/24 04:20 Potassium 4.2 mmol/L (3.5-5.1) 05/22/24 04:20 Chloride 100 mmol/L (98-107) 05/22/24 04:20 Carbon Dioxide 25 mmol/L (22-29) 05/22/24 04:20 Anion Gap 17.2 (5-19) 05/22/24 04:20 BUN 52 mg/dL (8-23) H 05/22/24 04:20 Creatinine 4.6 mg/dL (0.5-0.9) H 05/22/24 04:20 GFR Calculation Not Reportable 05/22/24 04:20 Glucose 84 mg/dL (65-115) 05/22/24 04:20 POC Glucose 310 mg/dL (70-110) H 05/22/24 11:29 Estimat Average Glucose 200 05/14/24 03:32 Hemoglobin A1c 8.6 % (4.0-6.0) H 05/14/24 03:32 Calculated Osmolality 299 mOsm/kg (285-295) H 05/22/24 04:20 Lactic Acid 1.5 mmol/L (0.5-2.2) 05/13/24 14:38 Calcium 6.2 mg/dL (8.5-10.5) L 05/22/24 04:20 Ionized Calcium Apryl 0.8 mmol/L (1.1-1.4) L 05/18/24 18:05 Phosphorus 5.0 mg/dL (2.5-4.5) H 05/19/24 09:48 Magnesium 1.7 mg/dL (1.7-2.3) 05/19/24 09:48 Iron 14 ug/dL (37-145) L 05/14/24 03:32 TIBC 166 mcg/dl 05/14/24 03:32 % Saturation 8.4 % (20-50) L 05/14/24 03:32 Unsat Iron Binding 152 ug/dL (112-347) 05/14/24 03:32 Ferritin 935 ng/mL (15-150) H 05/14/24 03:32 Total Bilirubin 0.3 mg/dL (0.15-1.2) 05/19/24 09:48 AST 90 U/L (0-32) H 05/19/24 09:48 ALT 50 U/L (0-33) H 05/19/24 09:48 Alkaline Phosphatase 46 U/L (35-105) 05/19/24 09:48 Creatine Kinase 63 U/L (26-192) 05/14/24 03:32 Troponin T 5th Gen ng/L 49 ng/L (0-10) H 05/22/24 11:05 Troponin T Baseline 64 ng/L (0-10) H 05/14/24 12:56 Troponin T 120 Minute 57.72 ng/L (0-10) H 05/14/24 14:14 Delta Troponin T -6.28 ABS# (0-10) L 05/14/24 14:14 Troponin T Hi Sens 6Hr 58.95 ng/L (0-10) H 05/14/24 18:52 Troponin T Hi Sens 6Hr Delta -5.05 ng/L (0-12) L 05/14/24 18:52 NT-Pro-B Natriuret Pep 4651 pg/mL (0-450) H 05/18/24 05:59 Total Protein 5.4 g/dL (6.6-8.7) L 05/19/24 09:48 Albumin 2.5 g/dL (3.5-5.2) L 05/19/24 09:48 Globulin 2.9 g/dL (1.3-4.6) 05/19/24 09:48 25-OH Vitamin D Total 9 pg/mL (18-72) L 05/15/24 12:57 1,25 Dihydroxy Vit D2 <8 pg/mL 05/15/24 12:57 1,25 Dihydroxy Vit D3 9 pg/mL 05/15/24 12:57 TSH 5.05 uIU/mL (0.27-4.20) H 05/13/24 14:38 Free T4 1.09 ng/dL (0.82-1.77) 05/14/24 03:32 Free T3 0.9 PG/ML (2.0-4.4) L 05/14/24 03:32 PTH Intact 230.7 pg/mL (15-65) H 05/15/24 12:57 Calcium (PTH Intact) 6.5 mg/dL (8.5-10.5) L 05/15/24 12:57 Urine Color Yellow (Yellow) 05/18/24 15:45 Urine Appearance Clear (CLEAR) 05/18/24 15:45 Urine pH 9 (5-7) H 05/18/24 15:45 Ur Specific [place] 1.015 (1.005-1.030) 05/18/24 15:45 Urine Protein Neg (Negative) 05/18/24 15:45 Urine Glucose (UA) 2+ (Normal) H 05/18/24 15:45 Urine Ketones Negative (Negative) 05/18/24 15:45 Urine Blood Neg (Negative) 05/18/24 15:45 Urine Nitrate Negative (Negative) 05/18/24 15:45 Urine Bilirubin Neg (Negative) 05/18/24 15:45 Prot Sulfosalicylic Acd Negative (Negative) 05/18/24 15:45 Urine Urobilinogen Norm mg/dL (Negative) 05/18/24 15:45 Ur Leukocyte Esterase Negative (Negative) 05/18/24 15:45 Urine RBC None /hpf (0-2) 05/13/24 17:57 Urine WBC Rare /hpf (0-5) 05/13/24 17:57 Ur Eosinophil Smear Not Reportable 05/14/24 15:17 Ur Squamous Epith Cells None /hpf (0-5) 05/13/24 17:57 Amorphous Sediment 1+ /hpf 05/13/24 17:57 Urine Bacteria Trace /hpf (NONE) 05/13/24 17:57 Urine Eosinophils No eosinophils seen 05/14/24 15:17 Urine Osmolality 282 mOsm/kg (50-1200) 05/14/24 15:17 U Random Total Protein 47 mg/dL 05/14/24 15:17 Ur Random Sodium < 10 mmol/L 05/14/24 15:17 Ur Random Urea Nitrogn 383 mg/dL 05/14/24 15:17 Urine Creatinine 87 mg/dL (28-217) 05/14/24 15:17 Urine Opiates Screen Negative ng/mL (Negative) 05/14/24 15:17 Ur Barbiturates Screen Negative ng/mL (Negative) 05/14/24 15:17 Ur Phencyclidine Scrn Negative ng/mL (Negative) 05/14/24 15:17 Ur Amphetamines Screen Negative ng/mL (Negative) 05/14/24 15:17 U Benzodiazepines Scrn Negative ng/mL (Negative) 05/14/24 15:17 Urine Cocaine Screen Negative ng/mL (Negative) 05/14/24 15:17 U Marijuana (THC) Screen Negative ng/mL (Negative) 05/14/24 15:17 ABDIAZIZ Nuclear Membr Pat Nuclear, homogeneous A 05/14/24 12:56 ABDIAZIZ IFA Animal Tis Ttr 1:320 titer H 05/14/24 12:56 ABDIAZIZ IFA Animal Tis Res Positive (NEGATIVE) A 05/14/24 12:56 JOE-1 Antibody <1.0 neg AI (<1.0 NEG) 05/14/24 12:56 SS-A Antibody <1.0 neg AI (<1.0 NEG) 05/14/24 12:56 SS-B Antibody <1.0 neg AI (<1.0 NEG) 05/14/24 12:56 Sm ([place]) Antibody <1.0 neg AI (<1.0 NEG) 05/14/24 12:56 LICENSE EXAMINER Antibody <1.0 neg AI (<1.0 NEG) 05/14/24 12:56 Scl-70 Antibody <1.0 neg AI (<1.0 NEG) 05/14/24 12:56 Anti-ds DNA IgG ([place]) Negative (NEGATIVE) 05/14/24 12:56 Centromere B Antibody <1.0 neg AI (<1.0 NEG) 05/14/24 12:56 Thyroid Peroxidase Ab 1 IU/mL (<9) 05/14/24 12:56 Complement C3c 117 mg/dL 05/14/24 12:56 Complement C4c 29 mg/dL 05/14/24 12:56 CH50 Classical Pathway >60 U/mL (31-60) H 05/14/24 12:56 C. difficile (PCR) Negative (Negative) 05/14/24 10:13 Hepatitis A IgM Ab Non-reactive (Nonreactive) 05/14/24 03:32 Hep Bs Antigen Non-reactive (Nonreactive) 05/16/24 04:50 Hep Bs Antibody 27.0 (11.5-1000) 05/16/24 04:50 Hep B Core IgM Ab Non-reactive (Nonreactive) 05/14/24 03:32 Hepatitis C Antibody Non-reactive (Nonreactive) 05/14/24 03:32 HIV 1&2 Ab & HIV 1 Ag Non-reactive (Non-Reactiv) 05/14/24 03:32 HIV 1&2 Antibody Non-reactive (Non-Reactiv) 05/14/24 03:32 Blood Type O Negative 05/16/24 10:35 Rho(D) Type Rh negative 05/16/24 10:35 Antibody Screen Negative 05/16/24 10:35 Vitals Last Vital Signs Temp 98.6 F 05/22/24 04:00 Pulse 70 05/22/24 12:00 Resp 17 05/22/24 12:00 BP 148/70 05/22/24 12:00 Pulse Ox 92 05/22/24 11:42 O2 Del Method Room Air 05/22/24 11:42 Discharge Plan Discharge Patient Disposition: Home Condition: Stable Prescriptions: New levothyroxine 88 mcg Tablet 88 mcg PO QAM Qty: 90 0RF Humalog U-100 Insulin 100 unit/mL Solution See Rx Instructions .ROUTE .COMPLEX Qty: 10 3RF Rx Instructions: 3 times daily Glucose: 141-180 - 1 units 181-220 - 2 221-260 - 3 261-300 - 4 301-350 - 5 351-400 - 6 >400 - 7 units Continued aspirin [Adult Low Dose Aspirin] 81 mg tablet,delayed release (DR/EC) 81 mg PO DAILY (DME) OneTouch Ultra Test Strip See Rx Instructions .ROUTE .COMPLEX Qty: 100 5RF Dose Instruction: USE 1 STRIP TO CHECK GLUCOSE 4 TIMES DAILY DIRECTED Rx Instructions: USE 1 STRIP TO CHECK GLUCOSE 4 TIMES DAILY DIRECTED omega 1-ljw-dzx-fish oil [Fish Oil] 1,000 mg (120 mg-180 mg) capsule 1 cap PO BID Qty: 60 3RF (DME) pen needle, diabetic [BD Ultra-Fine Mini Pen Needle] 31 gauge x 3/16 needle See Rx Instructions .ROUTE .MEDSUPPLY Qty: 50 4RF Rx Instructions: As directed (DME) lancets Misc See Rx Instructions .Route Qty: 100 1RF Rx Instructions: As directed (DME) blood-glucose meter Kit See Rx Instructions .Route Qty: 1 0RF Rx Instructions: check blood sugar fasting and 2 hours after largest meal of the day (DME) Diabetic shoes See Rx Instructions .Route .MEDSUPPLY Qty: 1 0RF Rx Instructions: As directed triamcinolone acetonide 0.025 % cream See Rx Instructions .ROUTE .COMPLEX Rx Instructions: APPLY THIN LAYER TO AFFECTED AREA 1-2 TIMES DAILY NEEDED FOR ITCHING fluticasone propionate 50 mcg/actuation spray,suspension 2 spray intranasal DAILY PRN (Reason: ALLERGIES) rosuvastatin 20 mg tablet 20 mg PO DAILY Discontinued loratadine 10 mg tablet 10 mg PO DAILY hydrochlorothiazide 12.5 mg tablet 12.5 mg PO DAILY Ozempic 0.25 mg or 0.5 mg (2 mg/3 mL) pen injector 0.25 mg SUBCUT .ONCE WEEKLY levothyroxine 75 mcg tablet 75 mcg PO QAM insulin glargine [Lantus Solostar U-100 Insulin] 100 unit/mL (3 mL) insulin pen 23 unit SUBCUT BID Jardiance 25 mg tablet 25 mg PO DAILY Discharge Orders: Discharge Order (Routine); Ordered 05/22/24 Ordered By: Ryan Pace Referrals: Nephrology [Provider Group] - 4-7 days (NICOLAS on CKD [facility] in [place] Referral sent) Ariadne Campos MD [Primary Care Provider] - 4-7 days (We have notified your physician's clinic of the need for a follow-up appointment to be scheduled. If you have not heard from them within the next 2 business days, please call them directly. ) Discharge Diet: Cardiac and Diabetic Patient Instructions: Levothyroxine (By mouth), Insulin Lispro Protamine/Insulin Lispro (By injection), Heart Failure (DC), Acute Wound Care (DC), CHF Stoplight, Opioid Safety, Post Anesthesia Care, Pain Management Activity Restrictions/Additional Instructions: As discussed please continue to monitor blood sugars at home 3 times daily. Avoid low blood sugars as these are dangerous as discussed. Please stop the long-acting insulin entirely for now. Continue adjusted low-dose sliding scale insulin for high blood sugars. Continue consistent carbohydrate diet. Please stop Ozempic. Follow-up with your primary doctor and kidney doctor for reassessment of your kidney function. Follow-up with your primary doctor and kidney doctor with regards to low calcium level. Follow-up with your primary doctor and kidney doctor with regards to anemia. Please have your primary doctor follow-up your thyroid function. Seek medical attention in case of any worsening or new concerning symptoms Discharge Attestations Time Spent in Discharge Care*: greater than 30 min Quality Metrics Clinical Quality Measures [ No reported AMI, CVA or VTE this stay] Coding Level of Care Code 88763 Total time (in minutes) for Discharge: 50 Diagnoses Acute kidney injury superimposed on chronic kidney disease N17.9; N18.9
[2024-05-22 15:44] LABS: Glucose Point of Care 167 mg/dL (70-110)
--- NOTE | 2024-05-22 16:43 | PC.NURSE ---
Discharge Note Patient discharged to [home] via [w/c to POV] accompanied by [her ]. Discharge instructions reviewed with patient and/or retail wireless sales representative. Mobile pharmacy medications and/or prescriptions provided. Belongings/home medications returned.
== END 2024-05-22 16:43 | disposition home or self-care (01) | DRG 682 ==
LOC: ER 18:28 → CSU 19:44 → MEDSURG 05-17 18:40
PROVIDERS: Family Medicine; Hospitalist; Internal Medicine; Physician Assistant; Student in an Organized Health Care Education/Training Program; Admitting Provider Internal Medicine; Emergency Provider Family Medicine; PCP Family Medicine; Visit Provider Internal Medicine
DX: N17.9 Acute kidney failure, unspecified (principal); G93.41 Metabolic encephalopathy; I13.0 Hypertensive heart and chronic kidney disease with heart failure and stage 1 through stage 4 chronic kidney disease, or unspecified chronic kidney disease; E11.649 Type 2 diabetes mellitus with hypoglycemia without coma; E11.22 Type 2 diabetes mellitus with diabetic chronic kidney disease; N18.9 Chronic kidney disease, unspecified; D50.9 Iron deficiency anemia, unspecified; M81.0 Age-related osteoporosis without current pathological fracture; F41.9 Anxiety disorder, unspecified; E78.2 Mixed hyperlipidemia; K21.9 Gastro-esophageal reflux disease without esophagitis; E89.0 Postprocedural hypothyroidism; E11.65 Type 2 diabetes mellitus with hyperglycemia; R52 Pain, unspecified; R90.89 Other abnormal findings on diagnostic imaging of central nervous system; D63.1 Anemia in chronic kidney disease; E83.51 Hypocalcemia; E88.09 Other disorders of plasma-protein metabolism, not elsewhere classified; E86.0 Dehydration; R19.7 Diarrhea, unspecified; Z79.82 Long term (current) use of aspirin; Z79.4 Long term (current) use of insulin; Z87.440 Personal history of urinary (tract) infections; Z85.43 Personal history of malignant neoplasm of ovary
CPT/HCPCS: 36415; 36416; 70450; 70551; 71045; 76770; 80048; 80053; 80069; 80074; 80306; 81001; 81003; 82274; 82306; 82310; 82330; 82550; 82570; 82652; 82728; 82962; 83036; 83540; 83550; 83605; 83735; 83880; 83935; 83970; 84100; 84156; 84300; 84439; 84443; 84481; 84484; 84540; 85025; 85610; 85730; 85999; 86160; 86162; 86235; 86255; 86376; 86706; 86850; 86900; 87040; 87340; 87493; 87806; 92507; 92523; 92526; 92610; 93005; 96372; 97110; 97116; 97161; 97166; 97530; 97535; 99285; A9270; G0378; J1644; J1815; J7030; J7070; J7799; Q3014

== ENCOUNTER → 2024-05-29 12:57 | Outpatient (BNVA) | payer MEDICARE, SELFPAY | PROVIDERS: PCP Family Medicine; Visit Provider Family Medicine | DX: R41.82 Altered mental status, unspecified (principal); R41.3 Other amnesia | CPT/HCPCS: 81003; 87077; 87086; 87184 ==

== ENCOUNTER → 2024-06-12 12:05 | Outpatient (BNVA) | payer MEDICARE, SELFPAY | PROVIDERS: PCP Family Medicine; Visit Provider Family Medicine | DX: R30.0 Dysuria (principal); E11.65 Type 2 diabetes mellitus with hyperglycemia; Z79.4 Long term (current) use of insulin; N17.9 Acute kidney failure, unspecified; N18.9 Chronic kidney disease, unspecified; D64.9 Anemia, unspecified | CPT/HCPCS: 80053; 81003; 85025; 87086 ==

== ENCOUNTER → 2024-07-16 09:30 | Outpatient (BNVA) | payer MEDICARE, SELFPAY | PROVIDERS: PCP Family Medicine; Visit Provider Family Medicine | DX: N17.9 Acute kidney failure, unspecified (principal); N18.9 Chronic kidney disease, unspecified; E55.9 Vitamin D deficiency, unspecified | CPT/HCPCS: 80069; 82306; 82310; 83970; 85007; 85027 ==